=== PATIENT | male | born 1945 | race Caucasian/White ===

== ENCOUNTER 2021-02-04 19:05 | Emergency (ER) | payer MEDICARE, BC, SELFPAY ==
--- NOTE | ~2021-02-04 | CT_ITS ---
EXAMINATION: CT ABDOMEN AND PELVIS WITH CONTRAST CLINICAL INFORMATION: Upper abdominal pain COMPARISON: Previous CT of the abdomen and pelvis August 2015 TECHNIQUE: Multidetector volumetric images were obtained from the superior aspect of the liver through the pubic symphysis following administration 85 mL of Omnipaque 350 intravenous contrast. Sagittal and coronal reformatted images were obtained on the technologist's workstation. Oral contrast: Yes This CT examination was performed using dose optimization techniques as appropriate, variously including the following: *Automated exposure control *Adjustment of mA and/or kV according to patient size (this includes techniques or standardized protocols for targeted exams where dose is matched to indication/reason for exam; i.e. extremities or head) *Use of iterative reconstruction technique DLP: 826 mGy-cm FINDINGS: LUNG BASES: The visualized lung bases are unremarkable. LIVER, GALLBLADDER, AND BILIARY TREE: Artery. There is a small cyst seen high in the dome of the liver measuring 1 cm. The liver is otherwise unremarkable. The gallbladder is unremarkable with no evidence of radiopaque gallstones, gallbladder wall thickening, or obvious pericholecystic inflammatory changes. PANCREAS: Unremarkable. SPLEEN: Unremarkable. ADRENAL GLANDS: Unremarkable. KIDNEYS AND URETERS: There is bilateral mild renal cortical thinning or scarring. The kidneys are otherwise unremarkable. BLADDER: Unremarkable. GASTROINTESTINAL TRACT: There are postsurgical changes to the sigmoid colon. There is diverticulosis of the colon. There is question of mild wall thickening of the right colon and transverse colon versus changes due to underdistention. The small and large bowel are otherwise unremarkable. The appendix is not seen. There are surgical clips adjacent to the GE junction region. ABDOMINAL WALL: No significant hernia is appreciated. LYMPH NODES: Normal. VASCULAR: There is evidence of atherosclerotic disease. No aneurysm is seen. PELVIC VISCERA: Unremarkable. 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 There are degenerative changes of the lumbar spine. There is a cutaneous of fluid collection over the lower sacrum and coccyx. This measures 3 x 6 x 4.5 cm and AP longitudinal and transverse dimension. This is increased in size from August [address]/CT abdomen pelvis w con IMPRESSION: Diverticulosis of the colon. No evidence of diverticulitis. Question mild wall thickening/colitis of the right colon and transverse colon versus changes due to underdistention. Postsurgical changes to the sigmoid colon. Small liver cyst. Subcutaneous cyst over the lower sacrum and coccyx measuring 3 x 6 x 4.5 cm. This is increased in size from prior exam from 2016.
--- NOTE | 2021-02-04 19:11 | ED.NAVMDI ---
HPI - Nausea/Vomiting/Diarrhea General Chief complaint: Nausea/Vomiting/Diarrhea Stated complaint: N/V Time Seen by Provider: 02/04/21 19:08 Source: patient Mode of arrival: ambulatory Limitations: no limitations History of Present Illness HPI Narrative: Patient with history of gastritis/ulcers in the past woke up at 04:00 o'clock with increased vomiting mostly clear fluid with significant epigastric pain no diarrhea no melena. 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 off and on he gets vomiting episode not been admitted to the hospital for blood transfusion or active ulcer Related Data Previous Rx's Medication Instructions Recorded ondansetron 4 mg disintegrating 4 mg PO Q6-8H PRN #14 tab 02/05/21 tablet pantoprazole 40 mg tablet,delayed 40 mg PO DAILY #30 tab 02/05/21 release (Protonix) Allergies Allergy/AdvReac Type Severity Reaction Status Date / Time No Known Allergies Allergy Unverified 01/17/20 14:50 [No Known Allergies*] Review of Systems Review of Systems: Yes all other systems are reviewed and are negative [facility] Past Medical History Medical History Hypertension Social History Social History Advance Directives: No Physical Exam Vital Signs: Vital Signs: Last Vital Signs Temp 97.8 F 02/04/21 22:41 Pulse 97 02/05/21 00:00 Resp 16 02/05/21 00:00 BP 141/74 H 02/05/21 00:00 Pulse Ox 96 02/05/21 00:00 Body Mass Index 23.7 Appearance: Alert. Oriented X3. Moderate distress with active retching and vomiting Eyes: No pallor or icterus ENT: Pharynx normal. Oral Mucosa moist Neck: Normal inspection. Neck supple. CVS: Normal heart rate and rhythm. Pulses normal. Respiratory: No respiratory distress. Equal air entry bilateral, no wheezing/rales/rhonchi Abdomen: Soft , epigastric tenderness no rebound tenderness or guarding, Bowel sounds are present, no mass palpable, no CVA tenderness Skin: Skin warm and dry. Normal skin color. Normal skin turgor. Extremities: No lower extremity edema. No calf tenderness Neuro: Oriented X 3. MDM - Nausea/Vomiting/Diarrhea MDM Narrative Medical decision making narrative: Patient with acute gastritis with history of gastric ulcer no active bleeding now H&H stable patient taking p.o. fluids will discharge patient home advised to follow with addictions therapist for further evaluation including endoscopy Medical Records Attestation: I reviewed the patient's medical records. Lab Data Attestation: I reviewed the patient's lab results. Result diagrams: 02/04/21 19:25 02/04/21 19:25 Labs: Lab Results 02/04/21 02/04/21 02/04/21 Range/Units 19:25 19:25 19:25 WBC 12.2 H (4.8-10.8) X10*3/uL RBC 5.33 (4.60-5.80) X10*6/uL Hgb 19.0 H (14.0-18.0) g/dl Hct 48.3 (42-52) % MCV 90.6 (80-98) fL MCH 35.6 H (27.0-33.0) pg MCHC 39.3 H (31.0-36.0) g/dl RDW 11.6 (11.0-16.0) % Plt Count 110 L (160-400) X10*3/uL MPV 9.4 (9.4-12.4) fL Immature Gran % (Auto) 0.3 (0.0-0.4) % Neut % (Auto) 83.2 H (45-73) % Lymph % (Auto) 10.2 L (20-40) % [place] % (Auto) 5.9 (2-11) % Eos % (Auto) 0.1 (0-4) % Baso % (Auto) 0.3 (0-2) % Lymph # (Auto) 1.3 (1.2-4.9) X10*3/uL [place] # (Auto) 0.7 (0.1-1.2) X10*3/uL Eos # (Auto) 0.0 (0.0-0.4) X10*3/uL Baso # (Auto) 0.0 (0.0-0.2) X10*3/uL Abs Immat Gran (auto) 0.04 H (0.00-0.03) X10*3/uL Absolute Neuts (auto) 10.2 H (2.0-8.3) X10*3/uL Absolute Nucleated RBC 0.000 (0.0-0.012) X10*3/uL Nucleated RBC % (auto) 0.0 (0.0-0.2) /100WBC Smear Tech's Comments VERIFIED Sodium 132 L (135-145) mmol/L Potassium 3.6 (3.3-5.1) mmol/L Chloride 91 L (96-108) mmol/L Carbon Dioxide 20 L (22-29) mmol/L Anion Gap 25 H (12-20) BUN 9 (9-16) mg/dL Creatinine 1.31 (0.5-1.4) mg/dL Estim Creat Clear Calc 53.4 Estimated GFR 54 Random Glucose 124 H (60-115) mg/dL Lactic Acid 6.4 H* (0.5-2.0) mmol/L Lactic Acid Fup @ 2Hr (0.5-2.0) mmol/L Calcium 11.1 H (8.4-10.2) mg/dL Total Bilirubin 2.3 H (0.0-1.0) mg/dL AST 49 H (5-37) U/L ALT 36 (0-40) U/L Alkaline Phosphatase 144 H (39-117) U/L Total Protein 8.5 H (6.5-8.0) g/dL Albumin 5.1 H (3.5-5.0) g/dL Lipase 34 (8-78) U/L COVID-19 (JILLIAN) (Negative) COVID-19 Clin Com 02/04/21 02/04/21 Range/Units 23:04 Unknown WBC (4.8-10.8) X10*3/uL RBC (4.60-5.80) X10*6/uL Hgb (14.0-18.0) g/dl Hct (42-52) % MCV (80-98) fL MCH (27.0-33.0) pg MCHC (31.0-36.0) g/dl RDW (11.0-16.0) % Plt Count (160-400) X10*3/uL MPV (9.4-12.4) fL Immature Gran % (Auto) (0.0-0.4) % Neut % (Auto) (45-73) % Lymph % (Auto) (20-40) % [place] % (Auto) (2-11) % Eos % (Auto) (0-4) % Baso % (Auto) (0-2) % Lymph # (Auto) (1.2-4.9) X10*3/uL [place] # (Auto) (0.1-1.2) X10*3/uL Eos # (Auto) (0.0-0.4) X10*3/uL Baso # (Auto) (0.0-0.2) X10*3/uL Abs Immat Gran (auto) (0.00-0.03) X10*3/uL Absolute Neuts (auto) (2.0-8.3) X10*3/uL Absolute Nucleated RBC (0.0-0.012) X10*3/uL Nucleated RBC % (auto) (0.0-0.2) /100WBC Smear Tech's Comments Sodium (135-145) mmol/L Potassium (3.3-5.1) mmol/L Chloride (96-108) mmol/L Carbon Dioxide (22-29) mmol/L Anion Gap (12-20) BUN (9-16) mg/dL Creatinine (0.5-1.4) mg/dL Estim Creat Clear Calc Estimated GFR Random Glucose (60-115) mg/dL Lactic Acid (0.5-2.0) mmol/L Lactic Acid Fup @ 2Hr 1.0 (0.5-2.0) mmol/L Calcium (8.4-10.2) mg/dL Total Bilirubin (0.0-1.0) mg/dL AST (5-37) U/L ALT (0-40) U/L Alkaline Phosphatase (39-117) U/L Total Protein (6.5-8.0) g/dL Albumin (3.5-5.0) g/dL Lipase (8-78) U/L COVID-19 (JILLIAN) Negative (Negative) COVID-19 Clin Com See Note Discharge Plan Discharge Clinical Impression: Gastritis Qualifiers: Gastritis type: unspecified gastritis Chronicity: acute Gastritis bleeding: without bleeding Qualified Code(s): K29.00 - Acute gastritis without bleeding Patient Disposition: Home, Self-Care Instructions: Gastritis (ED) Additional Instructions: Avoid fried food Take medication as prescribed Follow-up with addictions therapist for further evaluation Prescriptions: New pantoprazole [Protonix] 40 mg tablet,delayed release (DR/EC) 40 mg PO DAILY Qty: 30 RF: 0 ondansetron 4 mg tablet,disintegrating 4 mg PO Q6-8H PRN (Reason: nausea and vomiting) Qty: 14 RF: 0 Referrals: Hong Mares MD [Physician] - 1 week Interventions: ED Discharge Assessment Last Done: 02/05/21 00:49 Discharge Date/Time: 02/05/21 00:51
[2021-02-04 19:15] VITALS: BP 140/80; BP 173/91; PULSE 115; PULSE 86; RESP 24; TEMP 36.6; O2SAT 100; O2SAT 98; BMI 23.7
[2021-02-04] MEDS: 0.9 % Sodium Chloride 1,000 ML 999 ML IVCONT ×2 (19:23→20:31)
[2021-02-04] MEDS: Prochlorperazine Edisylate 10 MG/2 ML VIAL IVPUSH (19:30)
[2021-02-04] MEDS: Famotidine/PF 20 MG/2 ML VIAL IVPUSH (19:30)
[2021-02-04 19:39] VITALS: BP 155/70
[2021-02-04 19:44] LABS: Basophils Percent Auto 0.3 % (0-2); Eosinophils Percent Auto 0.1 % (0-4); Hematocrit 48.3 % (42-52); Imm Gran Abs Auto 0.04 X10*3/uL (0.00-0.03); Imm Gran Pct Auto 0.3 % (0.0-0.4); Lymphocytes Absolute Auto 1.3 X10*3/uL (1.2-4.9); Lymphocytes Percent Auto 10.2 % (20-40); MANUAL DIFF FLAG SCAN; Mean Corpuscular Volume 90.6 fL (80-98); Mean Platelet Volume 9.4 fL (9.4-12.4); Monocytes Absolute Auto 0.7 X10*3/uL (0.1-1.2); Monocytes Percent Auto 5.9 % (2-11); Neutrophils Absolute Auto 10.2 X10*3/uL (2.0-8.3); Neutrophils Percent Auto 83.2 % (45-73); Platelet Count 110 X10*3/uL (160-400); Red Blood Count 5.33 X10*6/uL (4.60-5.80); Red Cell Distribution Width 11.6 % (11.0-16.0); SCAN SMEAR FLAG 1; White Blood Count 12.2 X10*3/uL (4.8-10.8)
[2021-02-04 19:54] LABS: Alanine Aminotransferase 36 U/L (0-40); Albumin Level 5.1 g/dL (3.5-5.0); Alkaline Phosphatase 144 U/L (39-117); Anion Gap 25 (12-20); Aspartate Amino Transferase 49 U/L (5-37); Bilirubin Total 2.3 mg/dL (0.0-1.0); Blood Urea Nitrogen 9 mg/dL (9-16); Calcium 11.1 mg/dL (8.4-10.2); Carbon Dioxide 20 mmol/L (22-29); Chloride 91 mmol/L (96-108); Creatinine Clr Calc Pharmacy 53.4; Estimated Glomerular Filt Rate 54; Glucose Random 124 mg/dL (60-115); Lipase 34 U/L (8-78); Potassium 3.6 mmol/L (3.3-5.1); Sodium 132 mmol/L (135-145); Total Protein 8.5 g/dL (6.5-8.0)
[2021-02-04 19:57] LABS: Lactic Acid 6.4 mmol/L (0.5-2.0)
[2021-02-04 20:00] VITALS: BP 173/90; PULSE 97; RESP 18; O2SAT 98
[2021-02-04] MEDS: iohexoL 350 MG/ML 100 ML INFUS..BTL IV (20:24)
[2021-02-04 20:25] LABS: Mean Corpuscular Hemoglobin 35.6 pg (27.0-33.0)
[2021-02-04 20:26] LABS: Mean Corpuscular HGB Conc 39.3 g/dl (31.0-36.0)
[2021-02-04 20:29] LABS: SLIDE REVIEW VERIFIED
--- NOTE | 2021-02-04 20:32 | PC.NURSE ---
pt is back from ct, no n/v at this time. skin warm and dry, no longer diaphoretic. pt resting comfortably
[2021-02-04 21:40] VITALS: BP 149/70; PULSE 95; RESP 16; O2SAT 98
[2021-02-04 21:42] LABS: Reflex Lactate? Lactic Acid Added
--- NOTE | 2021-02-04 21:57 | PC.NURSE ---
pt called Norm[facility] [phone] and states that he has been having the dry heavies today and has not been sleeping well. pt was taking pepto bis. for his dry heavies and every time he took it he vomited.
[2021-02-04] MEDS: ondansetron HCL 4 MG/2 ML VIAL IVPUSH (22:19)
[2021-02-04 22:41] VITALS: BP 149/88; PULSE 101; RESP 17; TEMP 36.6; O2SAT 98
[2021-02-04 23:25] LABS: COVID-19 Test Negative (Negative)
[2021-02-05] VITALS: BP 141/74; PULSE 97; RESP 16; O2SAT 96
[2021-02-05] MEDS: ondansetron HCL 4 MG/2 ML VIAL IVPUSH (00:43)
[2021-02-05] MEDS: Magnesium Hydrox/Alum Hydrox 30 ML ORAL.SUSP PO (00:43)
[2021-02-05] MEDS: Lidocaine HCl Viscous 2 % 15 ML SOLUTION MUCOUS MEM (00:43)
== END 2021-02-05 00:51 | disposition home or self-care (01) ==
PROVIDERS: Emergency Provider Internal Medicine; PCP Internal Medicine Medical Oncology
DX: K29.00 Acute gastritis without bleeding (principal); I10 Essential (primary) hypertension; Z87.19 Personal history of other diseases of the digestive system; Z20.822 Contact with and (suspected) exposure to COVID-19
CPT/HCPCS: 36415; 74177; 80053; 83605; 83690; 85025; 87086; 87635; 96361; 96374; 96375; 96376; 99284; J2405; Q9967

== ENCOUNTER 2022-01-19 06:37 | Emergency (ER) | payer MEDICARE, BC, SELFPAY ==
[2022-01-19 06:47] VITALS: BP 155/80; PULSE 80; RESP 18; TEMP 37.2; O2SAT 99; BMI 24.4
[2022-01-19 09:34] LABS: MANUAL DIFF FLAG NO
[2022-01-19 09:36] LABS: Basophils Percent Auto 0.2 % (0-2); Eosinophils Percent Auto 0.2 % (0-4); Hematocrit 42.4 % (42.0-52.0); Hemoglobin 15.2 g/dl (14.0-18.0); Imm Gran Abs Auto 0.03 X10*3/uL (0.00-0.03); Imm Gran Pct Auto 0.3 % (0.0-0.4); Lymphocytes Absolute Auto 0.9 X10*3/uL (1.2-4.9); Lymphocytes Percent Auto 9.5 % (20-40); Mean Corpuscular HGB Conc 35.8 g/dl (31.0-36.0); Mean Corpuscular Hemoglobin 32.4 pg (27.0-33.0); Mean Corpuscular Volume 90.4 fL (80.0-98.0); Monocytes Absolute Auto 0.7 X10*3/uL (0.1-1.2); Monocytes Percent Auto 7.7 % (2-11); Neutrophils Absolute Auto 7.3 x10*3/uL (2.0-8.3); Neutrophils Percent Auto 82.1 % (45-73); Platelet Count 142 X10*3/uL (160-400); Red Blood Count 4.69 X10*6/uL (4.60-5.80); Red Cell Distribution Width 11.7 % (11.0-16.0)
[2022-01-19 09:54] LABS: Alanine Aminotransferase 24 U/L (0-40); Albumin Level 4.7 g/dL (3.5-5.0); Alkaline Phosphatase 71 U/L (39-117); Anion Gap 18 (12-20); Aspartate Amino Transferase 22 U/L (5-37); Bilirubin Total 1.7 mg/dL (0.0-1.0); Blood Urea Nitrogen 12 mg/dL (9-16); Calcium 9.5 mg/dL (8.4-10.2); Carbon Dioxide 25 mmol/L (22-29); Chloride 89 mmol/L (96-108); Creatinine Clr Calc Pharmacy 66.3; Estimated Glomerular Filt Rate > 60; Glucose Random 122 mg/dL (60-115); Potassium 3.8 mmol/L (3.3-5.1); Sodium 128 mmol/L (135-145); Total Protein 7.5 g/dL (6.5-8.0)
--- NOTE | 2022-01-19 10:07 | ED.GENADULT ---
HPI - General Adult General Chief complaint: General Medical Stated complaint: headache, fever Time Seen by Provider: 01/19/22 10:07 Source: patient Mode of arrival: ambulatory Limitations: no limitations History of Present Illness HPI narrative: patient with headache and nausea and myalgias for the past 6 days. patient states chills and bodyaches, patient took self COVID test yesterday that was negative. Denies tick bites. Patient comes in for vomiting and headache. Onset (ago): day(s) Location: head Severity: mild Pain Consistency: constant Associated symptoms: denies other symptoms Related Data Previous Rx's Medication Instructions Recorded ondansetron 4 mg disintegrating 4 mg PO Q6-8H PRN nausea and 02/05/21 tablet vomiting #14 tabs pantoprazole 40 mg tablet,delayed 40 mg PO DAILY #30 tabs 02/05/21 release (Protonix) naproxen 500 mg tablet (Naprosyn) 500 mg PO BID #20 tabs 01/19/22 ondansetron 4 mg disintegrating 4 mg PO Q8H 4 days #12 tabs 01/19/22 tablet Allergies Allergy/AdvReac Type Severity Reaction Status Date / Time No Known Allergies Allergy Unverified 01/17/20 14:50 [No Known Allergies*] Review of Systems Constitutional: Constitutional: Reports no additional constitutional complaints Eyes: Eyes: Reports no additional eye complaints ENT: Denies dizziness Cardiovascular: Cardiovascular: Reports no additional cardiovascular complaints Respiratory: Respiratory: Reports as per HPI Gastrointestinal: Gastrointestinal: Reports no additional gastrointestinal complaints Musculoskeletal: Musculoskeletal: Reports no additional musculoskeletal complaints Integumentary/Breasts: Skin/Breast: Denies rash Neurologic: Reports system reviewed and no additional complaints, except as documented, Denies dizziness and Denies Sensory deficit (Neuro) Psychiatric: Psychiatric: Denies anxiety [facility] Past Medical History Medical History Hypertension Social History Social History Advance Directives: No Advance Directives Information Provided: No Physical Exam ED Vital Signs: Vital Signs - 24 hr 01/19/22 06:47 01/19/22 10:26 Temperature 98.9 F 98.7 F Pulse Rate 80 71 Respiratory Rate 18 14 Blood Pressure 155/80 H 168/86 H Pulse Oximetry 99 99 Oxygen Delivery Method Room Air Room Air BMI result Body Mass Index 24.4 Const General: healthy appearing Nutritional Appearance: average body habitus Orientation/consciousness: oriented to person and patient oriented x3 Limitations: no limitations HENMT Head: Yes normal to inspection Ears: external ears normal General nose exam: Normal external nose present Mouth: Normal oral and palatal mucosa present and oropharynx normal Throat: Yes posterior oropharynx normal Eyes General: appearance normal, both eyes and all related structures Neck Neck: Yes normal visual inspection Chest Chest palpation & inspection: normal inspection of the chest Resp Auscultation: clear to auscultation bilaterally Cardio Jugular venous distension: no JVD Rate: regular rate Rhythm: regular rhythm Heart sounds: S1 normal heart sound present and S2 normal heart sound present GI Inspection: Yes normal to inspection Palpation (GI): Soft to palpation, nontender and No hepatosplenomegaly present Auscultation: normal bowel sounds General: Yes no CVA tenderness Back/Spine/Pelvis Back: no CVA tenderness Skin General skin exam: no rashes or lesions noted Neuro General: oriented to person and patient oriented x3 Cranial nerves: Yes CN's II-XII intact bilaterally Motor exam (neuro): 5/5 motor strength present throughout Sensory Exam: No Sensory deficit (Neuro) Extrem General: Yes normal to inspection Psych Appearance: grossly normal Course Reevaluation(s) Reevaluation #1: Patient feeling better, covid negative, will dc on naprosyn and zofran for headache Time: 11:26 Medical Decision Making Lab Data Result diagrams: 01/19/22 09:31 01/19/22 09:31 Labs: Lab Results 01/19/22 01/19/22 01/19/22 Range/Units 09:31 09:31 10:40 WBC 9.0 (4.8-10.8) X10*3/uL RBC 4.69 (4.60-5.80) X10*6/uL Hgb 15.2 (14.0-18.0) g/dl Hct 42.4 (42.0-52.0) % MCV 90.4 (80.0-98.0) fL MCH 32.4 (27.0-33.0) pg MCHC 35.8 (31.0-36.0) g/dl RDW 11.7 (11.0-16.0) % Plt Count 142 L (160-400) X10*3/uL MPV 8.0 L (9.4-12.4) fL Immature Gran % (Auto) 0.3 (0.0-0.4) % Neut % (Auto) 82.1 H (45-73) % Lymph % (Auto) 9.5 L (20-40) % [place] % (Auto) 7.7 (2-11) % Eos % (Auto) 0.2 (0-4) % Baso % (Auto) 0.2 (0-2) % Lymph # (Auto) 0.9 L (1.2-4.9) X10*3/uL [place] # (Auto) 0.7 (0.1-1.2) X10*3/uL Eos # (Auto) 0.0 (0.0-0.4) X10*3/uL Baso # (Auto) 0.0 (0.0-0.2) X10*3/uL Abs Immat Gran (auto) 0.03 (0.00-0.03) X10*3/uL Absolute Neuts (auto) 7.3 (2.0-8.3) x10*3/uL Absolute Nucleated RBC 0.000 (0.0-0.012) X10*3/uL Nucleated RBC % (auto) 0.0 (0.0-0.2) /100WBC Sodium 128 L (135-145) mmol/L Potassium 3.8 (3.3-5.1) mmol/L Chloride 89 L (96-108) mmol/L Carbon Dioxide 25 (22-29) mmol/L Anion Gap 18 (12-20) BUN 12 (9-16) mg/dL Creatinine 1.04 (0.5-1.4) mg/dL Estim Creat Clear Calc 66.3 Estimated GFR > 60 Random Glucose 122 H (60-115) mg/dL Calcium 9.5 D (8.4-10.2) mg/dL Total Bilirubin 1.7 H (0.0-1.0) mg/dL AST 22 D (5-37) U/L ALT 24 (0-40) U/L Alkaline Phosphatase 71 D (39-117) U/L Total Protein 7.5 (6.5-8.0) g/dL Albumin 4.7 (3.5-5.0) g/dL COVID-19 (JILLIAN) Negative (Negative) COVID-19 Clin Com See Note Discharge Plan Discharge Clinical Impression: Headache, Nausea & vomiting Patient Disposition: Home, Self-Care Instructions: Acute Headache (ED), Acute Nausea and Vomiting (ED) Prescriptions: New naproxen [Naprosyn] 500 mg tablet 500 mg PO BID Qty: 20 0RF ondansetron 4 mg tablet,disintegrating 4 mg PO Q8H 4 Days Qty: 12 0RF No Action pantoprazole [Protonix] 40 mg tablet,delayed release (DR/EC) 40 mg PO DAILY Qty: 30 0RF ondansetron 4 mg tablet,disintegrating 4 mg PO Q6-8H PRN (Reason: nausea and vomiting) Qty: 14 0RF Referrals: Jose Rafael Hua MD [Primary Care Provider] - 1 week
[2022-01-19 10:26] VITALS: BP 168/86; PULSE 71; RESP 14; TEMP 37.1; O2SAT 99
[2022-01-19] MEDS: 0.9 % Sodium Chloride 1,000 ML 999 ML IVCONT (10:41)
[2022-01-19] MEDS: Ketorolac Tromethamine 30 MG/ML VIAL IVPUSH (10:49)
[2022-01-19] MEDS: ondansetron HCL 4 MG/2 ML VIAL IVPUSH (10:49)
[2022-01-19 11:05] LABS: COVID-19 Test Negative (Negative)
== END 2022-01-19 11:57 | disposition home or self-care (01) ==
PROVIDERS: Emergency Provider Emergency Medicine; PCP Internal Medicine Medical Oncology
DX: R51.9 Headache, unspecified (principal); M79.10 Myalgia, unspecified site; R11.2 Nausea with vomiting, unspecified; Z20.822 Contact with and (suspected) exposure to COVID-19; Z79.899 Other long term (current) drug therapy
CPT/HCPCS: 36415; 80053; 85025; 87635; 96374; 96375; 99284; J1885; J2405

== ENCOUNTER 2022-04-20 16:24 | Emergency (ER) | payer MEDICARE, BC, SELFPAY ==
--- NOTE | ~2022-04-20 | XR_ITS ---
EXAMINATION: CR X-RAY KNEE, TIBIA/FIBULA/ANKLE LEFT CLINICAL INFORMATION: Left leg pain. COMPARISON: None TECHNIQUE: 3 views of the left knee, 2 views of the left tibia and fibula and 3 views of the left ankle were obtained. FINDINGS: Left knee: Mild tricompartmental degenerative joint changes are seen. Mild femoral-tibial chondrocalcinosis. There is no acute fracture, dislocation or joint effusion. Mild to moderate atherosclerosis. Left tibia/fibula: Old healed distal tibia and fibular fractures are seen with associated deformity. The proximal tibia and fibula are intact. The soft tissues are unremarkable. Left ankle: Mild to moderate tibiotalar degenerative joint changes are seen. The tarsal bones are normally aligned. The soft tissues are unremarkable. XR/XR knee LT 2V IMPRESSION: 1. Old healed distal tibia and fibular fractures. No acute fracture. 2. Mild to moderate tibiotalar degenerative joint changes most consistent with osteoarthritis. 3. Mild tricompartmental left knee degenerative joint changes most consistent with osteoarthritis.
--- NOTE | ~2022-04-20 | XR_ITS ---
EXAMINATION: CR X-RAY KNEE, TIBIA/FIBULA/ANKLE LEFT CLINICAL INFORMATION: Left leg pain. COMPARISON: None TECHNIQUE: 3 views of the left knee, 2 views of the left tibia and fibula and 3 views of the left ankle were obtained. FINDINGS: Left knee: Mild tricompartmental degenerative joint changes are seen. Mild femoral-tibial chondrocalcinosis. There is no acute fracture, dislocation or joint effusion. Mild to moderate atherosclerosis. Left tibia/fibula: Old healed distal tibia and fibular fractures are seen with associated deformity. The proximal tibia and fibula are intact. The soft tissues are unremarkable. Left ankle: Mild to moderate tibiotalar degenerative joint changes are seen. The tarsal bones are normally aligned. The soft tissues are unremarkable. XR/XR tibia fibula LT 2V IMPRESSION: 1. Old healed distal tibia and fibular fractures. No acute fracture. 2. Mild to moderate tibiotalar degenerative joint changes most consistent with osteoarthritis. 3. Mild tricompartmental left knee degenerative joint changes most consistent with osteoarthritis.
--- NOTE | ~2022-04-20 | XR_ITS ---
EXAMINATION: CR X-RAY KNEE, TIBIA/FIBULA/ANKLE LEFT CLINICAL INFORMATION: Left leg pain. COMPARISON: None TECHNIQUE: 3 views of the left knee, 2 views of the left tibia and fibula and 3 views of the left ankle were obtained. FINDINGS: Left knee: Mild tricompartmental degenerative joint changes are seen. Mild femoral-tibial chondrocalcinosis. There is no acute fracture, dislocation or joint effusion. Mild to moderate atherosclerosis. Left tibia/fibula: Old healed distal tibia and fibular fractures are seen with associated deformity. The proximal tibia and fibula are intact. The soft tissues are unremarkable. Left ankle: Mild to moderate tibiotalar degenerative joint changes are seen. The tarsal bones are normally aligned. The soft tissues are unremarkable. XR/XR ankle LT 2V IMPRESSION: 1. Old healed distal tibia and fibular fractures. No acute fracture. 2. Mild to moderate tibiotalar degenerative joint changes most consistent with osteoarthritis. 3. Mild tricompartmental left knee degenerative joint changes most consistent with osteoarthritis.
[2022-04-20 16:31] VITALS: BP 172/71; BP 180/80; PULSE 66; PULSE 90; RESP 17; TEMP 37.1; O2SAT 100; BMI 25.1
--- NOTE | 2022-04-20 16:42 | ECG_ITS ---
Test Reason : FALL Blood Pressure : / mmHG Vent. Rate : 052 BPM Atrial Rate : 052 BPM P-R Int : 176 ms QRS Dur : 094 ms QT Int : 460 ms P-R-T Axes : 071 002 060 degrees QTc Int : 427 ms Sinus bradycardia Otherwise normal ECG When compared with ECG of 07-JUN-2017 15:52, No significant change was found Referred By: Cheyanne Camacho Electronically Signed By:Jose Martinez
--- OUTSIDE RECORDS SUMMARY | 2022-04-20 17:08 | XMS_ITS | Continuity of Care Document ---
:[address] [facility] Care Team Providers Name Role Phone [facility] Unavailable Unavailable Problems Combined list of problems from Department of Defense and Veterans Affairs facilities. It does not include entries that were removed or entered in error. Problem Status Onset Problem Type Date of Comments Source Date Resolution History of total Active 10/01/19 Condition Dec 28, [facility] 2018 Entered WSTRN By: IRWIN TURPIN [facility] G[facility]EN F Comment: LEFT THR . 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 Nov 27, 2019 Entered By: LYNDON MEDELLIN Comment: Also Surg Repair, PUD (varices) Cocaine abuse Active Condition Jun 15, [facility] 2017 Entered By: ALETA SIMS Comment: Cocaine (Powder) Use Disorder, Mild History of Active Condition Jan 19 [facility] colonoscopy 2011 Entered WSTRN By: IRWIN TURPIN [facility] F Comment: His sister of colon cancer. Nov 27, 2019 Entered By: LYNDON MEDELLIN Comment: Last Surveil Colonsocopy 2018: +Polyps; Does Every 5 Yrs; Never CRC Low back pain Active Condition Nov 26, [facility] 2019 Entered By: LYNDON MEDELLIN Comment: Non-Radicular ; Degen Arthritis L-Spine; PT Helps Diagnosis: Active Diagnosis [place] ICD-10-CM I10 Essential (primary) hypertensionwith Provider Comments: Essential (Primary) Hypertension Diagnosis: Active Diagnosis [facility] ICD-10-CM Z46.1 WSTR N Encounter for [place] fitting and HCS adjustment of hearing aidwith Provider Comments: Encounter for Fitting and Adjustment of Hearing Aid Diagnosis: Active Diagnosis [place] ICD-10-CM Z23 Encounter for immunizationwith Provider Comments: Encounter for Immunization Diagnosis: Active Diagnosis [facility] ICD-10-CM H43.812 [place] TRN Vitreous [place] degeneration, left H CS eyewith Provider Comments: Vitreous Degeneration (PVD),Left Eye Medications Combined list of outpatient medications from Department of Defense and Veterans Affairs facilities. Medications provided include 1) outpatient medications from the last 15 months, and 2) patient-reported medications. Medication Details Route Status Patient Prescription Prescription Last Ordering Order Source Instructions Expires Number Dispense Provider Date Date HYDROCHLORO TAKE ONE ORAL ACTIVE VANWAGNER 03/02/ [place] THIAZIDE TABLET PRINCESS 2018 CNTR[facility] 25MG TAB BY MOUTH F [facility]N ONCE [place] [facility] [place] TAKE ONE ORAL ACTIVE 02/05/2023 [id number] AMPARO MEDELLIN 02/25/ [place] 25MG TAB TABLET 2 2021 IELD BY MOUTH ONCE DAILY FOR BLOOD PRESSURE /HEART [place] TAKE ONE ORAL DISCONT 01/22/2022 [id number] AMPARO MEDELLIN 01/21/ [place] 25MG TAB TABLET INUED 2020 IELD BY MOUTH ONCE DAILY FOR BLOOD PRESSURE /HEART MULTIVITAMI TAKE ONE ORAL ACTIVE VANWAGNER 01/05/ [place] NS TABLET PRINCESS 2010 CNTRL W/MINERALS BY MOUTH F [facility]N TAB DAILY [place] [facility] Allergies, Adverse Reactions, Alerts Combined list of allergies from Department of Defense and Veterans Affairs facilities. It does not include entries that were removed or entered in error. Substance Category Reaction Severity Reaction Status Date Comments S ource type Reported LISINOPRIL Propensity Cough Propensity active [facility] to adverse to adverse 4 WS TRN reactions reactions [place] to drug to drug [facility] (finding) (finding) Immunizations Combined list of available immunizations from the Department of Defense and Veterans Affairs facilities. Immunization Series Date Administered Site Reaction Lot CVX Drug St atus Comments Source Given By Number Code Fixed Capital Clerk INFLUENZA, complet [place] INJECTABLE, 2021 ed IE LD QUADRIVALENT, PRESERVATIVE FREE COVID-19 4 complet MOD; SP RINGF (MODERNA), 2021 ed [id number] IELD MRNA, LNP-S, ; PF, 100 MCG/0.5ML 2 DOSE OR 50 MCG/0.25ML DOSE COVID-19 3 complet MOD; SP RINGF (MODERNA), 2020 ed [id number]; IELD MRNA, LNP-S, 02 PF, 100 MCG 2 OR 50 MCG DOSE INFLUENZA complet S [place] VACCINE, 2020 ed IELD QUADRIVALENT, ADJUVANTED COVID-19 2 complet MOD; SP RINGF (MODERNA), 2020 ed [id number]; IELD MRNA, LNP-S, 02 PF, 100 1 MCG/0.5 ML DOSE COVID-19 1 complet MOD; SP RINGF (MODERNA), 2020 ed [id number]; IELD MRNA, LNP-S, 02 PF, 100 1 MCG/0.5 ML DOSE INFLUENZA, complet [facility] SEASONAL, 2018 ed CNTR L INJECTABLE [facility] RN [place] [facility] PNEUMOCOCCAL complet [facility] POLYSACCHARID 2018 ed CN[facility]L E PPV23 [facility] [place] [facility] INFLUENZA, complet outsid e [facility] SEASONAL, 2017 ed provider C NTRL INJECTABLE [facility] [place] [facility] ZOSTER 2 complet rite aide [facility] RECOMBINANT 2017 ed [place] CN[facility] ma [facility] [place] [facility] ZOSTER 1 complet ouitside V A RECOMBINANT 2017 ed imm CN TRL record WSTRN rite aide [place] [facility] FLU,3 YRS complet Site: V A (HISTORICAL) 2015 ed Left C NTRL Deltoid [facility] [place] [facility] FLU,3 YRS complet V A (HISTORICAL) 2014 ed C NTRL [facility] [place] [facility] FLU,3 YRS complet Site: V A (HISTORICAL) 2013 ed Right C [facility]TRL Deltoid [facility] [place] [facility] FLU,3 YRS complet Site: V A (HISTORICAL) 2012 ed Right C NTRL Deltoid [facility] [place] [facility] HEP A-HEP B 08/01/ TIEGS,VERNETT 104 compl et [place] 2012 E L ed CNTRL [facility] [place] [facility] HEP A-HEP B 03/03/ TIEGS,VERNETT 104 compl et [place] 2011 E L ed CN[facility]L [facility] [place] [facility] HEP A-HEP B 01/31/ TIEGS,VERNETT 104 compl et [place] 2011 E L ed CNTRL [facility] [place] [facility] FLU,3 YRS complet Site: V A (HISTORICAL) 2011 ed Left C NTRL Deltoid [facility] [place] [facility] DTAP, complet Site: [facility] UNSPECIFIED 2011 ed Right CN TRL FORMULATION Deltoid [facility] [place] [facility] FLU,3 YRS complet Site: V A (HISTORICAL) 2010 ed Right C NTRL Deltoid [facility] [place] [facility] PNEUMOCOCCAL, complet Sit e: [facility] UNSPECIFIED 2010 ed Left CN TRL FORMULATION Deltoid [facility]N [place] [facility] TD(ADULT) complet stated [facility] UNSPECIFIED 2007 ed CN TRL FORMULATION WS TRN [place] [facility] FLU,3 YRS 04/13/ DARIN MASSEY 88 complet [facility] (HISTORICAL) 1998 N D ed C NTRL [facility]N [place] [facility] Results Combined list of recent chemistry, hematology and other laboratory results from Department of Defense and Veterans Affairs, ranging from 15 months to all on record, depending upon the facility. Order Results Value Reference Date Interpretation Specimen Commen ts Source Name Range URIC URATE 6.4 3.5 - 7.2 01/28 Specimen Type: SERUM [place] ACID [MASS/VOLU /2021 No comment en tered. LD ME] IN Ordering Provid er: LYNDON MEDELLIN SERUM OR Report Release d Date/Time: Aug 21, 2021 09:25 AM PLASMA Reporting Lab: [place] [facility] [facility] [address] [facility] [address] Performing Lab: [facility] [place] [facility] [address] [facility] [address] LIPID CHOLESTERO 137 7 - 199 01/28 Specimen Type : SERUM [place] PANEL L /2021 No comment enter ed. LD FASTING [MASS/VOLU Ordering Pro vider: LYNDON MEDELLIN ME] IN Report Released Date/Time: Aug 21, 2021 09:25 AM SERUM OR Reporting Lab: [facility] [place] [facility] PLASMA [address] [facility] [address] Performing Lab: [place] [facility] [place] [facility] [address] [facility] [address] LIPID TRIGLYCERI 109 0 - 150 01/28 Specimen Type : SERUM [place] PANEL DE /2021 No comment enter ed. LD FASTING [MASS/VOLU Ordering Pro vider: LYNDON MEDELLIN ME] IN Report Released Date/Time: Aug 21, 2021 09:25 AM SERUM OR Reporting Lab: [place] [facility] [place] [facility] PLASMA [address] [facility] [address] Performing Lab: [place] [facility] [place] [facility] [address] [facility] [address] LIPID CHOLESTERO 71 0 - 129 01/28 Specimen Type : SERUM [place] PANEL L IN LDL /2021 No comment ente red. LD FASTING [MASS/VOLU Ordering Pro vider: LYNDON MEDELLIN ME] IN Report Released Date/Time: Aug 21, 2021 09:25 AM SERUM OR Reporting Lab: [place] [facility] [place] [facility] PLASMA BY [address] [facility] [address] CALCULATIO Performing L ab: [facility] [place] [facility] N [address] [facility] [address] LIPID CHOLESTERO 3.1 01/28 Specimen Type : SERUM [place] PANEL L.TOTAL/CH /2021 No comment en tered. LD FASTING OLESTEROL Ordering Prov ider: LYNDON MEDELLIN IN HDL Report Released Date/Time: Aug 21, 2021 09:25 AM [MASS Reporting Lab: [facility] [place] [facility] RATIO] IN [address] [facility] [address] SERUM OR Performing Lab : [facility] [place] [facility] PLASMA [address] [facility] [address] LIPID CHOLESTERO 44 40 - 60 01/28 Specimen Type : SERUM [place] PANEL L IN HDL No comment ente red. LD FASTING [MASS/VOLU Ordering Pro vider: LYNDON MEDELLIN ME] IN Report Released Date/Time: Aug 21, 2021 09:25 AM SERUM OR Reporting Lab: [facility] [place] [facility] PLASMA [address] [facility] [address] Performing Lab: [facility] [place] [facility] [address] [facility] [address] CBC LEUKOCYTES 8.20 4.50 - 01/28 Specimen Type : BLOOD [place] [#/VOLUME] 11.00 No comment en tered. LD IN BLOOD Ordering Provi anya: LYNDON MEDELLIN BY Report Released Date/Time: Aug 21, 2021 09:25 AM AUTOMATED Reporting Lab : [facility] [place] [facility] COUNT [address] [facility] [address] Performing Lab: [facility] [place] [facility] [address] [facility] [address] CBC ERYTHROCYT 4.47 4.23 - 01/28 Specimen Type : BLOOD [place] ES 5.66 No comment enter ed. LD [#/VOLUME] Ordering Pro vider: LYNDON MEDELLIN IN BLOOD Report Release d Date/Time: Aug 21, 2021 09:25 AM BY Reporting Lab: [place] [facility] [place] [facility] AUTOMATED [address] [facility] [address] COUNT Performing Lab: [facility] [place] [facility] [address] [facility] [address] CBC HEMOGLOBIN 14.6 12.8 - 17 01/28 Specimen Ty pe: BLOOD [place] [MASS/VOLU /2021 No comment en tered. LD ME] IN Ordering Provid er: LYNDON MEDELLIN BLOOD Report Released Date/Time: Aug 21, 2021 09:25 AM Reporting Lab: [facility] [place] [facility] [address] [facility] [address] Performing Lab: [facility] [place] [facility] [address] [facility] [address] CBC HEMATOCRIT 41.6 39.2 - 01/28 Specimen Type : BLOOD [place] [VOLUME 50.4 /2021 No comment enter ed. LD FRACTION] Ordering Prov ider: LYNDON MEDELLIN OF BLOOD Report Release d Date/Time: Aug 21, 2021 09:25 AM BY Reporting Lab: [facility] [place] [facility] AUTOMATED [address] [facility] [address] COUNT Performing Lab: [facility] [place] [facility] [address] [facility] [address] CBC MCV 93.1 82 - 99 01/28 Specimen Type: B LOOD [place] [ENTITIC /2021 No comment ente red. LD VOLUME] BY Ordering Pro vider: LYNDON MEDELLIN AUTOMATED Report Releas ed Date/Time: Aug 21, 2021 09:25 AM COUNT Reporting Lab: [facility] [place] [facility] [address] [facility] [address] Performing Lab: [facility] [place] [facility] [address] [facility] [address] CBC MCHC 35.1 30.8 - 01/28 Specimen Type: B LOOD [place] [MASS/VOLU 35.1 /2021 No comment en tered. LD ME] BY Ordering Provid er: LYNDON MEDELLIN AUTOMATED Report Releas ed Date/Time: Aug 21, 2021 09:25 AM COUNT Reporting Lab: [facility] [place] [facility] [address] [facility] [address] Performing Lab: [facility] [place] [facility] [address] [facility] [address] CBC PLATELETS 181 140 - 360 01/28 Specimen Typ e: BLOOD [place] [#/VOLUME] /2021 No comment en tered. LD IN BLOOD Ordering Provi ayna: LYNDON MEDELLIN BY Report Released Date/Time: Aug 21, 2021 09:25 AM AUTOMATED Reporting Lab : [facility] [place] [facility] COUNT [address] [facility] [address] Performing Lab: [facility] [place] [facility] [address] [facility] [address] CBC ERYTHROCYT 11.5 12.0 - 01/28 L Specimen Type : BLOOD [place] E 16.0 /2021 No comment enter ed. LD DISTRIBUTI Ordering Pro vider: LYNDON MEDELLIN ON WIDTH Report Release d Date/Time: Aug 21, 2021 09:25 AM [RATIO] BY Reporting La b: [facility] [place] [facility] AUTOMATED [address] [facility] [address] COUNT Performing Lab: [facility] [address] [facility] [address] CBC MCH 32.7 26.2 - 01/28 H Specimen Type: B LOOD [place] [ENTITIC 32.6 /2021 No comment ente red. LD MASS] BY Ordering Provi anya: LYNDON MEDELLIN AUTOMATED Report Releas ed Date/Time: Aug 21, 2021 09:25 AM COUNT Reporting Lab: [facility] [facility] [address] [facility] [address] Performing Lab: [facility]USE[address] [address] URINALYS COLOR OF Yellow 01/28 Specimen Type: URINE [place] IS URINE /2021 No comment enter ed. LD Ordering Provid er: LYNDON MEDELLIN Report Released Date/Time: Aug 21, 2021 09:25 AM Reporting Lab: [facility] [place] [facility] [address] [facility] [address] Performing Lab: [facility] [address] [address] URINALYS APPEARANCE Clear 01/28 Specimen Typ e: URINE [place] IS OF URINE /2021 No comment ente red. LD Ordering Provid er: LYNDON MEDELLIN Report Released Date/Time: Aug 21, 2021 09:25 AM Reporting Lab: [facility] [place] [facility] [address] [facility] [address] Performing Lab: [facility] [address] [facility] [address] URINALYS GLUCOSE Negative 01/28 Specimen Type: URINE [place] IS [MASS/VOLU /2021 No comment en tered. LD ME] IN Ordering Provid er: LYNDON MEDELLIN URINE Report Released Date/Time: Aug 21, 2021 09:25 AM Reporting Lab: [facility] [place] [facility] [address] [facility] [address] Performing Lab: [facility] [facility] [address] [facility] [address] URINALYS KETONES Negative 01/28 Specimen Type: URINE [place] IS [MASS/VOLU /2021 No comment en tered. LD ME] IN Ordering Provid er: LYNDON MEDELLIN URINE BY Report Release d Date/Time: Aug 21, 2021 09:25 AM TEST STRIP Reporting La b: [facility] [place] [facility] [address] [facility] [address] Performing Lab: [place] [facility] TRN [facility] [address] [address] URINALYS ERYTHROCYT Negative 01/28 Specimen Ty pe: URINE [place] IS ES No comment enter ed. LD [PRESENCE] Ordering Pro vider: LYNDON MEDELLIN IN URINE Report Release d Date/Time: Aug 21, 2021 09:25 AM SEDIMENT Reporting Lab: [facility] [place] [facility] BY LIGHT [address] [facility] [address] MICROSCOPY Performing L ab: [facility] [place] [facility] [address] [facility] [address] URINALYS PROTEIN Negative 01/28 Specimen Type: URINE [place] IS [MASS/VOLU /2021 No comment en tered. LD ME] IN Ordering Provid er: LYNDON MEDELLIN URINE BY Report Release d Date/Time: Aug 21, 2021 09:25 AM TEST STRIP Reporting La b: [facility] [place] [facility] [address] [facility] [address] Performing Lab: [facility] TRN [facility] [address] [facility] [address] URINALYS NITRITE Negative 01/28 Specimen Type: URINE [place] IS [PRESENCE] /2021 No comment en tered. LD IN URINE Ordering Provi anya: LYNDON MEDELLIN Report Released Date/Time: Aug 21, 2021 09:25 AM Reporting Lab: [facility] TR[facility] [address] [facility] [address] Performing Lab: [facility] [place] [facility] [address] [facility] [address] URINALYS BILIRUBIN. Negative 01/28 Specimen Ty pe: URINE [place] IS TOTAL No comment enter ed. LD [PRESENCE] Ordering Pro vider: LYNDON MEDELLIN IN URINE Report Release d Date/Time: Aug 21, 2021 09:25 AM Reporting Lab: [facility] [place] [facility] [address] [facility] [address] Performing Lab: [place] [facility] [place] [facility] [address] [facility] [address] URINALYS SPECIFIC 1.012 1.016 - 01/28 L Specimen Type: URINE [place] IS GRAVITY OF 1.022 /2021 No comment en tered. LD URINE BY Ordering Provi anya: LYNDON MEDELLIN REFRACTOME Report Relea sed Date/Time: Aug 21, 2021 09:25 AM TRY Reporting Lab: [facility] [place] [facility] [address] [facility] [address] Performing Lab: [facility] [place] [facility] [address] [facility] [address] URINALYS PH OF 8.0 5.0 - 9.0 01/28 Specimen Type : URINE [place] IS URINE BY /2021 No comment ente red. LD TEST STRIP Ordering Pro vider: LYNDON MEDELLIN Report Released Date/Time: Aug 21, 2021 09:25 AM Reporting Lab: [facility] [place] [facility] [address] [facility] [address] Performing Lab: [facility] [place] [facility] [address] [facility] [address] URINALYS UROBILINOG <2.0 <2.0 - 2.0 01/28 Specimen Type: URINE [place] IS EN /2021 No comment enter ed. LD [MASS/VOLU Ordering Pro vider: LYNDON MEDELLIN ME] IN Report Released Date/Time: Aug 21, 2021 09:25 AM URINE BY Reporting Lab: [facility] [place]N [place] [facility] TEST STRIP [address] [facility] [address] Performing Lab: [place] [facility] [place] [facility] [address] [facility] [address] URINALYS LEUKOCYTE Negative 01/28 Specimen Typ e: URINE [place] IS ESTERASE No comment ente red. LD [PRESENCE] Ordering Pro vider: LYNDON MEDELLIN IN URINE Report Release d Date/Time: Aug 21, 2021 09:25 AM BY TEST Reporting Lab: [facility] STRIP [address] [facility] [address] Performing Lab: [facility] [address] [facility] [address] CALCIUM CALCIUM 9.6 8.5 - 10.2 01/28 Specimen Type : SERUM [place] [MASS/VOLU /2021 No comment en tered. LD ME] IN Ordering Provid er: LYNDON MEDELLIN SERUM OR Report Release d Date/Time: Aug 21, 2021 09:25 AM PLASMA Reporting Lab: [facility] [address] [facility] [address] Performing Lab: [facility] [address] [facility] [address] TSH THYROTROPI 1.48 0.35 - 01/28 Specimen Type : SERUM [place] N 5.00 No comment enter ed. LD [UNITS/VOL Ordering Pro vider: LYNDON MEDELLIN UME] IN Report Released Date/Time: Aug 21, 2021 09:25 AM SERUM OR Reporting Lab: [facility] PLASMA [address] [facility] [address] Performing Lab: [facility] [address] [facility] [address] BASIC UREA 12 7 - 25 01/28 Specimen Type: S AKI [place] METABOLI NITROGEN No comment ent ered. LD C PANEL [MASS/VOLU Ordering Pro vider: LYNDON MEDELLIN (fasting ME] IN Report Release d Date/Time: Aug 21, 2021 09:25 AM ) SERUM OR Reporting Lab: [facility] PLASMA [address] [facility] [address] Performing Lab: [facility] [address] [facility] [address] BASIC GLUCOSE 97 65 - 100 01/28 Specimen Type: SERUM [place] METABOLI [MASS/VOLU /2021 No comment e ntered. LD C PANEL ME] IN Ordering Provid er: LYNDON MEDELLIN (fasting SERUM OR Report Releas ed Date/Time: Aug 21, 2021 09:25 AM ) PLASMA Reporting Lab: [facility] [address] [facility] [address] Performing Lab: [facility] [address] [facility] [address] BASIC SODIUM 135 135 - 145 01/28 Specimen Type: SERUM [place] METABOLI [MOLES/VOL /2021 No comment e ntered. LD C PANEL UME] IN Ordering Provid er: LACIELYNDON (fasting SERUM OR Report Releas ed Date/Time: Aug 21, 2021 09:25 AM ) PLASMA Reporting Lab: [facility] [address] [facility] [address] Performing Lab: [facility] [address] [facility] [address] BASIC POTASSIUM 4.3 3.5 - 5.0 01/28 Specimen Typ e: SERUM [place] METABOLI [MOLES/VOL No comment e ntered. LD C PANEL UME] IN Ordering Provid er: LACIELYNDON (fasting SERUM OR Report Releas ed Date/Time: Aug 21, 2021 09:25 AM ) PLASMA Reporting Lab: [facility] [address] [facility] [address] Performing Lab: [facility] [address] [facility] [address] BASIC CHLORIDE 97 100 - 110 01/28 L Specimen Type : SERUM [place] METABOLI [MOLES/VOL /2021 No comment e ntered. LD C PANEL UME] IN Ordering Provid er: LYNDON MEDELLIN (fasting SERUM OR Report Releas ed Date/Time: Aug 21, 2021 09:25 AM ) PLASMA Reporting Lab: [facility] [address] [facility] [address] Performing Lab: [facility] [address] [facility] [address] BASIC CARBON 27 20 - 30 01/28 Specimen Type: S AKI [place] METABOLI DIOXIDE, /2021 No comment ent ered. LD C PANEL TOTAL Ordering Provid er: LYNDON MEDELLIN (fasting [MOLES/VOL Report Rele ased Date/Time: Aug 21, 2021 09:25 AM ) UME] IN Reporting Lab: [facility] [place] [facility] SERUM OR [address] [facility] [address] PLASMA Performing Lab: [place] [facility] [place] [facility] [address] [facility] [address] BASIC CREATININE 1.10 0.50 - 01/28 Specimen Type : SERUM [place] METABOLI [MASS/VOLU 1.40 /2021 No comment e ntered. LD C PANEL ME] IN Ordering Provid er: LYNDON MEDELLIN (fasting SERUM OR Report Releas ed Date/Time: Aug 21, 2021 09:25 AM ) PLASMA Reporting Lab: [facility] [place] [facility] [address] [facility] [address] Performing Lab: [place] [facility] [place] [facility] [address] [facility] [address] BASIC GLOMERULAR 70 60 01/28 Specimen Type : [facility] [place] MET[place]OLI FILTRATION /2021 No comment e ntered. LD C PANEL RATE/1.73 Ordering Prov ider: LYNDON MEDELLIN (fasting SQ Report Release d Date/Time: Aug 21, 2021 09:25 AM ) CONSTANZA Reporting La b: [facility] [place] [facility] D [VOLUME [address] [facility] [address] RATE/AREA] Performing L ab: [facility] [place] [facility] IN SERUM, [address] [address] PLASMA OR BLOOD BY CREATININE -BASED FORMULA (CKD-EPI) LIVER PROTEIN 7.4 6.0 - 8.3 01/28 Specimen Type: [facility] [place] FUNCTION [MASS/VOLU /2021 No comment e ntered. LD ME] IN Ordering Provid er: LYNDON MEDELLIN SER[facility] OR Report Release d Date/Time: Aug 21, 2021 09:25 AM PLASMA Reporting Lab: [facility] [place] [facility] [address] [facility] [address] Performing Lab: [facility] [place] [facility] [address] [facility] [address] LIVER ALBUMIN 4.2 3.5 - 5.0 01/28 Specimen Type: [facility] [place] FUNCTION [MASS/VOLU /2021 No comment e ntered. LD [place]] [place] Ordering Provid er: LYNDON MEDELLIN SERUM OR Report Release d Date/Time: Aug 21, 2021 09:25 AM PLASMA Reporting Lab: [facility] [place] [facility] [address] [address] Performing Lab: [facility] [place] [facility] [address] [address] LIVER ALKALINE 74 40 - 150 01/28 Specimen Type: SERUM [place] FUNCTION PHOSPHATAS No comment e ntered. LD E Ordering Provid er: LYNDON MEDELLIN [ENZYMATIC Report Relea sed Date/Time: Aug 21, 2021 09:25 AM ACTIVITY/V Reporting [place] b: [facility] [place]] [place] [address] [facility] [address] SERUM OR Performing Lab : [facility] [place] [facility] PLASMA [address] [address] LIVER ASPARTATE 19 5 - 34 01/28 Specimen Type: SERUM [place] FUNCTION AMINOTRANS No comment e ntered. LD FERASE Ordering Provid er: LYNDON MEDELLIN [ENZYMATIC Report Relea sed Date/Time: Aug 21, 2021 09:25 AM ACTIVITY/V Reporting [place] b: [facility] [place]] [place] [address] [facility] [address] SERUM OR Performing Lab : [facility] [place] [facility] PLASMA [address] [address] LIVER ALANINE 20 6 - 55 01/28 Specimen Type: S AKI [place] FUNCTION AMINOTRANS No comment e ntered. LD FERASE Ordering Provid er: LYNDON MEDELLIN [ENZYMATIC Report Relea sed Date/Time: Aug 21, 2021 09:25 AM ACTIVITY/V Reporting [place] b: [facility] [place] [facility] [place]] [place] [address] [facility] [address] SERUM OR Performing Lab : [facility] [place] [facility] PL[facility]MA [address] [address] LIVER BILIRUBIN. 1.7 0.2 - 1.2 01/28 H Specimen Ty pe: SERUM [place] FUNCTION TOTAL /2021 No comment ente red. LD [MASS/VOLU Ordering Pro vider: LYNDON MEDELLIN [place]] IN Report Released Date/Time: Aug 21, 2021 09:25 AM SERUM OR Reporting Lab: [facility] PLASMA [address] [address] [facility] [address] [address] VITAMIN 25-HYDROXY 45 20 - 50 01/28 Specimen Type : SERUM [place] D VITAMIN D3 /2021 No comment en tered. ROB (25-[place]) [MASS/VOLU Ordering Pro vider: LYNDON MEDELLIN ME] IN Report Released Date/Time: Aug 21, 2021 09:25 AM SERUM OR Reporting Lab: [facility] PLASMA [address] [address] Performing Lab: [facility] [address] [address] VITAMIN COBALAMIN 335 200 - 900 01/28 Specimen Typ e: [facility] ([facility]ITAMIN /2021 No comment entsusana red. LD B12) Ordering Provid er: LYNDON MEDELLIN [MASS/VOLU Report Relea sed Date/Time: Aug 21, 2021 09:25 AM ME] IN Reporting Lab: [facility] SERUM [place] [address] [address] PLASMA Performing Lab: [facility] [address] [facility] [address] Vital Signs Combined list of inpatient and outpatient Vital Signs from Department of Defense and Veterans Affairs, ranging from 12 months to all on record, depending upon the facility. Vital Sign Value Date Comments Source SYSTOLIC BLOOD PRESSURE 149 02/04/2022 10:20:26 [place] DIASTOLIC BLOOD PRESSURE 84 02/04/2022 10:20:26 [place] PULSE OXIMETRY 98% 02/04/2022 10:20:26 [facility] WEIGHT 182 02/04/2022 10:20:26 [place] BMI 27kg/m2 02/04/2022 10:20:26 [place] HEIGHT 69 02/04/2022 10:20:26 [place] TEMPERATURE 97.4 02/04/2022 10:20:26 [place] PULSE 82 02/04/2022 10:20:26 [place] RESPIRATION 18 02/04/2022 10:20:26 [place] SYSTOLIC BLOOD PRESSURE 131 08/21/2021 09:09:45 [place] DIASTOLIC BLOOD PRESSURE 86 08/21/2021 09:09:45 [place] PULSE OXIMETRY 9% 08/21/2021 09:09:45 [place] WEIGHT 176 08/21/2021 09:09:45 [place] BMI 26kg/m2 08/21/2021 09:09:45 [place] HEIGHT 69 08/21/2021 09:09:45 [place] TEMPERATURE 98 08/21/2021 09:09:45 [place] PULSE 84 08/21/2021 09:09:45 [place] RESPIRATION 18 08/21/2021 09:09:45 [place] Encounters Combined list of: 1) Encounters from Department of Veterans Affairs facilities going back up to the last 18 months. 2) Encounters from the Department of Defense facilities going back up to 280 months. 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 Diagnos KIAN,C 11/10 [facility] A[facility] [id number] is: DOMINICK E CNTRL REPAIR/MOD ICD-10- [place] IFYING CM [place] Z46.1 [facility] for fitting and adjustm ent of hearing aid<br/ >with Provide r Comment s: Encount er for Fitting and Adjustm ent of Hearing Aid OFFICE O/P 41874-6.63 [facility]21 [facility] EST LOW [id number] is: N IELD 20-29 MIN 33 ICD-10- CM I10 Essenti al (primar y) hyperte nsion<b r/>with Provide r Comment s: Essolman al (Primar y) Hyperte nsion Outpatient [id number] 03/04 [facility] [id number] [facility] [place] [facility] Outpatient [id number] 04/01 [facility] En[facility] [id number] /2021 [facility] [place] [facility] ADM [id number] Diagnos KATE,J 04/11 [facility] RINGF SARSCOV2 [id number] is: OANNE IELD 50MCG/0.25 05 ICD-10- MLBST CM Z23 Encount er for immuniz ation<b r/>with Provide r Comment s: Encount er for Immuniz ation OFFICE O/P 37687-6.63 Diagnos [facility] 08/21 [facility] EST LOW [id number] is: N IELD 20-29 MIN 38 ICD-10- CM I10 Joey al (primar y) hyperte nsion<b r/>with Provide r Comment s: Joey al (Primar y) Hyperte nsion Outpatient [id number] 09/18 [facility] [id number] [facility] [place] [facility] OFFICE O/P 52684-6.63 Diagnos ROSANA, 10/20 [facility] EST [id number] is: OLGA IELD MINIMAL 47 ICD-10- PROB CM Z23 Encount er for immuniz ation<b r/>with Provide r Comment s: Encount er for Immuniz ation BATTERY [id number] Diagnos Jamilah LANGSTON 01/25 [facility] FOR [id number] is: DOMINICK E CNTRL HEARING ICD-10- WSTRN DEVICE CM [place] Z46.1 SETS En[facility] er for fitting and adjustm ent of hearing aid<br/ >with Provide r Comment s: Encount er for Fitting and Adjustm ent of Hearing Aid OFFICE O/P 27819-3.63 BELIA Rhodes 02/04 [facility] EST MOD [id number] is: N IELD 30-39 MIN 98 ICD-10- CM I10 Jeoy al (primar y) hyperte nsion<b r/>with Provide r Comment s: Joey vyas (Primar y) Hyperte nsion Social History Combined list of available smoking, tobacco, and other [facility]. [facility] Response Date Comment Source Type Tobacco smoking [facility] NHIS USED History of VA-TOBACCO NEVER 01/21/2021 [facility] tobacco use USED History of VA-TOBACCO QUIT 11/21/2019 [facility] tobacco use 15 YRS OR MORE History of VA-TOBACCO NEVER 08/14/2018 [facility] History of QUIT TOBACCO USE 06/15/2017 Stopped smoking [facility] tobacco use > 7 YEARS AGO cigarettes [place] approximatley 20 years ago. History of QUIT TOBACCO USE 02/03/2016 [facility] tobacco use > 7 YEARS AGO [place] History of LIFETIME 01/05/2011 [facility] tobacco use [facility] History of CURRENT SMOKER 08/01/2000 10-15 CIGS/DAY [facility] Plan of Care List of future care activities from Department of Veterans Affairs facilities. Additional future care activities may be listed in the Assessment and Plan section. Date/Time Care Activity Care Activity Detail Facility 10/04/2022 AMBULATORY - MEDICINE AMBULATORY - [facility]INE [facility]
--- OUTSIDE RECORDS SUMMARY | 2022-04-20 17:09 | XMS_ITS | Encounter Summary ---
:1945 Author Organization [facility] Address [address] [place] [id number] Support Name Relationship Address Phone HERMAN HOOKS Unavailable [address] [place] [address] HERMAN HOOKS Unavailable [address] [place] [address] Insurance Providers: All historical and current Section Date Range: From patient's date of to the date document was created.This section includes the names of all active insurance providers for the patient. Insurance Type of Plan Start of End of Group Member Insurance Policy P atient's Provider Coverage Name Policy Policy Number ID Provider's Garrett's Relationship Coverage Coverage Telephone Name to Policy Number Garrett BCBS [place] PREFERRED BASIC May 08 [id number] [phone] JESSEE, SONG SPOUSE FEP PROVIDER SELF 2017 [id number] ICE ORGANIZAT PLUS ION (PPO) ONE BCBS OF PREFERRED STAND May 07 [id number] [phone] JESSEE, SONG SPOUSE MASS FEP PROVIDER ANABELA 2006 [id number] ICE ORGANIZAT FAMIL ION (PPO) Y CAREMARK PRESCRIPT CAREM Jul 31 [id number] [phone] BANK S,SONG SPOUSE FEP BCBS ION ARK 2010 0 [id number] 1 ICE FEPRX PLAN CAREMARK-F PRESCRIPT FEP May 02 [id number] [phone] BA NKS,SONG SPOUSE EP BCBS ION CAREM 2010 0 [id number] 1 ICE ARK MEDICARE MEDICARE PART Jun 30, PART A [id number] [phone] ERON HOOKS PATIENT (WNR) (M) A 2012 [id number] NARD MEDICARE MEDICARE PART Jun 30, PART B [id number] [phone] ERON HOOKS PATIENT (WNR) (M) B 2012 [id number] NARD Selected Encounter This section includes the information on record at MD for the Encounter. Date/Time Encounter Type Encounter Reason Provider Source Description Feb 04, 2022 OFFICE O/P EST PRIMARY ICD-10-CM I10 LYNDON MEDELLIN 10:00 AM MOD 30-39 MIN CARE/MEDICINE Essential (primary) hypertension with Provider Comments: Essential (Primary) Hypertension IHE Encounter Template Text not used by [facility] Assessments - Encounter Diagnoses This section includes the primary and secondary diagnoses documented for the Encounter. Date/Time Primary/Secondary Diagnosis Name Provider Source Diagnosis Feb 17, 2022 PRIMARY Essential (primary) LYNDON MEDELLIN LILIAND 03:18 PM hypertension Feb 17, 2022 SECONDARY Encounter for LYNDON MEDELLIN 03:18 PM immunization Feb 17, 2022 SECONDARY Hepatic fibrosis, LYNDON MEDELLIN D 03:18 PM unspecified Lab Results: +/- 30 days of the encounter This section includes the Chemistry and Hematology Lab Results on record with MD for the patient. Radiology Reports and Pathology Reports are provided separately, in subsequent sections.Lab Results This section contains the Chemistry/Hematology Results that were resulted 30 days before or 30 daysafter the date of the Encounter. Date/Time Source Result Type Result - Unit Interpretation Reference Range Comment Jan 28, 2022 07:32 AM [facility] URIC ACID Specimen Type: SERUM No comment enter ed. Ordering Provid er: LYNDON MEDELLIN Report Released Date/Time: Aug 21, 2021 09:25 AM Reporting Lab: [facility] [address] [address] Performing Lab: [facility] [address] [address] URIC ACID 6.4 3.5-7.2 Jan 28, 2022 07:32 AM [facility] LIPID PANEL FASTING Speci men Type: SERUM No comment enter ed. Ordering Provid er: LYNDON MEDELLIN Report Released Date/Time: Aug 21, 2021 09:25 AM Reporting Lab: [facility] [address] [address] Performing Lab: [address] [address] CHOLESTEROL 137 <7-199 TRIGLYCERIDE 109 0-150 LDL calculated 71 0-129 CHOL/HDL 3.1 HDL CHOLESTEROL 44 40-60 Jan 28, 2022 07:32 AM [facility] CBC Specimen Type: BLOOD No comment enter ed. Ordering Provid er: LYNDON MEDELLIN Report Released Date/Time: Aug 21, 2021 09:25 AM Reporting Lab: [facility] [address] [address] Performing Lab: [facility] [address] [address] WBC 8.20 4.50-11.00 RBC 4.47 4.23-5.66 HGB 14.6 12.8-17 HCT 41.6 39.2-50.4 MCV 93.1 82-99 MCHC 35.1 30.8-35.1 PLT 181 140-360 RDW-CV 11.5 L 12.0-16.0 MCH 32.7 H 26.2-32.6 Jan 28, 2022 07:32 AM [facility] URINALYSIS Specimen Type: URINE No comment enter ed. Ordering Provid er: LYNDON MEDELLIN Report Released Date/Time: Aug 21, 2021 09:25 AM Reporting Lab: [facility] [address] [facility] [address] Performing Lab: [facility] [address] [address] UA COLOR Yellow Yellow UA APPEARANCE Clear Clear UA GLUCOSE Negative Negative UA KETONES Negative Neg UA BLOOD Negative Neg UA PROTEIN Negative Neg UA NITRITE Negative Neg UA BILIRUBIN Negative Neg UA SPECIFIC GRAVITY 1.012 L 1.016-1.02 2 UA pH 8.0 5.0-9.0 UA UROBILINOGEN <2.0 <2.0 UA LEUKOCYTE ESTERASE Negative Neg Jan 28, 2022 07:32 AM [place] LIVER FUNCTION Specimen Type: SERUM No comment enter ed. Ordering Provid er: LYNDON MEDELLIN Report Released Date/Time: Aug 21, 2021 09:25 AM Reporting Lab: [facility] [address] [address] Performing Lab: [address] [address] PROTEIN,TOTAL 7.4 6.0-8.3 ALBUMIN 4.2 3.5-5.0 ALKALINE PHOSPHATASE 74 40-150 AST 19 5-34 ALT 20 <6-55 BILIRUBIN, TOTAL 1.7 H 0.2-1.2 Jan 28, 2022 07:32 AM [facility] CALCIUM Specimen Type: SERUM No comment enter ed. Ordering Provid er: LYNDON MEDELLIN Report Released Date/Time: Aug 21, 2021 09:25 AM Reporting Lab: [facility] [place] [facility] [address] [address] Performing Lab: [facility] [place] [facility] [address] [address] CALCIUM 9.6 8.5-10.2 Jan 28, 2022 07:32 AM [facility] TSH Specimen Type: SERUM No comment enter ed. Ordering Provid er: LYNDON MEDELLIN Report Released Date/Time: Aug 21, 2021 09:25 AM Reporting Lab: [facility] [place] [facility] [address] [address] Performing Lab: [facility] [place] [facility] [address] [address] TSH 1.48 0.35-5.00 Jan 28, 2022 07:32 AM [facility] BASIC METABOLIC PANEL Spe cimen Type: SERUM (fasting) No comment enter ed. Ordering Provid er: LYNDON MEDELLIN Report Released Date/Time: Aug 21, 2021 09:25 AM Reporting Lab: [facility] [place] [facility] [address] [address] Performing Lab: [facility] [place] [facility] [address] [address] UREA NITROGEN 12 7-25 GLUCOSE 97 65-100 SODIUM 135 135-145 POTASSIUM 4.3 3.5-5.0 CHLORIDE 97 L 100-110 CO2 27 20-30 CREATININE, Serum 1.10 0.50-1.40 eGFR(CKD-EPI 2020) 70 >60 Jan 28, 2022 07:32 AM [place] VITAMIN D (25-[place]) Specime n Type: SERUM No comment enter ed. Ordering Provid er: LYNDON MEDELLIN Report Released Date/Time: Aug 21, 2021 09:25 AM Reporting Lab: [facility] [place] [facility] [address] [address] Performing Lab: [facility] [place] [facility] [address] [facility] [address] VITAMIN D (25-[place]) 45 20-50 Jan 28, 2022 07:32 AM [facility] VITAMIN B12 Specimen Type: SERUM No comment enter ed. Ordering Provid er: LYNDON MEDELLIN Report Released Date/Time: Aug 21, 2021 09:25 AM Reporting Lab: [facility] [place] [facility] [address] [address] Performing Lab: [facility] [place] [facility] [address] [address] VITAMIN B12 335 200-900 Jan 28, 2022 07:32 AM [facility] FERRITIN Specimen Type: SERUM No comment enter ed. Ordering Provid er: LYNDON MEDELLIN Report Released Date/Time: Aug 21, 2021 09:25 AM Reporting Lab: [facility] [place] [facility] [address] [address] Performing Lab: [facility] [place] [facility] [address] [facility] [address] FERRITIN 322.5 H 20-300 Jan 28, 2022 07:32 AM [facility] BILIRUBIN, DIRECT Specime n Type: SERUM No comment enter ed. Ordering Provid er: LYNDON MEDELLIN Report Released Date/Time: Aug 21, 2021 09:25 AM Reporting Lab: [facility] [place] [facility] [address] [address] Performing Lab: [facility] [place] [facility] [address] [address] BILIRUBIN, DIRECT 0.6 H 0-0.5 Vital Signs: All taken on the encounter date This section contains inpatient and outpatient Vital Signs collected on the date of the Encounter. Date/Time Temperature Pulse Blood Respiratory SP02 Pain Height Weight Gonzalez dy Source Pressure Rate Mass Index Feb 04, 130/78 2021 10:25 mm[Hg] IELD AM Feb 04, 97.4 F 82 149/84 18 /min 98 % 69 in 182 lb 27 2021 10:20 /min mm[Hg] IELD AM Immunizations: All administered on the encounter date This section contains immunizations associated to the Encounter. Immunization Series Date Issued Reaction Comments INFLUENZA, INJECTABLE, QUADRIVALENT, Feb 04, 2022 PRESERVATIVE FREE Social History: Smoking Status (Most current) and Tobacco Use (All prior to encounter date) This section includes the most current, and the historical, smoking and tobacco-related health factors from the MD facility where the Encounter took place.Current Smoking Status This section includes the most current smoking, or tobacco-related health factor, from the MD facility where the Encounter took place. Date/Time Current Smoking Status Comment [facility] Feb 04, 2022 10:00 AM VA-TOBACCO NEVER USED [facility] Tobacco Use History This section includes a history of the smoking, or tobacco- related health factors, that were collected on or before the date of the Encounter. The data comes from the [facility] where the Encounter took place. Date/Time Smoking Status/Tobacco Use Comment [facility] Jan 21, 2021 09:00 AM VA-TOBACCO NEVER USED [facility] Nov 21, 2019 11:06 AM VA-TOBACCO FORMER USER [facility] Nov 21, 2019 11:06 AM VA-TOBACCO QUIT 15 YRS OR MORE [facility] Encounter Notes: All associated encounter notes This section contains the clinical notes associated to the Encounter. Date/Time Encounter Note(s) Provider Source Feb 04, 2022 10:14 AM PREVENTIVE MEDICINE NURSING NOTE: DELON GALLOWAY [facility] LOCAL TITLE: CLINICAL REMINDERS/NURSING STANDARD TITLE: PREVENTIVE MEDICINE NURSING NOTE DATE OF NOTE: FEB 04, 2022@10:14 ENTRY DATE: FEB 04, 2022@10:14:13 AUTHOR: DELON ULGO EXP COSIGNER: URGENCY: STATUS: COMPLETED Influenza Immunization: The patient was given the influenza VIS which l ists the benefits and side effects of the vaccine and which reviews the ri sks of not receiving the flu vaccine. The VIS was reviewed with the patient and they were given an opportunity to ask questions. The patient was p rovided education on how to decrease the risk of influenza infection inc luding social distancing and use of good hand hygiene. The patient denied an y prior severe reaction to the flu vaccine or its components. The patient gave verbal consent to receive the vaccine. The seasonal influenza vaccine VIS given to the patient: VIS version date Nov. The patient received seasonal influenza vaccine today - Influenza, Quadrivalent preservative free (Afluria) 0.5 ml IM today in Right Deltoid. 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 Td / Tdap Immunization: Prior Td vaccination The patient has been vaccinated in the past but written documentation of vaccination is not available today. COVID-19 Immunization Booster: Refused COVID-19 booster Reason: will get out in community // DELON LUGO LPN LICENSED PRACTICAL NURSE Signed: 02/04/2022 10:20 Feb 04, 2022 10:07 AM PHYSICIAN SALES ENABLEMENT SPECIALIST NOTE: LYNDON MEDELLIN LOCAL TITLE: [place] NOTE STANDARD TITLE: PHYSICIAN SALES ENABLEMENT SPECIALIST NOTE DATE OF NOTE: FEB 04, 2022@10:07 ENTRY DATE: FEB 04, 2022@10:07:05 AUTHOR: LYNDON MEDELLIN EXP COSIGNER: URGENCY: STATUS: COMPLETED S - CC: check bp check lipids check sugar HPI: bp controlled lipids controlled sugar controlled ROS: constitutional sx? fever? no rigor? no night sweat? no atypical fatigue? no new or persistent cough? no unintentional, unexplained wt loss? no change; loss appetite? no nausea/vomiting? no easy bruising? no excessive bleeding? no new swelling ; i.e., generalized or localized lymphadenopathy? no denies almeida, tia sx denies ch pn, sob denies melena denies uts O - coop A&Ox3 NAD W-N/H/D HEENT: benign NECK: is supple mobile no bruits NT, no adeno LYMPH: head - no neck - no LUNGS: Resp full reg unlabored; CTA B/L COR: RRR, no M ABD: no bruits soft, NT no mass no hepato-spleno megaly RECTAL: defer EXT: no LLE no calf tenderness LABS: reviewed, discussed w/ pt RADS: reviewed, discussed w/ pt A/P - 1) Normoglycemic 2) HTN - BP 130/78 3) Kidney Function Intact - eGFR 70 and Creat 1 .0 in JAN 21; K 4.3 - cont Cozaar - cont HCTZ - diet: *DASH (Dietary Approach Stop HTN) *Na Consumption: about one teaspoon a day (arou nd 2,300 MG) is OK - wt and aerobic exercise 4) C/V Stable - never [place] 5) Neuro Stable - never CVA/TIA 6) On Anti-Coagulation? 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 no H/H - 14.6 / 41.6 10) UA - Heme? no 11) Fall Risk - no 12) Urinary Incontinence - no 13) Health Maintenance - cont the great job you are doing; no more i jennifer RTC OCTOBER 22; fast labs few days before MEDS: All Meds Reconciled, Discussed, Review ed with Patient; Patient Appraised of Any Changes, e.g., Dosi ng, Additions to Current Regimens, or Discontinuance of Any Medi cations; Meds Received from Doctors in Private Sector Reconciled in Similar Fashion as Well; Patient Verbalizs Understanding of All the A jacquelyn; Meds List Printed for Patient's Benefit, Unl ess Not Deemed Necessary PROBLEM LIST: Reviewed and Updated as is Releva nt to Today's Visit Suicide Screen: C-SSRS Screening [place]-Suicide Severity Rating Scale (C-SSRS Screener) 1. Over the past month, have you wished you wer e or wished you could go to sleep and not wake up? No 2. Over the past month, have you had any actual thoughts of killing yourself? No 3. Over the past month, have you been thinking about how you might do this? Response not required due to responses to other questions. 4. Over the past month, have you had these thou ghts and had some intention of acting on them? Response not required due to responses to other questions. 5. Over the past month, have you started to wor k out or worked out the details of how to kill yourself? Response not required due to responses to other questions. 6. If yes, at any time in the past month did yo u intend to carry out this plan? Response not required due to responses to other questions. 7. In your lifetime, have you ever done anythin g, started to do anything, or prepared to do anything to end you r life (for example, collected pills, obtained a gun, gave away valu megan, went to the roof but didn't jump)? No 8. If YES, was this within the past 3 months? Response not required due to responses to other questions. Depression Screening: Perform PHQ-2 A PHQ-2 screen was performed. The score was 0 w hich is a negative screen for depression. Over the past two weeks, how often have you bee n bothered by the following problems? 1. Little interest or pleasure in doing things Not at all 2. Feeling down, depressed, or hopeless Not at all Relationship Health & Safety Screen: Environment is safe to proceed INFORMED CONSENT TO SCREEN & DOCUMENT: Individual consents to documentation? Yes Individual consents to proceed with screening? Yes PRIMARY SCREEN: In the past 12 months, how often did a current or former intimate partner (e.g., boyfriend, girlfriend, , , se xual partner): Scream or curse at you: Never Insult or talk down to you: Never Threaten you with harm: Never Physically hurt you: Never In the past 12 months, how often did a current or former intimate partner force or pressure you to have sexual co ntact against your will, or when you were unable to say no? Never PRIMARY SCREEN RESULTS: The individual denied all forms of IPV above (i .e., answered never to all 5 items above). no Tobacco Use Screening: The patient has never used tobacco. Medication Reconciliation: Outpatient: Has the patient been taking medications as docu mented in the EMLR? YES: The patient has been taking medications as documented in the EMLR. Essential Medication List for Review used to co mplete this medication reconciliation. INCLUDED IN THIS LIST: Alphabetical list of act yadira outpatient prescriptions dispensed from this [facility] (local) an d dispensed from another VA or DoD facility (remote) as well as inpatien t orders (local, pending and active), local clinic medications, locally documented non-VA medications, and local prescriptions that have or been discontinued in the past 90 days. - All changes in medications, including all non -VA/Herbal/OTC medications were entered into CPRS. Changes: noter - If there were any medications the patient hermes uld no longer take, they were discontinued. - The patient/caregiver was instructed to updat e this list, discard old lists, and take this list to the next appointme nt, whether with a VA or non-VA provider. Alcohol Use Screen (AUDIT-C): Alcohol Screen: quit entirely Sexual Orientation: The patient thinks of their sexual orientation as: Straight or Heterosexual /es/ LYNDON MEDELLIN PA-C STAFF PHYSICIAN SALES ENABLEMENT SPECIALIST Signed: 02/04/2022 10:40
--- OUTSIDE RECORDS SUMMARY | 2022-04-20 17:09 | XMS_ITS ---
:1945 Author Organization [facility] rs Address [address] [place] [address] Support Name Relationship Address Phone HERMAN HOOKS Unavailable [address] [place] [address] HERMAN HOOKS Unavailable [address] [phone] [place] [address] Insurance Providers: All historical and current Section [...] Garrett BCBS MA PREFERRED BASIC May 08 [id number] [phone] JESSEE, SONG SPOUSE FEP PROVIDER SELF 2017 85 [id number] ICE ORGANIZAT PLUS ION (PPO) ONE BCBS OF PREFERRED STAND May 07 [id number] [phone] JESSEE, SONG SPOUSE MASS FEP PROVIDER ANABELA 2006 85 6 ICE ORGANIZAT FAMIL ION (PPO) Y CAREMARK PRESCRIPT CAREM Jul 31 [id number] [phone] BANK S,SONG SPOUSE FEP BCBS ION ARK 2010 0 85 1 ICE FEPRX PLAN CAREMARK-F PRESCRIPT FEP May [id number] [phone] BA NKS,SONG SPOUSE EP BCBS ION CAREM 2010 0 85 1 ICE ARK MEDICARE MEDICARE PART Jun 30, PART A [id number] [phone] ERON HOOKS PATIENT (WNR) (M) A 2012 [id number] NARD MEDICARE MEDICARE PART Jun 30, PART B [id number] [phone] ERON HOOKS PATIENT (WNR) (M) B 2012 [id number] NARD Selected Encounter This section includes the information on record at [place] for the Encounter. Date/Time Encounter Type Encounter Reason Provider Source Description Jan 25, 2022 [facility]TER[place] FOR AUDIOLOGY ICD-10-CM Z46.1 CRAMELITA LANGSTON 09:00 AM HEARING DEVICE Encounter for E fitting and adjustment of hearing aid with Provider Comments: Encounter for Fitting and Adjustment of Hearing Aid IHE Encounter Template Text not used by [facility] Assessments - Encounter Diagnoses This section includes the primary and secondary diagnoses documented for the Encounter. Date/Time Primary/Secondary Diagnosis Name Provider Source Diagnosis Jan 25, 2022 PRIMARY Encounter for COLBY BAKER [place] [facility] 09:38 AM fitting and [facility] adjustment of hearing aid Jan 25, 2022 SECONDARY Sensorineural COLBY BAKER [place] [facility] 09:38 AM hearing loss, [facility] [place] [facility] bilateral Plan of Treatment: Future Appointments (+ 6 months) and Future Tests (+/- 45 days) The Plan of Treatment section includes future care activities for the patient from all [place] treatmentfacilities. This section includes future appointments and future orders which are active, pending orscheduled.Future Appointments This section includes appointments that were scheduled to occur 6 months from the date of the Encounter, up to a maximum of 20 appointments. The data comes from all [place] treatment facilities. Appointment Date/Time Appointment Type Appointment Facili ty Name Feb 04, 2022 10:00 AM AMBULATORY - MEDICINE [place] Lab Results: +/- 30 days of the encounter This section includes the Chemistry and Hematology Lab Results on record with [place] for the patient. Radiology Reports and Pathology Reports are provided separately, in subsequent sections.Lab Results This section contains the Chemistry/Hematology Results that were resulted 30 days before or 30 daysafter the date of the Encounter. Date/Time Source Result Type Result - Unit Interpretation Reference Range Comment Jan 28, 2022 07:32 AM [place] URIC ACID Specimen Type: SERUM No comment enter ed. Ordering Provid er: LYNDON MEDELLIN Report Released Date/Time: Aug 21, 2021 09:25 AM Reporting Lab: [facility] [address] [address] Performing Lab: [facility] [address] [address] URIC ACID 6.4 3.5-7.2 Jan 28, 2022 07:32 AM [place] LIPID PANEL FASTING Speci men Type: SERUM No comment enter ed. Ordering Provid er: LYNDON MEDELLIN Report Released Date/Time: Aug 21, 2021 09:25 AM Reporting Lab: [facility] [address] [address] Performing Lab: [facility] [address] [address] CHOLESTEROL 137 <7-199 TRIGLYCERIDE 109 0-150 LDL calculated 71 0-129 CHOL/HDL 3.1 HDL CHOLESTEROL 44 40-60 Jan 28, 2022 07:32 AM [place] CBC Specimen Type: BLOOD No comment enter ed. Ordering Provid er: LYNDON MEDELLIN Report Released Date/Time: Aug 21, 2021 09:25 AM Reporting Lab: [facility] [address] [address] Performing Lab: [facility] [address] [address] WBC 8.20 4.50-11.00 RBC 4.47 4.23-5.66 HGB 14.6 12.8-17 HCT 41.6 39.2-50.4 MCV 93.1 82-99 MCHC 35.1 30.8-35.1 PLT 181 140-360 RDW-CV 11.5 L 12.0-16.0 MCH 32.7 H 26.2-32.6 Jan 28, 2022 07:32 AM [place] LIVER FUNCTION Specimen Type: SERUM No comment enter ed. Ordering Provid er: LYNDON MEDELLIN Report Released Date/Time: Aug 21, 2021 09:25 AM Reporting Lab: [facility] [address] [address] Performing Lab: [address] [address] PROTEIN,TOTAL 7.4 6.0-8.3 ALBUMIN 4.2 3.5-5.0 ALKALINE PHOSPHATASE 74 40-150 AST 19 5-34 ALT 20 <6-55 BILIRUBIN, TOTAL 1.7 H 0.2-1.2 Jan 28, 2022 07:32 AM [place] URINALYSIS Specimen Type: URINE No comment enter ed. Ordering Provid er: LYNDON MEDELLIN Report Released Date/Time: Aug 21, 2021 09:25 AM Reporting [facility] [place] [facility] [address] [address] Performing [facility]: [facility] [place] [facility] [address] [address] UA COLOR Yellow Yellow UA APPEARANCE Clear Clear UA GLUCOSE Negative Negative UA KETONES Negative Neg UA BLOOD Negative Neg UA PROTEIN Negative Neg UA NITRITE Negative Neg UA BILIRUBIN Negative Neg UA SPECIFIC GRAVITY 1.012 L 1.016-1.02 2 UA pH 8.0 5.0-9.0 UA UROBILINOGEN <2.0 <2.0 UA LEUKOCYTE ESTERASE Negative Neg Jan 28, 2022 07:32 AM [place] CALCIUM Specimen Type: SERUM No comment enter ed. Ordering Provid er: LYNDON MEDELLIN Report Released Date/Time: Aug 21, 2021 09:25 AM Reporting [facility] [address] [address] Performing [facility]: [facility] [address] [address] CALCIUM 9.6 8.5-10.2 Jan 28, 2022 07:32 AM [place] TSH Specimen Type: SERUM No comment enter ed. Ordering Provid er: LYNDON MEDELLIN Report Released Date/Time: Aug 21, 2021 09:25 AM Reporting Lab[facility] [place] [facility] [address] [address] Performing [facility]: [facility] [address] [address] TSH 1.48 0.35-5.00 Jan 28, 2022 07:32 AM [place] BASIC METABOLIC PANEL Spe cimen Type: SERUM (fasting) No comment enter ed. Ordering Provid er: LYNDON MEDELLIN Report Released Date/Time: Aug 21, 2021 09:25 AM Reporting Lab[facility] [address] [address] Performing [facility]: [facility] [address] [address] UREA NITROGEN 12 7-25 GLUCOSE 97 65-100 SODIUM 135 135-145 POTASSIUM 4.3 3.5-5.0 CHLORIDE 97 L 100-110 CO2 27 20-30 CREATININE, Serum 1.10 0.50-1.40 eGFR(CKD-EPI 2020) 70 >60 Jan 28, 2022 07:32 AM [place] VITAMIN B12 Specimen Type: SERUM No comment enter ed. Ordering Provid er: LYNDON MEDELLIN Report Released Date/Time: Aug 21, 2021 09:25 AM Reporting Lab: [facility] [address] [address] Performing Lab: [place] [facility] [place] [facility] [address] [address] VITAMIN B12 335 200-900 Jan 28, 2022 07:32 AM [place] VITAMIN D (25-[place]) Specime n Type: SERUM No comment enter ed. Ordering Provid er: LYNDON MEDELLIN Report Released Date/Time: Aug 21, 2021 09:25 AM Reporting Lab: [facility] [address] [address] Performing Lab: [place] [facility] [place] [facility] [address] [address] VITAMIN D (25-[place]) 45 20-50 Jan 28, 2022 07:32 AM [place] FERRITIN Specimen Type: SERUM No comment enter ed. Ordering Provid er: LYNDON MEDELLIN Report Released Date/Time: Aug 21, 2021 09:25 AM Reporting Lab: [facility] [address] [address] Performing Lab: [facility] [address] [address] FERRITIN 322.5 H 20-300 Jan 28, 2022 07:32 AM [place] BILIRUBIN, DIRECT Specime n Type: SERUM No comment enter ed. Ordering Provid er: LYNDON MEDELLIN Report Released Date/Time: Aug 21, 2021 09:25 AM Reporting Lab: [place] [facility] [place] [facility] [address] [address] Performing Lab: [place] [facility] [address] [address] BILIRUBIN, DIRECT 0.6 H 0-0.5 Social History: Smoking Status (Most current) and Tobacco Use (All prior to encounter date) This section includes the most current, and the historical, smoking and tobacco-related health factors from the [place] facility where the Encounter took place.Current Smoking Status This section includes the most current smoking, or tobacco-related health factor, from the [place] facility where the Encounter took place. Date/Time Current Smoking Status Comment Facility Aug 14, 2018 10:27 AM VA-TOBACCO NEVER USED [place] C [facility] Tobacco Use History This section includes a history of the smoking, or tobacco- related health factors, that were collected on or before the date of the Encounter. The data comes from the [place] facility where the Encounter took place. Date/Time Smoking Status/Tobacco Comment Facility Use Jun 15, 2017 08:59 QUIT TOBACCO USE > 7 [place] [facility] AM YEARS AGO Stopped smoking cigarettes appro ximatley 20 years ago. [facility] Feb 03, 2016 09:05 QUIT TOBACCO USE > 7 [place] [facility] AM YEARS AGO [facility] Jan 05, 2011 10:55 LIFETIME NON-TOBACCO [place] [facility] AM USER [facility] Aug 01, 2000 01:55 CURRENT SMOKER [place] [facility] N PM 10-15 CIGS/DAY [facility] Encounter Notes: All associated encounter notes This section contains the clinical notes associated to the Encounter. Date/Time Encounter Note(s) Provider Source Jan 25, 2022 06:39 AM AUDIOLOGY NOTE: COLBY BAKER [place] [facility] LOCAL TITLE: AUDIOLOGY [facility] STANDARD TITLE: AUDIOLOGY NOTE DATE OF NOTE: JAN 25, 2022@06:39 ENTRY DATE: JAN 25, 2022@06:39:48 AUTHOR: COLBY BAKER EXP COSIGNER: Jamilah LANGSTON URGENCY: STATUS: COMPLETED Evans was seen today, January 25, 2022 for h earing aid problems/maintenance. SENSORINEURAL HEARING LOSS, BILATERAL Hearing Aid(s): Miguelito CARMONA CIC ITEs Date Issued: 06/18/2020 requested: [X]Hearing aid is not working- LEFT [X]Hearing aid maintenance Action Taken: Initial inspection reveale d 2 wax guards were inserted into the left supervisory clerk tubing. [X]Cleaned and checked hearing aids [X]Cleaned receivers [X]Replaced microphone covers [X]Replaced wax guards [X]Replaced batteries Bilateral sound check was positive. Otoscopy: Completely occluding cerumen present, JOSE MARTIN [X] will request to have cerumen removal at his upcoming Primary Care appointment on 02/04/22. He c onfirmed to have Debrox ear wax softening drops and will use them for 1 week daily before his physic al. Plan: [X]Evans to call jovanna /mercy/ COLBY BAKER AUDIOLOGY HEALTH SCREW DOWN Signed: 01/25/2022 09:38 /mercy/ Dexter MANCIA, [facility]-A STAFF MANAGER OF PROGRAM Cosigned: 01/25/2022 09:49
--- OUTSIDE RECORDS SUMMARY | 2022-04-20 17:09 | XMS_ITS | Encounter Summary ---
:1945 Author Organization [facility] rs Address [address] [place] [address] Support Name Relationship Address Phone HERMAN HOOKS Unavailable [address] [phone] [place] [address] HERMAN HOOKS Unavailable [address] [place] [address] Insurance Providers: All historical and current Section [...] Garrett BCBS MA PREFERRED BASIC May 08 [id number] [phone] JESSEE, SONG SPOUSE FEP PROVIDER SELF 2017 85 123 ICE ORGANIZAT PLUS ION (PPO) ONE BCBS OF PREFERRED STAND May 07 [id number] [phone] JESSEE, SONG SPOUSE MASS FEP PROVIDER DAREN 2006 85 6 ICE ORGANIZAT FAMIL ION (PPO) Y CAREMARK PRESCRIPT CAREM Jul 31 [id number] BANK S,SONG SPOUSE FEP BCBS ION ARK 2010 0 85 1 ICE FEPRX PLAN CAREMARK-F PRESCRIPT FEP May 02, [id number] [phone] BA NKS,SONG SPOUSE EP BCBS ION CAREM 2010 0 85 1 ICE ARK MEDICARE MEDICARE PART Jun 30, PART A [id number] [phone] ERON HOOKS PATIENT (WNR) (M) A 2012 [id number] NARD MEDICARE MEDICARE PART Jun 30, PART B [id number] [phone] ERON HOOKS PATIENT (WNR) (M) B 2012 [id number] NARD Selected Encounter This section includes the information on record at [place] for the Encounter. Date/Time Encounter Type Encounter Reason Provider Source Description Oct 20, 2021 OFFICE O/P EST PRIMARY ICD-10-CM Z23 PAVAN WAYNE 01:30 PM [address] [facility] CARE/MEDICINE Encounter for HELLE immunization with Provider Comments: Encounter for Immunization IHE Encounter Template Text not used by [facility] Assessments - Encounter Diagnoses This section includes the primary and secondary diagnoses documented for the Encounter. Date/Time Primary/Secondary Diagnosis Name Provider Source Diagnosis Oct 20, 2021 PRIMARY Encounter for DOMINIK WAYNE [place] 02:07 PM immunization TRES Plan of Treatment: Future Appointments (+ 6 months) and Future Tests (+/- 45 days) The Plan of Treatment section includes future care activities for the patient from all [place] treatmentfacilities. This section includes future appointments and future orders which are active, pending orscheduled.Future Appointments This section includes appointments that were scheduled to occur 6 months from the date of the Encounter, up to a maximum of 20 appointments. The data comes from all [place] treatment facilities. Appointment Date/Time Appointment Type Appointment Facili ty Name Jan 25, 2022 09:00 AM AMBULATORY - [place] [facility] [place] [facility] Feb 04, 2022 10:00 AM AMBULATORY - MEDICINE [place] Immunizations: All administered on the encounter date This section contains immunizations associated to the Encounter. Immunization Series Date Issued Reaction Comments COVID-19 (MODERNA), MRNA, 4 Oct 20, 2021 MO D; [id number]; 01/09/2022 LNP-S, PF, 100 MCG/0.5ML DOSE OR 50 MCG/0.25ML DOSE Social History: Smoking Status (Most current) and Tobacco Use (All prior to encounter date) This section includes the most current, and the historical, smoking and tobacco-related health factors from the [place] facility where the Encounter took place.Current Smoking Status This section includes the most current smoking, or tobacco-related health factor, from the [facility] facility where the Encounter took place. Date/Time Current Smoking Status Comment Facility Jan 21, 2021 09:00 AM VA-TOBACCO NEVER USED [facility] Tobacco Use History This section includes a history of the smoking, or tobacco- related health factors, that were collected on or before the date of the Encounter. The data comes from the [place] facility where the Encounter took place. Date/Time Smoking Status/Tobacco Use Comment Facil ity Nov 21, 2019 11:06 AM VA-TOBACCO FORMER USER [facility] Nov 21, 2019 11:06 AM VA-TOBACCO QUIT 15 YRS OR MORE [place] Radiology Reports: +/- 30 days of the encounter Radiology Reports For cases when an order for radiology services may have been completed prior to the date of the Encounter, the report list includes the Radiology Reports that were completed up to 30 days before date of the Encounter. For cases when an order for radiology services may have been completed after the date of the Encounter, the report list also includes the Radiology Reports that were completed up to 30days after date of the Encounter. The data comes from all [place] treatment facilities. Date/Time Radiology Report Provider Source September 24, 2021 08:23 AM ABDOMINAL ULTRASOUND: LYNDON STOLL [place] Jamilah NTR[facility] W[facility]N SAFIA HOOKS [id number] -1945 [facility] Ex Date: SEPTEMBER 24, 2021@08:23 Req Phys: LYNDON MEDELLIN Loc: CWM/SO/PACT 3 WH (Req'g Loc) Img Loc: ULTRASOUND Service: Unknown (Case 157 COMPLETE) ULTRASOUND ABDOMEN (US Detai led) CPT:66383 Reason for Study: h/o esophageal varices (Case 158 COMPLETE) ULTRASOUND BLADDER (US Detai led) CPT:47893 (Case 159 COMPLETE) ULTRASOUND ELASTOGRAPHY PARE NCHYM(US Detailed) CPT:96339 (Case 160 COMPLETE) ULTRASOUND DOPPLER (US Detai led) CPT:53303 Clinical History: lft's normal a reminder for liver cancer screening pops up on cprs Report Status: Verified Date Reported: SEPTEMBER 24, 2021 Date Verified: SEPTEMBER 24, 2021 Geothermal Hvac Technician E-Sig:/ES/Lyndon Stoll MD Report: EXAM: ULTRASOUND ABDOMEN, LIMITED DOPPLER DUPLE X. Ultrasound pelvis. COMPARISON: 01/24/2012. HISTORY: Esophageal vari raúl, hematuria. TECHNIQUE:Transabdominal ultrasound, 2-D, High- resolution static grayscale & Color Doppler and spectral w aveform analysis. Imaging in orthogonal planes. Shear-wave elastography (SWE) was performed. Li lis stiffness measurements were obtained on a Yeh deborah e following the Society of Radiology of Ultrasound (SRU) guidel adi.* 10 measurements were obtained using a 2D-SWE metho d. FINDINGS: Mildly echogenic liver parenchyma. Ri ght hepatic lobe 1 cm cyst was seen but no suspicious hepatic lesi on. Normal portal vein flow direction. Normal gallbladder. Normal CBD diameter is 3.9 mm. Pancreas, as seen, was normal. Normal s ize spleen, measuring 9.2 cm. Normal caliber abdominal aort a. The left kidney measured 9.7 cm. The right kidney measured 10 c m. No hydronephrosis. Urinary bladder prevoid volume of 250 mL. Urina ry post void bladder volume of 82 mL. The bilateral ureteral jets are noted. No bladder masses or calculi seen. The prostate volume was calculated at 34 mL, mildly enlarged with paren chymal calcifications. ULTRASOUND LIVER ELASTOGRAPHY: Liver stiffness values: Stiffness median 1.42 m/s. Liver EQI IQR/Med Yang 17%, les s than 30% indicative of good quality data set. Impression: 1. No suspicious hepatic liver lesion. Small he patic cyst noted. 2. Echogenic liver-hepatic steatosis and/or fib rosis. 3. Median liver stiffness value of 1.42 m/s. In the absen ce of other known clinical signs, rules out compensated advanced chronic liver disease. If there are known clinical signs, may need further testing for confirmation. 4. Mildly enlarged pr ostate. Note: A) Factors that may increase liver stiffness in clude elevated liver function tests, non-fasting state, vascul ar congestion, acute hepatitis, infiltrative liver diseases, a nd intense physical exercise. In this setting, the stage o f liver fibrosis may be overestimated. However, in all these con ditions, stiffness values within the normal range exclude signific ant liver fibrosis. B) In some patients with NAFLD, the cutoff valu es for cACLD may be lower (7-9 kPa). C) In etiologies other than viral hepatitis and NAFLD, inclusive of but not limited to alcoholic hepatitis, prim ghazal biliary cirrhosis, autoimmune hepatitis, sclerosing cho langitis and drug-induced liver diseases, the cutoff values are not well established. D) In patients with chronic viral hepatitis B o r hepatitis C that are successfully treated, the baseline liver st iffness should be that obtained after viral eradication or suppre ssion. E) The percentage change in liver stiffness ove r time, and not absolute values, should be used. On follow-up s tudies to evaluate for efficacy of treatment or progression of dis ease, a 10% difference in liver stiffness should be conside red clinically significant. * Update to the Society of Radiologists in Ultr asound Liver Elastography Consensus Statement. Radiology 202 0; 296:263-274. SRU Recommendations for interpretations of Live r Stiffness Values Obtained Using ARFI Techniques in Patients with Viral Hepatitis and NAFLD Liver Stiffness Value.....Recommendation <=5kPa (1.3 m/s).........High probability of be ing normal < 9kPa (1.7 m/s)..........In the absence of oth er known clinical signs, rules out cACLD. If there are known clin ical signs, may need further testing for confirmation. 9 kPa-13 kPa (1.7 to 2.1 m/s) ...Suggestive of cACLD but need further testing for confirmation. > 13 kPa (2.1 m/s) Likely confirming cACLD. > 17 kPa (2.4 m/s) Suggestive of CSPH. ARFI = acoustic radiation force impulse cACLD = (compensated) advanced chronic liver disease, CSPH = clinical ly significant portal hypertension NAFLD = non-alcoholic fatty liver disease Primary Diagnostic Code: No immediate attention required Primary Interpreting Staff: Lyndon Stoll MD, Chief of Imaging (Geothermal Hvac Technician ) /[facility] Encounter Notes: All associated encounter notes This section contains the clinical notes associated to the Encounter. Date/Time Encounter Note(s) Provider Source Oct 20, 2021 02:06 PM PREVENTIVE MEDICINE NURSING NOTE: OLGA JEWELL LOCAL TITLE: CLINICAL REMINDERS/NURSING STANDARD TITLE: PREVENTIVE MEDICINE NURSING NOTE DATE OF NOTE: OCT 20, 2021@14:06 ENTRY DATE: OCT 20, 2021@14:06:11 AUTHOR: OLGA WAYNE EXP COSIGNER: URGENCY: STATUS: COMPLETED COVID-19 Immunization: The patient was given the vaccine information f act sheet for this vaccine which lists the benefits and side effects of th e vaccine and which reviews the risks of the vaccine. The fact sheet was re viewed with the patient and they were given an opportunity to ask questions . The patient denied any prior severe reaction to this vaccine or its co mponents or a severe allergic reaction such as anaphylaxis to any va ccine or to any injectable therapy. The patient gave verbal consent to rec eive the vaccine. Booster Dose (half-dose): The patient received Moderna COVID-19 Vaccine 0 .25 ml IM. Series: Series 4 MVX (Manuf); Lot#; Exp Date: MOD; [id number]; Administration Anatomic site: Right Deltoid Vaccine administered without complications. The patient was advised to remain in the facility for 15 minutes post vacc ination. The patient was given a completed COVID-19 vaccination record c daren, a copy of the [facility] Side Effects and Adverse Events Reporting Fact Sheet and instructed on how to report any adverse reactions. /mercy/ OLGA WAYNE RN REGISTERED NURSE Signed: 10/20/2021 14:07
--- OUTSIDE RECORDS SUMMARY | 2022-04-20 17:10 | XMS_ITS | Encounter Summary ---
:1945 Author Organization [facility] Address [address] [place] [id number] Support Name Relationship Address Phone HERMAN HOOKS Unavailable [address] [place] [address] HERMAN HOOKS Unavailable [address] [place] [address] Insurance Providers: All historical and current Section [...] Garrett BCBS MA PREFERRED BASIC May 08 [id number] [phone] JESSEE, SONG SPOUSE FEP PROVIDER SELF 2017 85 [id number] ICE ORGANIZAT PLUS ION (PPO) ONE BCBS OF PREFERRED STAND May 07 [id number] [phone] JESSEE, SONG SPOUSE MASS FEP PROVIDER ANABELA 2006 85 6 ICE ORGANIZAT FAMIL ION (PPO) Y CAREMARK PRESCRIPT CAREM Jul 31 [id number] [phone] BANK S,SONG SPOUSE FEP BCBS ION ARK 2010 0 85 1 ICE FEPRX PLAN CAREMARK-F PRESCRIPT FEP May [id number] [phone] BA NKS,SONG SPOUSE EP BCBS ION CAREM 2010 0 85 1 ICE ARK MEDICARE MEDICARE PART Jun 30, PART A [id number] [phone] ERON HOOKS PATIENT (WNR) (M) A 2012 [id number] NARD MEDICARE MEDICARE PART Jun 30, PART B [id number] [phone] ERON HOOKS PATIENT (WNR) (M) B 2012 [id number] NARD Selected Encounter This section includes the information on record at [place] for the Encounter. Date/Time Encounter Type Encounter Description Reason Provider Source September 18, 2021 02:10 Outpatient Encounter HEPATOLOGY CLINIC PM IHE Encounter Template Text not used by [place] Plan of Treatment: Future Appointments (+ 6 months) and Future Tests (+/- 45 days) The Plan of Treatment section includes future care activities for the patient [facility] [place] [facility] This section includes future appointments and future orders which are active, pending orscheduled.Future Appointments This section includes appointments that were scheduled to occur 6 months from the date of the Encounter, up to a maximum of 20 appointments. The data comes from all [place] treatment facilities. Appointment Date/Time Appointment Type Appointment Facili ty Name September 24, 2021 09:00 AM AMBULATORY - NONE [place] [facility] Oct 20, 2021 01:30 PM AMBULATORY - MEDICINE [place] [facility] Jan 25, 2022 09:00 [facility] Feb 04, 2022 10:00 AM AMBULATORY - MEDICINE [place] Social History: Smoking Status (Most current) and Tobacco Use (All prior to encounter date) This section includes the most current, and the historical, smoking and tobacco-related health factors from the [place] facility where the Encounter took place.Current Smoking Status This section includes the most current smoking, or tobacco-related health factor, from the [place] facility where the Encounter took place. Date/Time Current Smoking Status Comment Facility Aug 14, 2018 10:27 AM VA-TOBACCO NEVER USED [facility] Tobacco Use History This section includes a history of the smoking, or tobacco- related health factors, that were collected on or before the date of the Encounter. The data comes from the [place] facility where the Encounter took place. Date/Time Smoking Status/Tobacco Comment Facility Use Jun 15, 2017 08:59 QUIT TOBACCO USE > 7 [place] CNTR[facility] AM YEARS AGO Stopped smoking cigarettes appro ximatley 20 years ago. [facility] Feb 03, 2016 09:05 QUIT TOBACCO USE > 7 [place] CN[facility] AM YEARS AGO [facility] Jan 05, 2011 10:55 LIFETIME NON-TOBACCO [place] [facility] AM USER [facility] Aug 01, 2000 01:55 CURRENT SMOKER [place] [facility] N PM 10-15 CIGS/DAY [facility] Radiology Reports: +/- 30 days of the [...] the Encounter. The data comes from all [place] treatment facilities. Date/Time Radiology Report Provider Source September 24, 2021 08:23 AM ABDOMINAL ULTRASOUND: LYNDON STOLL [facility] NTRL W[facility] SAFIA HOOKS [id number] -1945 [facility] Exm Date: SEPTEMBER 24, 2021@08:23 Req Phys: LYNDON MEDELLIN Loc: CWM/SO/PACT 3 WH (Req'g Loc) Img Loc: ULTRASOUND Service: Unknown (Case [id number] COMPLETE) ULTRASOUND ABDOMEN (US Detai led) CPT:26095 Reason for Study: h/o esophageal varices (Case 158 COMPLETE) ULTRASOUND BLADDER (US Detai led) CPT:39178 (Case 159 COMPLETE) ULTRASOUND ELASTOGRAPHY PARE NCHYM(US Detailed) CPT:84258 (Case 160 COMPLETE) ULTRASOUND DOPPLER (US Detai led) CPT:60869 Clinical History: lft's normal a reminder for liver cancer screening pops up on cprs Report Status: Verified Date Reported: SEPTEMBER 24, 2021 Date Verified: SEPTEMBER 24, 2021 Herb Doctor E-Sig:/ES/Lyndon Stoll MD Report: EXAM: ULTRASOUND ABDOMEN, [...] Staff: Lyndon Stoll MD, Chief of Imaging (Herb Doctor ) /[facility] Encounter Notes: All associated encounter notes This section contains the clinical notes associated to the Encounter. Date/Time Encounter Note(s) Provider Source September 18, 2021 02:10 PM ADMINISTRATIVE NOTE: JANA MORRIS [place] [facility] LOCAL TITLE: ADMINISTRATIVE NOTE [facility] STANDARD TITLE: ADMINISTRATIVE NOTE DATE OF NOTE: SEPTEMBER 18, 2021@14:10 ENTRY DATE: SEPTEMBER 18, 2021@14:10:16 AUTHOR: JANA MORRIS EXP COSIGNER: URGENCY: STATUS: COMPLETED Advanced Liver Disease Liver RN Chart Review: Reason for review: This patient SAFIA HOOKS has been flagged by denice [facility] Advanced Liver Disease (ALD) Dashboard by either lab values indicative of ALD or by diagnosis placed in CPRS by a [place] provider. This patient ma y be at increased risk for Hepatocellular Carcinoma (HCC). Per AASLD guidelines, patients should be screene d for HCC every 6 months with lab work and liver imaging. [place] quidelines that c an be found at: https://www.hepatitis.va.gov/provider/guidelines /cirrhosis-quicknotes.asp Per chart review this author is unable t o locate documentation of screening in patient records, to include non-VA records avail able. Additional information at a glance: FIB-4= 3.13 https://www.hepatitisc..edu/page/clinical-calc ulators/fib-4 Interpretation: Using a lower cutoff value of 1.45, a FIB-4 scor e <1.45 had a negative predictive value of 90% for advanced fibrosis (I noy fibrosis score 4-6 which includes early bridging fibr osis to cirrhosis). In contrast, a FIB-4 >3.25 would have a 97% specificity and a positive predictive value of 65% for advanced fibrosis. In the patient cohort in which this fo rmula was first validated, at least 70% patients had values <1.45 or >3.25. Leslie hamilton argued that these individuals could potentiall y have avoided liver biopsy with an overall accuracy of 86%. IMAGING= Type/Date: Ultrasound vs. CT Scan vs. MRI Results: ??2011 u/a apt upcoming 09/24 LABS= Platelets (140-360): 145 Liver Enzymes AST /ALT (20-30): Liver Function T ests Collection DT Spec AST ALT ALK ELVIRA ALBUMIN T VICTOR MANUEL I T. PROT 08/19/2021 07:38 SERUM 33 29 85 4.3 1.4 H 7.5 Albumin (liver protein) (>4.0): ALBUMIN Collection DT Specimen Test Name Result Units Re f Range 08/19/2021 07:38 SERUM ALBUMIN 4.3 g/dL 3.5 - 5. 0 A1c (<5.7): No data for HEMOGLOBIN A1C INR (liver clotting factor) (<1.1): PT INR TREND no data AFP: No data available for: ALPHA-FETOPROTEIN FIBROSCAN= n/a PLAN= Emailed Lilliam in radi ology to request elastography added to 09/24 abd u/s. Will follow up after u/s. /mercy/ Jana Morrsi, MSN RN Specialty Care Nurse Signed: 09/18/2021 14:40
--- OUTSIDE RECORDS SUMMARY | 2022-04-20 17:10 | XMS_ITS | Encounter Summary ---
:1945 Author Organization [facility] Address [address] [place] [address] Support Name Relationship Address Phone HERMAN HOOKS Unavailable [address] [phone] [place] [address] HERMAN HOOKS Unavailable [address] [place] [address] Insurance Providers: All historical and current Section [...] Garrett BCBS MA PREFERRED BASIC May 08 [id number] [phone] JESSEE, SONG SPOUSE FEP PROVIDER SELF 2017 85 123 ICE ORGANIZAT PLUS ION (PPO) ONE BCBS OF PREFERRED STAND May 07 [id number] [phone] JESSEE, SONG SPOUSE MASS FEP PROVIDER ANABELA 2006 85 6 ICE ORGANIZAT FAMIL ION (PPO) Y CAREMARK PRESCRIPT CAREM Jul 31 [id number] [phone] BANK S,SONG SPOUSE FEP BCBS ION ARK 2010 0 85 1 ICE FEPRX PLAN CAREMARK-F PRESCRIPT FEP May 02 [id number] [phone] BA NKS,SONG SPOUSE EP BCBS ION CAREM 2010 0 85 1 ICE ARK MEDICARE MEDICARE PART Jun 30, PART A [id number] [phone] ERON HOOKS PATIENT (WNR) (M) A 2012 [id number] 7 NARD MEDICARE MEDICARE PART Jun 30, PART B [id number] [phone] ERON HOOKS PATIENT (WNR) (M) B 2012 [id number] NARD Selected Encounter This section includes the information on record at [place] for the Encounter. Date/Time Encounter Type Encounter Reason Provider Source Description Aug 21, 2021 OFFICE O/P EST PRIMARY ICD-10-CM I10 LYNDON MEDELLIN 09:00 AM LOW 20-29 MIN CARE/MEDICINE Essential (primary) hypertension with Provider Comments: Essential (Primary) Hypertension IHE Encounter Template Text not used by [place] Assessments - Encounter Diagnoses This section includes the primary and secondary diagnoses documented for the Encounter. Date/Time Primary/Secondary Diagnosis Name Provider Source Diagnosis September 02, 2021 PRIMARY Essential (primary) LYNDON MEDELLIN ELD 11:27 AM hypertension Plan of Treatment: Future Appointments (+ 6 [...] 24, 2021 09:00 AM AMBULATORY - NONE [place] [facility] Oct 20, 2021 01:30 PM [facility] Jan 25, 2022 09:00 AM [facility] Feb 04, 2022 10:00 AM AMBULATORY - MEDICINE [place] Lab Results: +/- 30 days of the encounter This section includes the Chemistry and Hematology Lab Results on record with [place] for the patient. Radiology Reports and Pathology Reports are provided separately, in subsequent sections.Lab Results This section contains the Chemistry/Hematology Results that were resulted 30 days before or 30 daysafter the date of the Encounter. Date/Time Source Result Type Result - Unit Interpretation Reference Range Comment Aug 19, 2021 07:38 AM [place] URIC ACID Specimen Type: SERUM No comment enter ed. Ordering Provid er: LYNDON MEDELLIN Report Released Date/Time: Jan 21, 2021 10:01 AM Reporting Lab: [address] [address] Performing Lab: [address] [address] URIC ACID 6.5 3.5-7.2 Aug 19, 2021 07:38 AM [place] FERRITIN Specimen Type: SERUM No comment enter ed. Ordering Provid er: LYNDON MEDELLIN Report Released Date/Time: Jan 21, 2021 10:01 AM Reporting Lab: [facility] [place] [facility] [address] [facility] [address] Performing Lab: [facility] [place] [facility] [address] [address] FERRITIN 419.3 H 20-300 Aug 19, 2021 07:38 AM [place] PSA Specimen Type: SERUM No comment enter ed. Ordering Provid er: LYNDON MEDELLIN Report Released Date/Time: Jan 21, 2021 10:01 AM Reporting Lab: [facility] [place] [facility] [address] [facility] [address] Performing Lab: [facility] [address] [address] PSA 0.47 0.00-4.00 Aug 19, 2021 07:38 AM [place] CBC Specimen Type: BLOOD No comment enter ed. Ordering Provid er: LYNDON MEDELLIN Report Released Date/Time: Jan 21, 2021 10:01 AM Reporting Lab: [facility] [place] [facility] [address] [facility] [address] Performing Lab: [facility] [place] [facility] [address] [facility] [address] WBC 4.43 L 4.50-11.00 RBC 4.62 4.23-5.66 HGB 15.2 12.8-17 HCT 43.0 39.2-50.4 MCV 93.1 82-99 MCHC 35.3 H 30.8-35.1 PLT 145 140-360 RDW-CV 11.9 L 12.0-16.0 MCH 32.9 H 26.2-32.6 Aug 19, 2021 07:38 AM [place] VITAMIN D (25-OH) Specime n Type: SERUM No comment enter ed. Ordering Provid er: LYNDON MEDELLIN Report Released Date/Time: Jan 21, 2021 10:01 AM Reporting Lab: [place] [facility] [place] [facility] [address] [facility] [address] Performing Lab: [place] [facility] [facility] [address] [facility] [address] VITAMIN D (25-OH) 45 20-50 Aug 19, 2021 07:38 AM [place] BASIC METABOLIC PANEL Spe cimen Type: SERUM (fasting) No comment enter ed. Ordering Provid er: LYNDON MEDELLIN Report Released Date/Time: Jan 21, 2021 10:01 AM Reporting Lab: [place] [facility] [place] [facility] [address] [facility] [address] Performing Lab: [place] [facility] [place] [facility] [address] [facility] [address] UREA NITROGEN 13 7-25 GLUCOSE 92 65-100 SODIUM 133 L 135-145 POTASSIUM 4.0 3.5-5.0 CHLORIDE 95 L 100-110 CO2 29 20-30 CREATININE, Serum 1.10 0.50-1.40 eGFR(CKD-EPI 2020) 70 >60 Aug 19, 2021 07:38 AM [place] LIPID PANEL FASTING Speci men Type: SERUM No comment enter ed. Ordering Provid er: LYNDON MEDELLIN Report Released Date/Time: Jan 21, 2021 10:01 AM Reporting Lab: [place] [facility] [place] [facility] [address] [facility] [address] Performing Lab: [place] [facility] [place] [facility] [address] [facility] [address] CHOLESTEROL 175 <7-199 TRIGLYCERIDE 305 H 0-150 LDL calculated Reflex to dLDL 0-129 CHOL/HDL 3.5 HDL CHOLESTEROL 50 40-60 Aug 19, 2021 07:38 AM [place] LIVER FUNCTION Specimen Type: SERUM No comment enter ed. Ordering Provid er: LYNDON MEDELLIN Report Released Date/Time: Jan 21, 2021 10:01 AM Reporting Lab: [place] [facility] [place] [facility] [address] [facility] [address] Performing Lab: [place] [facility] [place] [facility] [address] [facility] [address] PROTEIN,TOTAL 7.5 6.0-8.3 ALBUMIN 4.3 3.5-5.0 ALKALINE PHOSPHATASE 85 40-150 AST 33 5-34 ALT 29 <6-55 BILIRUBIN, TOTAL 1.4 H 0.2-1.2 Aug 19, 2021 07:38 AM [place] CALCIUM Specimen Type: SERUM No comment enter ed. Ordering Provid er: LYNDON MEDELLIN Report Released Date/Time: Jan 21, 2021 10:01 AM Reporting Lab: [facility] [place] [facility] [address] [facility] [address] Performing Lab: [facility] [place] [facility] [address] [facility] [address] CALCIUM 9.1 8.5-10.2 Aug 19, 2021 07:38 AM [place] BILIRUBIN, DIRECT Specime n Type: SERUM No comment enter ed. Ordering Provid er: LYNDON MEDELLIN Report Released Date/Time: Jan 21, 2021 10:01 AM Reporting Lab: [facility] [place] [facility] [address] [facility] [address] Performing Lab: [facility] [address] [facility] [address] BILIRUBIN, DIRECT 0.5 0-0.5 Aug 19, 2021 07:38 AM [place] MICROSCOPIC AUTOMATED, Sp ecimen Type: URINE URINE No comment enter ed. Ordering Provid er: LYNDON MEDELLIN Report Released Date/Time: Jan 21, 2021 10:01 AM Reporting Lab: [facility] [place] [facility] [address] [facility] [address] Performing Lab: [facility] [address] [facility] [address] UA MUCUS FEW Trace UA RBC 3-5 0-3 Aug 19, 2021 07:38 AM [place] URINALYSIS Specimen Type: URINE No comment enter ed. Ordering Provid er: LYNDON MEDELLIN Report Released Date/Time: Jan 21, 2021 10:01 AM Reporting Lab: [facility] [place] [facility] [address] [facility] [address] Performing Lab: [facility] [place] [facility] [address] [facility] [address] UA COLOR Yellow Yellow UA APPEARANCE Clear Clear UA GLUCOSE Negative Negative UA KETONES Negative Neg UA BLOOD Small Neg UA PROTEIN Negative Neg UA NITRITE Negative Neg UA BILIRUBIN Negative Neg UA SPECIFIC GRAVITY 1.010 L 1.016-1.02 2 UA pH 8.0 5.0-9.0 UA UROBILINOGEN <2.0 <2.0 UA LEUKOCYTE ESTERASE Negative Neg Aug 19, 2021 07:38 AM [place] LDL DIRECT Specimen Type: SERUM No comment enter ed. Ordering Provid er: LYNDON MEDELLIN Report Released Date/Time: Jan 21, 2021 10:01 AM Reporting Lab: [facility] [address] [facility] [address] Performing Lab: [facility] [address] [address] LDL DIRECT 67 <10-120 Vital Signs: All taken on the encounter date This section contains inpatient and outpatient Vital Signs collected on the date of the Encounter. Date/Time Temperature Pulse Blood Respiratory SP02 Pain Height Weight Gonzalez dy Source Pressure Rate Mass Index Aug 21 F 84 131/86 18 /min 9 % 69 in 176 lb 26 2021 09:09 /min mm[Hg] IELD AM Social History: Smoking Status (Most current) and Tobacco Use (All prior to encounter date) This section includes the most current, and the historical, smoking and tobacco-related health factors from the [place] facility where the Encounter took place.Current Smoking Status This section includes the most current smoking, or tobacco-related health factor, from the [place] facility where the Encounter took place. Date/Time Current Smoking Status Comment Facility Jan 21, 2021 09:00 AM VA-TOBACCO NEVER USED [facility] Tobacco Use History This section includes a history of the smoking, or tobacco- related health factors, that were collected on or before the date of the Encounter. The data comes from the [place] facility where the Encounter took place. Date/Time Smoking Status/Tobacco Use Comment [facility] Nov 21, 2019 11:06 AM VA-TOBACCO FORMER USER [facility] Nov 21, 2019 11:06 AM [place]-TOBACCO QUIT 15 YRS OR MORE [place] Encounter Notes: All associated encounter notes This section contains the clinical notes associated to the Encounter. Date/Time Encounter Note(s) Provider Source Aug 21, 2021 09:10 AM PREVENTIVE MEDICINE NURSING NOTE: DELON GALLOWAY [place] LOCAL TITLE: CLINICAL REMINDERS/NURSING STANDARD TITLE: PREVENTIVE MEDICINE NURSING NOTE DATE OF NOTE: AUG 21, 2021@09:10 ENTRY DATE: AUG 21, 2021@09:10:29 AUTHOR: DELON LUGO EXP COSIGNER: URGENCY: STATUS: COMPLETED Advance Directive Screen: Patient has an up-to-date Advance Directive doc ument, but it is not on file at this [facility]. Patient has been requested t o forward a copy to his/her clinician. The patient received education about advance di rectives as well as written notification of his/her rights. Td / Tdap Immunization: The patient declines to receive the recommended dose of Tetanus/Diphtheria vaccine (Td). Comment: [place] my outsdie office did it COVID-19 Immunization: The patient declines an additional dose of vacc ine at this time. Comment: will get on the outside /es/ DELON LUGO LPN LICENSED PRACTICAL NURSE Signed: 08/21/2021 09:11 Aug 21, 2021 09:10 AM PHYSICIAN [employer] SUPERVISOR NOTE: LYNDON MEDELLIN LOCAL TITLE: PA NOTE STANDARD TITLE: PHYSICIAN [employer] SUPERVISOR NOTE DATE OF NOTE: AUG 21, 2021@09:10 ENTRY DATE: AUG 21, 2021@09:10:20 AUTHOR: LYNDON MEDELLIN EXP COSIGNER: URGENCY: STATUS: [...] tenderness LABS: reviewed, discussed w/ pt RADS: none germane to today's visit A/P - 1) Normoglycemic 2) HTN - BP 132/86 3) Kidney Function Intact - eGFR 70 and Creat 1 .0 in AUG 21; K 4.0 - cont Cozaar (switched to ARB because ACEI cau sed Cough) - cont HCTZ - diet: *DASH (Dietary Approach Stop HTN) *Na Consumption: about one teaspoon a day (arou nd 2,300 MG) is OK - wt and aerobic exercise 4) C/V Stable - never MO 5) Neuro Stable - never CVA/TIA 6) Lipid Profile - LDL 67 in AUG 21 - diet, wt 7) LFT's WNL Never Had Hepatic Disease Liver Cancer Screen Reminder Pops Up Did Have Surg Intervention PUD and Esophag Vari raúl Yrs Ago - RADS: US, ABD (but I think his liver is ok) 8) CBC Profile; Anything Worrisome? no 9) UA - Heme? yes 3-5 RBC's - RADS: US, Renals, Bladder 10) Fall Risk - no 11) Urinary Incontinence - no RTC JAN 21; fast labs few days prior MEDS: Reconciled Medication Reconciliation: Outpatient: Has the patient been taking medications as docu mented in the EMLR? YES: The patient has been taking medications as documented in the EMLR. Essential Medication List for Review used to co mplete this medication reconciliation. INCLUDED IN THIS LIST: Alphabetical list of act yadira outpatient prescriptions dispensed from this [facility] (local) an d dispensed from another [place] or [facility] facility (remote) as well as inpatien t orders (local, pending and active), local clinic medications, locally documented non-VA medications, and local prescriptions that have or been discontinued in the past 90 days. - All changes in medications, including all non -VA/Herbal/OTC medications were entered into CPRS. Changes: nb - If there were any medications the patient hermes uld no longer take, they were discontinued. D/C'd meds: lll - The patient/caregiver was instructed to updat e this list, discard old lists, and take this list to the next appointme nt, whether with a VA or non-VA provider. HTN Assess for Elevated BP>=140/90: Other Reason: nl today /es/ LYNDON MEDELLIN PA-C STAFF PHYSICIAN [employer] SUPERVISOR Signed: 08/21/2021 09:28
[2022-04-20] MEDS: Morphine Sulfate 4 MG/ML CARTRIDGE IM (17:25)
[2022-04-20 17:30] LABS: MANUAL DIFF FLAG NO
[2022-04-20 17:33] LABS: Basophils Absolute Auto 0.1 X10*3/uL (0.0-0.2); Basophils Percent Auto 0.8 % (0-2); Eosinophils Absolute Auto 0.2 X10*3/uL (0.0-0.4); Eosinophils Percent Auto 2.7 % (0-4); Hematocrit 39.4 % (42.0-52.0); Hemoglobin 13.7 g/dl (14.0-18.0); Imm Gran Abs Auto 0.02 X10*3/uL (0.00-0.03); Imm Gran Pct Auto 0.3 % (0.0-0.4); Lymphocytes Absolute Auto 1.7 X10*3/uL (1.2-4.9); Lymphocytes Percent Auto 21.7 % (20-40); Mean Corpuscular HGB Conc 34.8 g/dl (31.0-36.0); Mean Corpuscular Hemoglobin 31.2 pg (27.0-33.0); Mean Corpuscular Volume 89.7 fL (80.0-98.0); Mean Platelet Volume 8.7 fL (9.4-12.4); Monocytes Absolute Auto 0.8 X10*3/uL (0.1-1.2); Monocytes Percent Auto 9.8 % (2-11); Neutrophils Absolute Auto 5.1 x10*3/uL (2.0-8.3); Neutrophils Percent Auto 64.7 % (45-73); Platelet Count 118 X10*3/uL (160-400); Red Blood Count 4.39 X10*6/uL (4.60-5.80); White Blood Count 7.9 X10*3/uL (4.8-10.8)
[2022-04-20 17:51] LABS: COVID-19 Test Negative (Negative); IDNOW Serial# 16C4AD1C
[2022-04-20 18:04] LABS: Alanine Aminotransferase 26 U/L (0-40); Albumin Level 4.4 g/dL (3.5-5.0); Alkaline Phosphatase 87 U/L (39-117); Anion Gap 12 (12-20); Aspartate Amino Transferase 27 U/L (5-37); Bilirubin Direct 0.2 mg/dL (0.0-0.5); Bilirubin Total 0.8 mg/dL (0.0-1.0); Blood Urea Nitrogen 15 mg/dL (9-16); Carbon Dioxide 29 mmol/L (22-29); Chloride 99 mmol/L (96-108); Creatinine Clr Calc Pharmacy 66.3; Estimated Glomerular Filt Rate > 60; Glucose Random 101 mg/dL (60-115); Potassium 4.3 mmol/L (3.3-5.1); Sodium 136 mmol/L (135-145)
[2022-04-20] MEDS: oxyCODONE HCl Immed Release 5 MG TABLET PO (18:58)
--- NOTE | 2022-04-20 19:12 | ED.LOWEXIN ---
HPI - Extremity Injury (Lower) General Chief Complaint: Extremity Injury, Lower Stated Complaint: LEG PAIN/DEFORMITY FROM URGENT CARE PER EMS Time Seen by Provider: 04/20/22 16:32 Source: patient and EMS Mode of arrival: EMS Limitations: no limitations History of Present Illness HPI Narrative: Patient comes to the emergency room complaining of left lower extremity pain. Patient states that [place], there was uneven pavement and patient tripped and fell. Patient states that he was able to get up, walked back home. An hour later history complaining of pain in the [place] area. Patient states that 20+ years ago he fractured his tibia/fibula. Patient denies hitting his head or losing consciousness, patient denies being on blood thinners. Related Data Previous Rx's Medication Instructions Recorded ondansetron 4 mg disintegrating 4 mg PO Q6-8H PRN nausea and 02/05/21 tablet vomiting #14 tabs pantoprazole 40 mg tablet,delayed 40 mg PO DAILY #30 tabs 02/05/21 release (Protonix) naproxen 500 mg tablet (Naprosyn) 500 mg PO BID #20 tabs 01/19/22 ondansetron 4 mg disintegrating 4 mg PO Q8H 4 days #12 tabs 01/19/22 tablet oxycodone 5 mg tablet 5 mg PO BID PRN pain #7 tabs 04/20/22 Allergies Allergy/AdvReac Type Severity Reaction Status Date / Time No Known Allergies Allergy Unverified 01/17/20 14:50 [No Known Allergies*] Review of Systems Review of Systems: Constitutional : No Weight loss, No Fever, No Chills, No Night Sweats, No Fatigue, No Malaise ENT/Mouth : No Hearing loss, No Ear Pain, No Nasal Congestion, No Sinus Pain, No Hoarseness, No sore throat, No Rhinorrhea, No Swallowing Difficulty Eyes: No Eye Pain, No Swelling, No Redness, No Foreign Body, No Discharge, No Vision Changes Cardiovascular : No Chest Pain, No SOB, No Dyspnea on Exertion, No Orthopnea, No Edema, No Palpitations Respiratory : No Cough, No Sputum, No Wheezing, No Smoke Exposure, No Dyspnea Gastrointestinal : No Nausea, No Vomiting, No Diarrhea, No Constipation, No abdominal Pain, No Hematochezia, No Melena Genitourinary : no irregular bleeding, No Dysuria, No Urinary Frequency, No Hematuria, No Urinary Incontinence, No Urgency, No Flank Pain, No Urinary Flow Changes, No Hesitancy Musculoskeletal : Complaining of right lower extremity pain Skin : No Skin Lesions, No rash Neuro : No Weakness, No Numbness, No Paresthesias, No Loss of Consciousness, No Dizziness, No Headache Psych : No Anxiety/Panic, No Depression, No SI/HI/AH/VH, No Social Issues, Heme/Lymph: No Bruising, No Bleeding,No Lymphadenopathy Endocrine : No Polyuria, No Polydipsia, No Temperature Intolerance [facility] Past Medical History Medical History Hypertension Social History Social History Alcohol intake: never Smoked in Last 30 Days: No Use of substances other than those prescribed or required for medical reasons: No Advance Directives: No Advance Directives Information Provided: No Physical Exam Vital Signs: Vital Signs: Last Vital Signs Temp 98.7 F 04/20/22 16:31 Pulse 66 04/20/22 16:31 Resp 17 04/20/22 16:31 BP 172/71 H 04/20/22 16:31 Pulse Ox 100 04/20/22 16:31 O2 Del Method 04/20/22 16:31 BMI result Body Mass Index 25.1 Const: Other: Appearance: Alert. Oriented X3. No acute distress. Eyes: Pupils equal, round and reactive to light. ENT: Pharynx normal. Neck: Normal inspection. Neck supple. No lymph nodes noted. No crepitus CVS: Normal heart rate and rhythm. Pulses normal. Normal S1 and S2 Respiratory: No respiratory distress. Breath sounds normal. No Wheezing. No rales Abdomen: Soft and nontender. No rigidity. No distention. Skin: Skin warm and dry. Normal skin color. Normal skin turgor. Extremities: Patient has no calf tenderness, no full leg swelling, only echymosis and on the lateral aspect, pain over calh[place]/tibia arae Neuro: Oriented X 3. No motor deficit. No sensory deficit. Moving all extremities. No slurred speech. CN 2 through 12 grossly intact Psych: calm, cooperative, normal affect Course Course Course Narrative: Patient has localized pain, DVT suspected. X-ray negative for fracture. Patient instructed to follow-up with his primary care physician and with orthopedics if needed. In the emergency room, patient had 1 dose of 4 mg morphine, 1 dose of oxycodone p.o.. Medications Administered Discontinued Medications Generic Name Dose Route Start Last Admin Trade Name Nabeel PRN Reason Stop Dose Admin Morphine Sulfate 4 mg 04/20/22 16:38 04/20/22 17:25 Morphine Sulfate 4 Mg/Ml Cartridge IM 04/20/22 16:39 4 mg ONCE ONE Administration Protocol Oxycodone HCl 5 mg 04/20/22 18:25 04/20/22 18:58 Oxycodone Hcl Immed Release 5 Mg Tablet PO 04/20/22 18:26 5 mg ONCE ONE Administration Medical Decision Making Lab Data [facility] Lab Attestation statement: I reviewed the patient's lab results. Result Diagrams: 04/20/22 17:24 04/20/22 17:24 Labs: Lab Results 04/20/22 04/20/22 04/20/22 Range/Units 17:09 17:24 17:24 WBC 7.9 (4.8-10.8) X10*3/uL RBC 4.39 L (4.60-5.80) X10*6/uL Hgb 13.7 L (14.0-18.0) g/dl Hct 39.4 L (42.0-52.0) % MCV 89.7 (80.0-98.0) fL MCH 31.2 (27.0-33.0) pg MCHC 34.8 (31.0-36.0) g/dl RDW 12.0 (11.0-16.0) % Plt Count 118 L (160-400) X10*3/uL MPV 8.7 L (9.4-12.4) fL Immature Gran % (Auto) 0.3 (0.0-0.4) % Neut % (Auto) 64.7 (45-73) % Lymph % (Auto) 21.7 (20-40) % [place] % (Auto) 9.8 (2-11) % Eos % (Auto) 2.7 (0-4) % Baso % (Auto) 0.8 (0-2) % Lymph # (Auto) 1.7 (1.2-4.9) X10*3/uL [place] # (Auto) 0.8 (0.1-1.2) X10*3/uL Eos # (Auto) 0.2 (0.0-0.4) X10*3/uL Baso # (Auto) 0.1 (0.0-0.2) X10*3/uL Abs Immat Gran (auto) 0.02 (0.00-0.03) X10*3/uL Absolute Neuts (auto) 5.1 (2.0-8.3) x10*3/uL Absolute Nucleated RBC 0.000 (0.0-0.012) X10*3/uL Nucleated RBC % (auto) 0.0 (0.0-0.2) /100WBC Sodium 136 (135-145) mmol/L Potassium 4.3 (3.3-5.1) mmol/L Chloride 99 (96-108) mmol/L Carbon Dioxide 29 (22-29) mmol/L Anion Gap 12 (12-20) BUN 15 (9-16) mg/dL Creatinine 1.04 (0.5-1.4) mg/dL Estim Creat Clear Calc 66.3 Estimated GFR > 60 Random Glucose 101 (60-115) mg/dL Calcium 10.0 (8.4-10.2) mg/dL Total Bilirubin 0.8 (0.0-1.0) mg/dL Direct Bilirubin 0.2 (0.0-0.5) mg/dL AST 27 (5-37) U/L ALT 26 (0-40) U/L Alkaline Phosphatase 87 (39-117) U/L Total Protein 7.0 (6.5-8.0) g/dL Albumin 4.4 (3.5-5.0) g/dL COVID-19 (JILLIAN) Negative (Negative) COVID-19 Clin Com See Note Independent Interpretation I performed an independent interpretation of an: Plain X-Ray (Tibia/fibula x-ray negative for fracture, old fracture) Radiology Impression Discussion of test interpretation with radiology: I have reviewed the radiologist's reading. Radiologist Impression: Left knee, tibia fibula, ankle x-ray: INDINGS: Left knee: Mild tricompartmental degenerative joint changes are seen. Mild femoral-tibial chondrocalcinosis. There is no acute fracture, dislocation or joint effusion. Mild to moderate atherosclerosis. Left tibia/fibula: Old healed distal tibia and fibular fractures are seen with associated deformity. The proximal tibia and fibula are intact. The soft tissues are unremarkable. Left ankle: Mild to moderate tibiotalar degenerative joint changes are seen. The tarsal bones are normally aligned. The soft tissues are unremarkable. XR/XR tibia fibula LT 2V IMPRESSION: 1.? Old healed distal tibia and fibular fractures. No acute fracture. 2.? Mild to moderate tibiotalar degenerative joint changes most consistent with osteoarthritis. 3.? Mild tricompartmental left knee degenerative joint changes most consistent with osteoarthritis. ? Discharge Plan Discharge Clinical Impression: Contusion of left lower leg Patient Disposition: Home, Self-Care Instructions: Leg Pain (ED) Additional Instructions: Please follow-up with your primary care physician tomorrow. If you have any worsening or new symptoms, please return to the emergency room or call 911 Prescriptions: New oxycodone 5 mg tablet 5 mg PO BID PRN (Reason: pain) Qty: 7 0RF Rx Instructions: Partial Fill upon patient request. No Action naproxen [Naprosyn] 500 mg tablet 500 mg PO BID Qty: 20 0RF ondansetron 4 mg tablet,disintegrating 4 mg PO Q8H 4 Days Qty: 12 0RF pantoprazole [Protonix] 40 mg tablet,delayed release (DR/EC) 40 mg PO DAILY Qty: 30 0RF ondansetron 4 mg tablet,disintegrating 4 mg PO Q6-8H PRN (Reason: nausea and vomiting) Qty: 14 0RF Referrals: Aye Currie PA-C [Physician Leather Staker] - 2 days
== END 2022-04-20 19:40 | disposition home or self-care (01) ==
PROVIDERS: Emergency Provider Emergency Medicine
DX: S80.12XA Contusion of left lower leg, initial encounter (principal); W01.0XXA Fall on same level from slipping, tripping and stumbling without subsequent striking against object, initial encounter; I10 Essential (primary) hypertension; Z20.822 Contact with and (suspected) exposure to COVID-19; Y93.01 Activity, walking, marching and hiking; Y92.89 Other specified places as the place of occurrence of the external cause; Y99.8 Other external cause status
CPT/HCPCS: 36415; 73560; 73590; 73600; 80048; 80076; 85025; 87635; 93005; 96372; 99284; 99285; J2270

== ENCOUNTER 2022-05-21 08:57 | Outpatient (RCR) | payer MEDICARE, BC, SELFPAY | END 2022-06-01 13:59 | disposition home or self-care (01) | LOC: HO.WCC 08:57 | PROVIDERS: PCP Internal Medicine Medical Oncology; Visit Provider Physician Assistant | DX: S80.12XA Contusion of left lower leg, initial encounter (principal); I10 Essential (primary) hypertension; F12.90 Cannabis use, unspecified, uncomplicated; Z87.891 Personal history of nicotine dependence | CPT/HCPCS: 99212 ==

== ENCOUNTER 2022-07-21 06:45 | Outpatient (REF) | payer MEDICARE, BC, SELFPAY ==
[2022-07-21 11:52] LABS: MANUAL DIFF FLAG NO
[2022-07-21 12:09] LABS: Basophils Absolute Auto 0.1 X10*3/uL (0.0-0.2); Basophils Percent Auto 0.9 % (0-2); Eosinophils Absolute Auto 0.4 X10*3/uL (0.0-0.4); Eosinophils Percent Auto 6.6 % (0-4); Hematocrit 44.9 % (42.0-52.0); Hemoglobin 15.4 g/dl (14.0-18.0); Imm Gran Abs Auto 0.02 X10*3/uL (0.00-0.03); Imm Gran Pct Auto 0.4 % (0.0-0.4); Lymphocytes Absolute Auto 1.4 X10*3/uL (1.2-4.9); Mean Corpuscular HGB Conc 34.3 g/dl (31.0-36.0); Mean Corpuscular Hemoglobin 31.3 pg (27.0-33.0); Mean Corpuscular Volume 91.3 fL (80.0-98.0); Mean Platelet Volume 10.2 fL (9.4-12.4); Monocytes Absolute Auto 0.5 X10*3/uL (0.1-1.2); Neutrophils Percent Auto 56.1 % (45-73); Platelet Count 110 X10*3/uL (160-400); Red Blood Count 4.92 X10*6/uL (4.60-5.80); Red Cell Distribution Width 12.5 % (11.0-16.0); White Blood Count 5.3 X10*3/uL (4.8-10.8)
[2022-07-21 13:07] LABS: Alanine Aminotransferase 22 U/L (0-40); Albumin Level 4.3 g/dL (3.5-5.0); Alkaline Phosphatase 82 U/L (39-117); Anion Gap 13 (12-20); Aspartate Amino Transferase 24 U/L (5-37); Bilirubin Total 1.1 mg/dL (0.0-1.0); Blood Urea Nitrogen 15 mg/dL (9-16); Calcium 9.5 mg/dL (8.4-10.2); Carbon Dioxide 27 mmol/L (22-29); Chloride 104 mmol/L (96-108); Cholesterol 160 mg/dL; Estimated Glomerular Filt Rate > 60; Glucose Fasting 95 mg/dL (60-99); HDL Cholesterol 36 mg/dL; LDL Cholesterol Calculated 88 mg/dl; Prostate Specific Antigen 0.52 ng/mL (<0.05-4.0); Sodium 140 mmol/L (135-145); Total Protein 6.9 g/dL (6.5-8.0); Triglycerides 183 mg/dL
== END 2022-07-21 06:46 | disposition home or self-care (01) ==
LOC: HO.HMGCLDS 06:45
PROVIDERS: PCP Internal Medicine Medical Oncology; Visit Provider Internal Medicine Medical Oncology
DX: Z00.00 Encounter for general adult medical examination without abnormal findings (principal); Z12.5 Encounter for screening for malignant neoplasm of prostate; D69.6 Thrombocytopenia, unspecified; I10 Essential (primary) hypertension
CPT/HCPCS: 36415; 80053; 80061; 84153; 85025

== ENCOUNTER 2023-04-04 06:36 | Outpatient (REF) | payer MEDICARE, BC, SELFPAY ==
[2023-04-04 11:29] LABS: MANUAL DIFF FLAG NO
[2023-04-04 11:37] LABS: Basophils Percent Auto 0.5 % (0-2); Eosinophils Absolute Auto 0.3 X10*3/uL (0.0-0.4); Eosinophils Percent Auto 5.5 % (0-4); Hematocrit 43.2 % (42.0-52.0); Imm Gran Abs Auto 0.02 X10*3/uL (0.00-0.03); Imm Gran Pct Auto 0.4 % (0.0-0.4); Lymphocytes Absolute Auto 1.4 X10*3/uL (1.2-4.9); Lymphocytes Percent Auto 25.7 % (20-40); Mean Corpuscular HGB Conc 34.7 g/dl (31.0-36.0); Mean Corpuscular Hemoglobin 31.7 pg (27.0-33.0); Mean Corpuscular Volume 91.3 fL (80.0-98.0); Mean Platelet Volume 9.4 fL (9.4-12.4); Monocytes Absolute Auto 0.6 X10*3/uL (0.1-1.2); Monocytes Percent Auto 10.2 % (2-11); Neutrophils Absolute Auto 3.2 x10*3/uL (2.0-8.3); Neutrophils Percent Auto 57.7 % (45-73); Platelet Count 154 X10*3/uL (160-400); Red Blood Count 4.73 X10*6/uL (4.60-5.80); Red Cell Distribution Width 11.9 % (11.0-16.0); White Blood Count 5.6 X10*3/uL (4.8-10.8)
[2023-04-04 11:59] LABS: Alanine Aminotransferase 22 U/L (0-40); Albumin Level 4.3 g/dL (3.5-5.0); Alkaline Phosphatase 78 U/L (39-117); Anion Gap 11 (12-20); Aspartate Amino Transferase 25 U/L (5-37); Blood Urea Nitrogen 15 mg/dL (9-16); Calcium 9.9 mg/dL (8.4-10.2); Carbon Dioxide 28 mmol/L (22-29); Chloride 101 mmol/L (96-108); Cholesterol 168 mg/dL (<200); Estimated Glomerular Filt Rate > 60; Glucose Fasting 101 mg/dL (60-99); HDL Cholesterol 36 mg/dL (>40); LDL Cholesterol Calculated 100 mg/dL (<100); Potassium 4.1 mmol/L (3.3-5.1); Sodium 136 mmol/L (135-145); Total Protein 7.4 g/dL (6.5-8.0); Triglycerides 163 mg/dL (<150)
[2023-04-04 12:06] LABS: Prostate Specific Antigen 1.02 ng/mL (<0.05-4.0)
== END 2023-04-04 06:37 | disposition home or self-care (01) ==
LOC: HO.HMGCLDS 06:36
PROVIDERS: PCP Internal Medicine Medical Oncology; Visit Provider Internal Medicine Medical Oncology
DX: Z12.5 Encounter for screening for malignant neoplasm of prostate (principal); R35.1 Nocturia; E66.3 Overweight; I10 Essential (primary) hypertension; D69.6 Thrombocytopenia, unspecified; I49.8 Other specified cardiac arrhythmias
CPT/HCPCS: 36415; 80053; 80061; 84153; 85025

== ENCOUNTER 2023-08-17 06:33 | Outpatient (REF) | payer MEDICARE, BC, SELFPAY ==
[2023-08-17 10:22] LABS: MANUAL DIFF FLAG NO
[2023-08-17 10:32] LABS: Basophils Absolute Auto 0.1 X10*3/uL (0.0-0.2); Basophils Percent Auto 0.8 % (0-2); Eosinophils Absolute Auto 0.3 X10*3/uL (0.0-0.4); Eosinophils Percent Auto 4.7 % (0-4); Hematocrit 45.3 % (42.0-52.0); Hemoglobin 15.7 g/dl (14.0-18.0); Imm Gran Abs Auto 0.02 X10*3/uL (0.00-0.03); Imm Gran Pct Auto 0.3 % (0.0-0.4); Lymphocytes Absolute Auto 1.6 X10*3/uL (1.2-4.9); Lymphocytes Percent Auto 24.3 % (20-40); Mean Corpuscular HGB Conc 34.7 g/dl (31.0-36.0); Mean Corpuscular Hemoglobin 31.6 pg (27.0-33.0); Mean Corpuscular Volume 91.1 fL (80.0-98.0); Monocytes Absolute Auto 0.6 X10*3/uL (0.1-1.2); Monocytes Percent Auto 8.5 % (2-11); Neutrophils Percent Auto 61.4 % (45-73); Platelet Count 183 X10*3/uL (160-400); Red Blood Count 4.97 X10*6/uL (4.60-5.80); Red Cell Distribution Width 12.3 % (11.0-16.0); White Blood Count 6.6 X10*3/uL (4.8-10.8)
[2023-08-17 10:59] LABS: Alanine Aminotransferase 26 U/L (0-40); Albumin Level 4.5 g/dL (3.5-5.0); Alkaline Phosphatase 78 U/L (39-117); Anion Gap 11 (12-20); Aspartate Amino Transferase 25 U/L (5-37); Blood Urea Nitrogen 14 mg/dL (9-16); Calcium 10.1 mg/dL (8.4-10.2); Carbon Dioxide 29 mmol/L (22-29); Chloride 100 mmol/L (96-108); Cholesterol 202 mg/dL (<200); Estimated Glomerular Filt Rate > 60; Glucose Fasting 100 mg/dL (60-99); HDL Cholesterol 34 mg/dL (>40); LDL Cholesterol Calculated 110 mg/dL (<100); Sodium 136 mmol/L (135-145); Total Protein 7.7 g/dL (6.5-8.0); Triglycerides 292 mg/dL (<150)
== END 2023-08-17 06:34 | disposition home or self-care (01) ==
LOC: HO.HMGCLDS 06:33
PROVIDERS: PCP Internal Medicine Medical Oncology; Visit Provider Internal Medicine Medical Oncology
DX: I10 Essential (primary) hypertension (principal); E66.3 Overweight
CPT/HCPCS: 36415; 80053; 80061; 85025

== ENCOUNTER 2023-10-03 07:24 | Day surgery (SDC) | payer MEDICARE, BC, SELFPAY ==
--- NOTE | 2023-09-30 09:50 | P.CONAN_ITS ---
Documented by User: Francy Baeza NP 09/30/23 09:51 HPI - Anesthesia Eval Consult details Narrative: 78yo M for Colonoscopy [facility] Past Medical History Medical History (Updated 09/30/23 @ 08:13 by Yisel Love, SATISH) Diverticulitis Anxiety Hypertension Surgical History Surgical History (Updated 09/30/23 @ 08:13 by Yisel Love, RN) History of surgery on lower extremity History of colostomy reversal H/O vasectomy Hx of colonoscopy Social History Social History (System 05/24/23 @ 13:43 by Sonia Duarte) Alcohol intake: never Patient Tobacco Use Status: Former Tobacco user Use of substances other than those prescribed or required for medical reasons: Yes Are you DNR?: Yes Advance Directives: No Advance Directives Information Provided: Yes Meds Allergies Allergy/AdvReac Type Severity Reaction Status Date / Time No Known Allergies Allergy Unverified 05/24/23 13:43 [No Known Allergies*] Home Medications ?Medication ?Instructions ?Recorded ?Confirmed ?Last Taken ?Type cyclobenzaprine 10 mg tablet 10 mg PO TID 09/30/23 09/30/23 Unknown History gabapentin 300 mg capsule 300 mg PO TID 09/30/23 Unknown History hydrochlorothiazide 25 mg tablet 25 mg PO QAM 09/30/23 09/30/23 Unknown History losartan 25 mg tablet 25 mg PO DAILY 10/03/23 10/03/23 10/03/23 History Exam Pertinent Lab Results Pertinent Lab Results: Laboratory Tests 08/17/23 06:38 WBC 6.6 Hgb 15.7 Hct 45.3 Plt Count 183 Sodium 136 Potassium 4.0 Chloride 100 Carbon Dioxide 29 BUN 14 Creatinine 1.00 Assessment and Plan Assessment Anesthesia Assessment: Chart Reviewed Documented by User: Mike Duarte MD 10/03/23 08:05 [facility] Past Medical History Medical History (Updated 09/30/23 @ 08:13 by Yisel Love RN) Diverticulitis Anxiety Hypertension Family History Family history of problems with anesthesia: No Surgical History Surgical History (Updated 09/30/23 @ 08:13 by Yisel Love RN) History of surgery on lower extremity History of colostomy reversal H/O vasectomy Hx of colonoscopy History of Problems with Anesthesia: No Social History Social History (System 05/24/23 @ 13:43 by Sonia Duarte) Alcohol intake: never Patient Tobacco Use Status: Former Tobacco user Use of substances other than those prescribed or required for medical reasons: Yes Are you DNR?: Yes Advance Directives: No Advance Directives Information Provided: Yes Meds Allergies Allergy/AdvReac Type Severity Reaction Status Date / Time No Known Allergies Allergy Unverified 05/24/23 13:43 [No Known Allergies*] Home Medications ?Medication ?Instructions ?Recorded ?Confirmed ?Last Taken ?Type cyclobenzaprine 10 mg tablet 10 mg PO TID 09/30/23 09/30/23 Unknown History gabapentin 300 mg capsule 300 mg PO TID 09/30/23 Unknown History hydrochlorothiazide 25 mg tablet 25 mg PO QAM 09/30/23 09/30/23 Unknown History losartan 25 mg tablet 25 mg PO DAILY 10/03/23 10/03/23 10/03/23 History Exam Airway Mallampati Class: II TM Dist: >3cm Neck ROM: Limited Loose/Missing/Broken Teeth: No Heart: rrr Lungs: cta Assessment and Plan Assessment Anesthesia Assessment: Anesthesia Plan Discussed Final Anesthetic Review Family History of Problems with Anesthesia: No History of Problems with Anesthesia: No NPO: Yes ASA Class: II Final Preanesthetic Review: No Changes in Pt Med Stat, Meds/Allgs Chart Reviewed, Consent Obtained/Reviewed, Anes Risks/Benef Reviewed and DNR Form (If Appl.) Patient Risk: Intermediate Procedure Risk: Intermediate Anesthetic Plan Anesthetic Plan: TIVA Disposition: Standard PACU
[2023-10-03 07:56] VITALS: BP 116/75; PULSE 85; RESP 16; TEMP 36.2; O2SAT 98; BMI 26.3
[2023-10-03] MEDS: Lactated Ringers 1,000 ML 100 ML IVCONT (08:12)
[2023-10-03 09:36] VITALS: BP 107/68; PULSE 88; RESP 16; TEMP 36.3; O2SAT 97
--- NOTE | 2023-10-03 09:41 | PM.OP ---
Brief Operative Note Date of Service: 10/03/23 Pre-op diagnosis: Screening Post-op diagnosis: other (Diverticulosis) Procedure: Colonoscopy to the cecum and TI Surgeon: Jose Rafael Luo MD Anesthesia: MAC Was an Occupational Therapy Supervisor used for this Procedure?: No Estimated blood loss (mL): 0 Pathology: none sent Condition: stable Disposition: PACU
[2023-10-03 09:52] VITALS: BP 150/95; PULSE 82; RESP 18; TEMP 36.4; O2SAT 98
--- NOTE | 2023-10-03 10:01 | OP_ITS ---
DATE OF SERVICE: 10/03/2023 SURGEON: Jose Rafael Luo MD INDICATIONS: The patient presents for evaluation of personal history of tubular adenoma of the colon, family history of colon cancer, and need for colorectal cancer screening. Full consent has been obtained from him for this, including risks of bleeding and perforation. PREOPERATIVE DIAGNOSIS: POSTOPERATIVE DIAGNOSIS: PROCEDURE PERFORMED: Colonoscopy to cecum and terminal ileum. ESTIMATED BLOOD LOSS: COMPLICATIONS: ANESTHESIA: Monitored anesthesia care. ASSISTANTS: SPECIMENS: PREOPERATIVE DIAGNOSES: Colorectal cancer screening, personal history of tubular adenoma of the colon, family history of colon cancer. POSTOPERATIVE DIAGNOSES: Colorectal cancer screening, personal history of tubular adenoma of the colon, family history of colon cancer, diverticulosis, and internal hemorrhoids. DESCRIPTION OF PROCEDURE: The patient was placed in the left lateral decubitus position. The digital rectal exam revealed no abnormalities. The Olympus video pediatric colonoscope was then entered into the rectum and advanced easily to the cecum. Once in the cecum, I did identify normal-appearing cecal pouch with appendiceal orifice and a normal-appearing ileocecal valve. The terminal ileum was cannulated and appeared normal. The scope was withdrawn back in the colon. The entire cecum and ileocecal valve appeared normal. The scope was slowly withdrawn assessing all mucosal surfaces carefully. Preparation was excellent. I did not visualize any sign of polyps, colitis, nor angiodysplasia. There was a moderate amount of sigmoid diverticulosis. In the rectum, scope was retroflexed, visualizing small internal hemorrhoids, but no other pathology. The rectal mucosa appeared normal. Scope was straightened and withdrawn from the patient. He tolerated the procedure well and was returned to the recovery area in stable condition. IMPRESSION: 1. Diverticulosis. 2. Internal hemorrhoids. PLAN: Given today's negative exam, his negative colonoscopy in 2018, and his age, I do not think he would need any further screening colonoscopies. As such, he will see me on a p.r.n. basis. MD MERLE Waddell/JOSE ANGEL / [phone]
== END 2023-10-03 10:46 | disposition home or self-care (01) ==
PROVIDERS: PCP Internal Medicine Medical Oncology; Visit Provider Internal Medicine
PROC: 0DJD8ZZ Inspection of Lower Intestinal Tract, Via Natural or Artificial Opening Endoscopic (ICD-10-PCS; CPT 45378; principal; 2023-10-03 08:40)
DX: Z12.11 Encounter for screening for malignant neoplasm of colon (principal); K57.30 Diverticulosis of large intestine without perforation or abscess without bleeding; K64.8 Other hemorrhoids; Z86.010 Personal history of colon polyps; Z80.0 Family history of malignant neoplasm of digestive organs; I10 Essential (primary) hypertension; Z79.899 Other long term (current) drug therapy
CPT/HCPCS: G0105; J1596; J2704

== ENCOUNTER 2023-12-01 08:11 | Outpatient (AMB) | payer MEDICARE, BC, SELFPAY ==
[2023-12-01 08:18] VITALS: BP 136/84; PULSE 76; TEMP 36.7; O2SAT 98; BMI 26.2
--- NOTE | 2023-12-01 08:18 | MHC.OFFWIV ---
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 While every effort has been made to ensure accuracy, management nurse rn errors may have been included. The patient is a 79 year old male who presents to the clinic today with concern for cerumen impaction bilaterally. He notes that he was seen by his maintenance mechanic millwright for a hearing aid adjustment, and he was advised to get the cerumen irrigated as he is impacted. He notes that his hearing is slightly worse than his normal. He has no pain, fever, cough, shortness of breath, or any other complaints. [facility] Medical History (Updated 10/03/23 @ 08:25 by Vane Boss) Diverticulitis Hypertension Surgical History (Updated 10/03/23 @ 08:26 by Vane Boss) History of surgery on lower extremity History of colostomy reversal H/O vasectomy Hx of colonoscopy Social History (System 05/24/23 @ 13:43 by Sonia Duarte) Alcohol intake: never Patient Tobacco Use Status: Former Tobacco user Review of Systems Const All systems reviewed & are unremarkable except as noted in HPI and below Physical Exam Vital Signs: Last Vital Signs Temp 98.1 F 12/01/23 08:18 Pulse 76 12/01/23 08:18 BP 136/84 12/01/23 08:18 Pulse Ox 98 12/01/23 08:18 BMI result Body Mass Index 26.2 Const General: cooperative, healthy appearing, comfortable and no acute distress Orientation/consciousness: patient oriented x3 HEENT Head: Yes normal to inspection and Yes normocephalic Ears: EAC's normal, mastoids normal and unable to visualize TM (cerumen impaction) bilaterally General nose exam: Normal external nose present Face and sinus: Yes normal facial exam Resp Effort & Inspection: normal respiratory effort and able to speak in complete sentences Neuro General: patient oriented x3 Office Procedures Cerumen Removal From which ear canal was the cerumen removed: bilateral Removal: irrigation Notes: patient tolerated procedure well, no complications and ear canal clear [id number] Irrigation/Lavage Assessment & Plan Assessment & Plan (1) Impacted cerumen of both ears: Code(s): H61.23 - Impacted cerumen, bilateral Plan: In office irrigation successful. Advised patient to trial debrox ear drops as needed to avoid impaction. (2) Hearing loss due to cerumen impaction: Code(s): H61.20 - Impacted cerumen, unspecified ear Qualifiers: Laterality: bilateral Qualified Code(s): H61.23 - Impacted cerumen, bilateral Plan: In office irrigation successful. Advised patient to trial debrox ear drops as needed to avoid impaction. Advised patient to return to audiology for additional follow up if needed. Plan See above for full details and plan. Medications: Discontinued pantoprazole (Protonix) Discontinued Reason: Patient Completed Course 40 mg PO DAILY 30 tabs 0RF oxycodone Partial Fill upon patient request. Discontinued Reason: Patient Completed Course 5 mg PO BID PRN 7 tabs 0RF pain ondansetron Discontinued Reason: Patient Completed Course 4 mg PO Q6-8H PRN 14 tabs 0RF nausea and vomiting naproxen (Naprosyn) Discontinued Reason: Patient Completed Course 500 mg PO BID 20 tabs 0RF ondansetron Discontinued Reason: Patient Completed Course 4 mg PO Q8H 4 days 12 tabs 0RF Coding Level of Care Code New Pt Level 4 (45739) Diagnoses Impacted cerumen of both ears H61.23 Hearing loss of both ears due to cerumen impaction H61.23 Laterality: bilateral CPT Codes Office Procedure - CPT: 26508-Iar Irrigation/Lavage ([id number])
== END 2023-12-01 09:02 | disposition home or self-care (01) ==
PROVIDERS: PCP Internal Medicine Medical Oncology; Visit Provider Registered Nurse
DX: H61.23 Impacted cerumen, bilateral (principal)
CPT/HCPCS: 69209; 99204

== ENCOUNTER 2024-04-04 06:27 | Outpatient (REF) | payer MEDICARE, BC, SELFPAY ==
[2024-04-04 10:19] LABS: MANUAL DIFF FLAG NO
[2024-04-04 10:34] LABS: Basophils Percent Auto 0.7 % (0-2); Eosinophils Absolute Auto 0.3 X10*3/uL (0.0-0.4); Eosinophils Percent Auto 4.8 % (0-4); Hematocrit 42.6 % (42.0-52.0); Hemoglobin 14.7 g/dl (14.0-18.0); Imm Gran Abs Auto 0.02 X10*3/uL (0.00-0.03); Imm Gran Pct Auto 0.4 % (0.0-0.4); Lymphocytes Absolute Auto 1.4 X10*3/uL (1.2-4.9); Lymphocytes Percent Auto 25.9 % (20-40); Mean Corpuscular HGB Conc 34.5 g/dl (31.0-36.0); Mean Corpuscular Volume 92.8 fL (80.0-98.0); Mean Platelet Volume 8.9 fL (9.4-12.4); Monocytes Absolute Auto 0.6 X10*3/uL (0.1-1.2); Monocytes Percent Auto 10.8 % (2-11); Neutrophils Absolute Auto 3.1 x10*3/uL (2.0-8.3); Neutrophils Percent Auto 57.4 % (45-73); Platelet Count 205 X10*3/uL (160-400); Red Blood Count 4.59 X10*6/uL (4.60-5.80); Red Cell Distribution Width 11.9 % (11.0-16.0); White Blood Count 5.4 X10*3/uL (4.8-10.8)
[2024-04-04 10:53] LABS: Alanine Aminotransferase 21 U/L (0-40); Albumin Level 4.3 g/dL (3.5-5.0); Alkaline Phosphatase 73 U/L (39-117); Anion Gap 13 (12-20); Aspartate Amino Transferase 28 U/L (5-37); Bilirubin Total 0.9 mg/dL (0.0-1.0); Blood Urea Nitrogen 12 mg/dL (9-16); Calcium 10.4 mg/dL (8.4-10.2); Carbon Dioxide 27 mmol/L (22-29); Chloride 100 mmol/L (96-108); Cholesterol 150 mg/dL (<200); Estimated Glomerular Filt Rate > 60; Glucose Fasting 96 mg/dL (60-99); HDL Cholesterol 40 mg/dL (>40); LDL Cholesterol Calculated 91 mg/dL (<100); Potassium 4.5 mmol/L (3.3-5.1); Sodium 135 mmol/L (135-145); Total Protein 7.6 g/dL (6.5-8.0); Triglycerides 95 mg/dL (<150)
[2024-04-04 11:09] LABS: Prostate Specific Antigen 0.52 ng/mL (<0.05-4.0)
== END 2024-04-04 06:28 | disposition home or self-care (01) ==
LOC: HO.HMGCLDS 06:27
PROVIDERS: PCP Internal Medicine Medical Oncology; Visit Provider Internal Medicine Medical Oncology
DX: I10 Essential (primary) hypertension (principal); E66.9 Obesity, unspecified; N40.0 Benign prostatic hyperplasia without lower urinary tract symptoms; Z12.5 Encounter for screening for malignant neoplasm of prostate
CPT/HCPCS: 36415; 80053; 80061; 84153; 85025

== ENCOUNTER 2024-04-20 08:03 | Outpatient (AMB) | payer MEDICARE, BC, SELFPAY ==
[2024-04-20 08:07] VITALS: BP 132/80; PULSE 63; O2SAT 97
--- NOTE | 2024-04-20 08:07 | MHC.OFFWIV ---
Intake Vital Signs 04/20/24 08:07 Weight 190 lb BP 132/80 Blood Pressure Location Lt brachial Position Sitting Pulse 63 Pulse Source Pulse Oximeter Pulse Oximetry (%) 97 Oxygen Delivery Method Room Air Intake Visit Reasons: EP-ear wax removal Intake Note: Patient here for bilat ear blockage. Patient Tobacco Use Status: Former Tobacco user Allergies No Known Allergies [No Known Allergies*] Allergy (Verified 04/20/24 08:18) Do you need a note to return to daycare/school/sports/work: No HPI HPI Comments History of Present Illness Details History The patient is a 78-year-old male presenting with cerumen impaction requiring removal. He reports having the procedure performed six months ago and that his regular physician advised biannual cleaning. The patient denies any current symptoms such as pain or changes in hearing. He confirms previous use of [id number] ear drops for ear wax removal. Physical Exam General: Cooperative, healthy appearing, comfortable and no acute distress Orientation/consciousness: Patient oriented x3 Limitations: No limitations Head: Normal to inspection Ears: Hearing grossly normal bilaterally, external ears normal and TM's normal left ear, cerumen blockage right ear Nose: Normal external nose present Face and sinus: Normal facial exam Eyes: Appearance normal, both eyes and all related structures Neck: Normal visual inspection Respiratory: . Normal respiratory effort, able to speak in complete sentences, Skin: No rashes or lesions noted Neuro: Patient oriented x3 Extremities: Normal to inspection and Yes no clubbing, cyanosis or edema PFSH Medical History (Updated 04/20/24 @ 08:32 by Sonia Calhoun PA-C) Diverticulitis Hypertension Surgical History (Updated 10/03/23 @ 08:26 by Vane Boss) History of surgery on lower extremity History of colostomy reversal H/O vasectomy Hx of colonoscopy Social History (System 05/24/23 @ 13:43 by Sonia Duarte) Alcohol intake: never Patient Tobacco Use Status: Former Tobacco user Review of Systems Const All systems reviewed & are unremarkable except as noted in HPI and below Physical Exam Vital Signs: Last Vital Signs Pulse 63 04/20/24 08:07 BP 132/80 04/20/24 08:07 Pulse Ox 97 04/20/24 08:07 Oxygen Delivery Method Room Air 04/20/24 08:07 Office Procedures Cerumen Removal From which ear canal was the cerumen removed: right Removal: irrigation Notes: patient tolerated procedure well, no complications and ear canal clear [id number] Irrigation/Lavage Assessment & Plan Assessment & Plan (1) Impacted cerumen of right ear: Code(s): H61.21 - Impacted cerumen, right ear Plan: Plan - Perform ear irrigation to remove cerumen from the right ear. - Perform a brief irrigation of the left ear to clear minor remnants. - Reassess post-procedure to ensure clearance of cerumen and evaluate for symptom resolution. Patient was informed and verbally consented to the use of an ambient scribe for clinic note documentation during this visit Coding Level of Care Code New Pt Level 4 (11141) Diagnoses Impacted cerumen of right ear H61.21 CPT Codes Office Procedure - CPT: 22159-Lah Irrigation/Lavage ([id number])
== END 2024-04-20 08:55 | disposition home or self-care (01) ==
PROVIDERS: PCP Internal Medicine Medical Oncology; Visit Provider Physician Assistant
DX: H61.21 Impacted cerumen, right ear (principal)

== ENCOUNTER → 2024-04-20 08:03 | Outpatient (BNVA) | payer MEDICARE, BC, SELFPAY | PROVIDERS: PCP Internal Medicine Medical Oncology; Visit Provider Physician Assistant | DX: H61.21 Impacted cerumen, right ear (principal) | CPT/HCPCS: 69209; 99202 ==

== ENCOUNTER 2024-11-28 07:43 | Outpatient (AMB) | payer MEDICARE, BC, SELFPAY ==
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
--- OUTSIDE RECORDS SUMMARY | 2024-11-28 07:45 | XMS_ITS | Patient Health Record ---
Author Organization [facility] Address [address] [place] [address] Care Team Providers Care Industrial Cafeteria Manager Name Role Phone Jose Rafael Hua MD Primary Care Provider UnavailMariya Mendoza Unavailable [phone] Allergies No Known Allergies Reason For Referral No Information Medications Medication SIG (Take, Route, Frequency, Duration) Notes Start Date End Date Status Ciclopirox Olamine 0.77 % 1 application Externally Twice a day to skin of feet including between the toes; Duration: 30 days Active hydroCHLOROthiazide Active Losartan Potassium A ctive Gabapentin Active Social History Tobacco Use: Social History Observation Description Date Details (start date - stop date) Never Smoker NA - NA Alcohol Screen Question Answer Notes Did you have a drink containing alcohol in the p ast year? No Points 0 Interpretation Negative Tobacco use other than smoking: Question Answer Notes Are you an other tobacco user? Yes V ape Tobacco Control (Standard) Question Answer Notes Tobacco use: Nonsmoker Problems Problem Type SNOMED Code ICD Code Onset Dates Problem Status W/U Status Risk Notes Problem Neuropathy ([id number]) Neuropathy (G62.9) Active confirmed Vital Signs Blood pressure diastolic 70 mm Hg 10/03/2024 Height 5 ft 11 in in 10/03/2024 Blood pressure systolic 125 mm Hg 10/03/2024 Weight 190 lbs 10/03/2024 BMI 26.5 kg/m2 10/03/2024 Encounters Encounter Location Date Provider Diagnosis [facility] [address] [place] [address] 05/11/2024 Mariya Wells Onychomycosis B35.1 ; Tinea pedis of both feet B35.3 ; Pain in right toe(s) M79.674 and Pain in left toe(s) M79.[address] [address] 07/27/2024 Mariya Perica Tinea pedis of both feet B35.3 ; Neuropathy G62.9 ; Onychomycosis B35.1 ; Pain in right toe(s) M79.674 and Pain in left toe(s) M79.[address] [address] 10/03/2024 Mariya Perica Pain in right toe(s) M79.674 ; Onychomycosis B35.1 and Pain in left toe(s) M79.[address] [address] 01/30/2024 Mariya Perica Assessments Encounter Date Diagnosis (ICD Code) Assessment Notes Treatment Notes Treatment Clinical Notes Section Notes 05/11/2024 Onychomycosis (ICD-10 - B35.1) 05/11/2024 Tinea pedis of both feet (ICD-10 - B35.3) 07/27/2024 Neuropathy (ICD-10 - G62.9) 07/27/2024 Tinea pedis of both feet (ICD-10 - B35.3) 10/03/2024 Pain in right toe(s) (ICD-10 - M79.674) 10/03/2024 Onychomycosis (ICD-10 - B35.1) 07/27/2024 Onychomycosis (ICD-10 - B35.1) 05/11/2024 Pain in right toe(s) (ICD-10 - M79.674) 05/11/2024 Pain in left toe(s) (ICD-10 - M79.675) 10/03/2024 Pain in left toe(s) (ICD-10 - M79.675) 07/27/2024 Pain in right toe(s) (ICD-10 - M79.674) 07/27/2024 Pain in left toe(s) (ICD-10 - M79.675) Plan Of Treatment Next Appt Details Provider Name:Mariya Jacob tapia, 01/04/2025 09:00:00 AM, [address] [facility], [place], [address], Insurance Providers Payer Name Payer Address Payer Phone Subscriber Number Group Number Insured Name Patient Relationship to Insured Coverage Start Date Coverage End Date Medicare National [employer] [address] [place] [address] [id number] Gary Mckoy Self - patient is the insured [address] [place] [address] [address] [place] [address] [id number] Gary Mckoy Self - patient is the insured Medical (General) History Medical History History ICD Code Arthritis Back pain covid-19 Diverticulosis High Blood Pressure Numbness Reflux Measles Mumps Chicken pox Joint implants/screws Surgical History Surgery Date(Month/Year) Diverticulitis vagotomy
--- OUTSIDE RECORDS SUMMARY | 2024-11-28 07:45 | XMS_ITS | Clinical Summary ---
Author Organization [facility] ity Address [address] [place] [address] Care Team Providers Care Caster Operator Name Role Phone Unavailable Primary Care Provider Unavailabl e Social History Tobacco Use Types Packs/Day Years Used Date Smoking Tobacco: Never Assessed Sex and Gender Information Value Date Recorded Sex Assigned at Not on file Legal Sex Male 10:36 AM EST Gender Identity Not on file Sexual Orientation Not on file Plan of Treatment Health Maintenance Due Date Last Done Comments DTaP,Tdap,and Td Vaccines (1 - Tdap) 07/02/1966 Pneumococcal Vaccine: 50+ Ye ars (1 of 1 - PCV) 07/02/1997 Zoster Vaccines (1 of 2) 07/02/1997 RSV Immunization Adult Patie nts (1 - 1-dose 75+ series) 07/02/2022 COVID-19 Vaccine ( - 2023-2 5 season) 2024 Depression Screening 05/02/2024 Influenza Vaccine (#1) 2024 HIB Vaccines Aged Out No longer eligi ble based on patient's age to complete this topic HPV Vaccines Aged Out No longer eligi ble based on patient's age to complete this topic Hepatitis A Vaccines Aged Out No long er eligible based on patient's age to complete this topic Hepatitis B Vaccines Aged Out No long er eligible based on patient's age to complete this topic IPV Vaccines Aged Out No longer eligi ble based on patient's age to complete this topic MMR Vaccines Aged Out No longer eligi ble based on patient's age to complete this topic Meningococcal ACWY Vaccine Aged Out N o longer eligible based on patient's age to complete this topic Meningococcal B Vaccine Aged Out No l onger eligible based on patient's age to complete this topic RSV Immunization Patients Un anya 20 months Aged Out No longer eligible b ased on patient's age to complete this topic Varicella Vaccines Aged Out No longer eligible based on patient's age to complete this topic
--- OUTSIDE RECORDS SUMMARY | 2024-11-28 07:46 | XMS_ITS | Clinical Summary ---
Author Organization [facility] Address [address] [facility] [address] [place] [address] Phone Care Team Providers Care Gripper Installer Name Role Phone Brad Thakkar MD Primary Care Provider [phone] Allergies No known active allergies Medications hydroCHLOROthi azide (HYDRODIURIL) 25 MG tablet 0 04/20/20 17 Active chlordiazePOXI DE (LIBRIUM) 25 MG capsule TAKE ONE CAPSULE BY MOUTH EVERY 8 HOURS NEEDED FOR ANXIETY 0 06/07/19 18 Active propranolol (INDERAL) 10 MG immediate release tablet 0 07/27/19 18 Active SHINGRIX, PF, 50 mcg/0.5 mL IM injection inject 0.5 milliliter intramuscularly 0 08/12/19 18 Active Active Problems No known active problems Social History Tobacco Use Types Packs/Day Years Used Date Smoking Tobacco: Former Smokeless Tobacco: Never Alcohol Use Standard Drinks/Week Comments No 0 (1 standard drink = 0.6 oz pur e alcohol) Education Answer Date Recorded Are you interested in more education? Not on driss e 08/27/2022 Are you concerned about learning? Not on file 08/27/2022 No 08/27/2022 No 08/27/2022 Digital Access Answer Date Recorded No 09/25/2022 No 09/25/2022 No 09/25/2022 Reliable internet access at home? Not on file 09/25/2022 Device with a working camera? Not on file Sex and Gender Information Value Date Recorded Sex Assigned at Not on file Legal Sex Male 12:57 PM EDT Gender Identity Not on file Sexual Orientation Not on file Last Filed Vital Signs Vital Sign Reading Time Taken Comments Blood Pressure - - Pulse - - Temperature - - Respiratory Rate - - Oxygen Saturation - - Inhaled Oxygen Concentration - - Weight 86.2 kg (190 lb) 08/19/2017 11:08 AM EDT Height 177.8 cm (5' 10 ) 08/19/2017 11:08 AM EDT Body Mass Index 27.26 08/19/2017 11:08 AM EDT Plan of Treatment Health Maintenance Due Date Last Done Comments POTASSIUM LEVEL 1945 DEPRESSION SCREENING 1959 SMOKING Hx and SMOKELESS TOBACCO SCREENING 07/02/1960 HEPATITIS C SCREENING 07/02/1965 ZOSTER VACCINES (3 of 3) 02/22/2018 018, 12/17/2014 PNEUMOCOCCAL VACCINES (50+ years) (2 of 2 - PPSV23) 03/01/2018 03/01/2017 RSV VACCINE (1 - 1-dose 75+ series) 07/02/2022 LIPID PANEL 02/22/2023 02/22/2018 COVID-19 VACCINE (3 - 2023-2 5 season) 2024 07/31/2020, 2020 Adult Td,Tdap Booster 11/26/2026 11/26/2016 HEPATITIS A VACCINES Aged Out No long er eligible based on patient's age to complete this topic HIB VACCINES Aged Out No longer eligi ble based on patient's age to complete this topic MENINGOCOCCAL VACCINES (ACWY) Aged Out No longer eligible based on patient's age to complete this topic MENINGOCOCCAL VACCINES (B) Aged Out N o longer eligible based on patient's age to complete this topic Medical Devices Not on file Insurance MEDICARE PART A & B [facility] MEDICARE PART A & B [facility] MEDICARE PART A & B [facility] FEDERAL MEDICARE PART A & B [facility] MEDICARE PART A & B [employer] [facility] MEDICARE PART A & B [employer] [facility] MEDICARE PART A & B [facility] MEDICARE PART A & B [facility] MEDICARE PART A & B [facility] Care Teams Gripper Installer Relationship Specialty Start Date End Date Brad Thakkar MD [address] [address] PCP - General Family Medicine 05/30/17 Additional Source Comments The information contained in this document represents components of the legal health record. It is not the complete legal health record.[facility]
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
[2024-11-28 07:50] VITALS: BP 116/50; PULSE 70; TEMP 36.7; O2SAT 97; BMI 26.7
--- NOTE | 2024-11-28 07:50 | AM.OFFWIN_ITS ---
Intake Vital Signs 11/28/24 07:50 Height 5 ft 11 in Weight 191 lb 8 oz BMI 26.7 BP 116/50 L Blood Pressure Location Rt brachial Position Sitting Pulse 70 Pulse Source Pulse Oximeter Temp 98.1 F Temp Source Oral Pulse Oximetry (%) 97 Oxygen Delivery Method Room Air Intake Visit Reasons: EP Ear flushing Patient Tobacco Use Status: Former Tobacco user Account Executive Key Accounts Required: No Allergies No Known Allergies (No Known Allergies*) Allergy (Verified 11/28/24 07:54) Do you need a note to return to daycare/school/sports/work: No HPI HPI Comments History of Present Illness Details History - The patient is a 79-year-old male pres enting with cerumen impaction. - Requires ear wax removal every six mon ths. - No hearing changes or pain reported. Physical Exam General: Cooperative, healthy appearing, comfortable, no acute distress and well developed Orientation: Patient oriented x3 Limitations: No limitations Head: Normal to inspection Ears: External ears normal bilaterally, TM's with impacted cerumen right, some scant cerumen in left Face and sinus: Normal facial exam Neck: Normal visual inspection and Yes full ROM Respiratory: Normal respiratory effort and able to speak in complete sentences. Skin: No rashes or lesions noted Neuro: Patient oriented x3 Extremities: normal to inspection [facility] Medical History (Updated 04/20/24 @ 08:32 by Sonia Calhoun PA-C) Diverticulitis Hypertension Surgical History (Updated 10/03/23 @ 08:26 by Vane Boss RN) History of surgery on lower extremity History of colostomy reversal H/O vasectomy Hx of colonoscopy Social History (System 05/24/23 @ 13:43 by Sonia Duarte) Alcohol intake: never Patient Tobacco Use Status: Former Tobacco user Review of Systems Const All systems reviewed & are unremarkable except as noted in HPI and below Physical Exam Vital Signs: Last Vital Signs Temp 98.1 F 11/28/24 07:50 Pulse 70 11/28/24 07:50 BP 116/50 L 11/28/24 07:50 Pulse Ox 97 11/28/24 07:50 Oxygen Delivery Method Room Air 11/28/24 07:50 BMI result Body Mass Index 26.7 Office Procedures Cerumen Removal Details: blockage in right ear, cleared. some cerumen in left ear, also cleared but not blocked From which ear canal was the cerumen removed: bilateral Removal: irrigation Notes: patient tolerated procedure well, no complications and ear canal clear [id number] Irrigation/Lavage Assessment & Plan Assessment & Plan (1) Impacted cerumen of right ear: Code(s): H61.21 - Impacted cerumen, right ear Plan: Plan Patient was informed and verbally consented to the use of an ambient scribe for clinic note documentation during this visit Both ear canals were flushed successfully, ear canals are both clear and patient tolerated it well. Orders: Orders AMB Cerumen Removal Today H61.21 - Impacted cerumen, right ear Coding Level of Care Code New Pt Level 3 (42537) Diagnoses Impacted cerumen of right ear H61.21 CPT Codes Office Procedure - CPT: 58702-Tmy Irrigation/Lavage ([id number])
== END 2024-11-28 08:48 | disposition home or self-care (01) ==
PROVIDERS: PCP Internal Medicine Medical Oncology; Visit Provider Physician Assistant
DX: H61.21 Impacted cerumen, right ear (principal)

== ENCOUNTER → 2024-11-28 07:43 | Outpatient (BNVA) | payer MEDICARE, BC, SELFPAY | PROVIDERS: PCP Internal Medicine Medical Oncology; Visit Provider Physician Assistant | DX: H61.21 Impacted cerumen, right ear (principal) | CPT/HCPCS: 69209; 99212 ==

== ENCOUNTER 2025-04-09 06:33 | Outpatient (REF) | payer MEDICARE, BC, SELFPAY ==
--- OUTSIDE RECORDS SUMMARY | 2023-11-21 12:00 | XMS_ITS ---
Author Organization Jose Rafael Hua III, MD Address [address] [place] [address] [place] [id number] Care Team Providers Care Energy Trading Analyst Name Role Phone Dr. Jose Rafael Hua III Primary Care Provider [phone] REASON FOR VISIT Follow Up Social History Sex Assigned At : Social History Observation Description Sex Assigned At Male Encounters Encounter Location Date Provider Diagnosis Jose Rafael Hua III, MD [address] [place] [address] [place] [phone] 11/21/2023 Jose Rafael Hua Plan Of Treatment Next Appt Details Provider Name:Jose Rafael Hua , 04/10/2025 09:30:00 AM, [address] [place] [address] [place], [phone], Provider Name:Jose Rafael Hua , 06/20/2025 09:00:00 AM, [address] [place] [address] [place], [phone], Progress Notes * JESSEE TomasdarenDOB:1945 (79 yo M)Acc No.[id number]:11/21/2023 Progress Notes Patient: Gary ALFORD Provider: Keshav Hua MD :1945 A ge:78 Y S ex:Male Date:11/21/2023 Address:[address], [address], [id number] Subjective: * Chief Complaints: * 1 . Follow Up. * Medical History: Objective: * Vitals: Assessment: Plan: * Treatment: * Images: * The named appointment provid er may or may not be the originator of this progress note, and it is not deemed complete until electronically signed by the appointment provider. Sign off status: Pending * Provider: Keshav Hua MD Date: 0 11/21/2023 Generated for Yuliya joshi/Magdy/Glenn on: 06/10/2024 06:37 AM EST
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
--- OUTSIDE RECORDS SUMMARY | 2025-04-09 06:37 | XMS_ITS | Clinical Summary ---
Author Organization [facility] Address [address] [place] [address] Care Team Providers Care Provider Contracting Consultant Name Role Phone Unavailable Primary Care Provider [...] nts (1 - 1-dose 75+ series) 07/02/2022 Depression Screening 05/02/2024 COVID-19 Vaccine ( - 2024-2 6 season) 2024 Influenza Vaccine (#1) 2024 HIB Vaccines Aged [...]
--- OUTSIDE RECORDS SUMMARY | 2025-04-09 06:37 | XMS_ITS | Patient Health Record ---
Author Organization [facility] Address [address] [facility] [place] [address] Care Team Providers Care Oven Drier Tender Name Role Phone Jose Rafael Hua MD Primary Care Provider UnavailMariya Mendoza Unavailable [phone] Allergies No Known Allergies Reason For Referral No Information Medications Medication SIG (Take, Route, Frequency, Duration) Notes Start Date End Date Status Losartan Potassium A ctive Gabapentin Active hydroCHLOROthiazide Active Ciclopirox Olamine 0.77 % 1 application to affected area Externally Twice a day to effected areas on feet; Duration: 30 days 01/04/2025 Active Ciclopirox Olamine 0.77 % 1 application Externally Twice a day to skin of feet including between the toes; Duration: 30 days Active Social History Tobacco Use: Social History Observation Description Date Details (start date - stop date) Never Smoker NA - NA Tobacco use other than smoking: Question Answer Notes Are you an other tobacco user? No Tobacco Control (Standard) Question Answer Notes Tobacco use: Nonsmoker Additional Findings: Tobacco non-user Current no nsmoker AUDIT-C (Standard) Question Answer Notes Did you have a drink containing alcohol in the p ast year? No Points 0 Interpretation Negative Problems Problem Type SNOMED Code ICD Code Onset Dates Problem Status W/U Status Risk Notes Problem Neuropathy (628298232) Neuropathy (G62.9) Active confirmed Vital Signs Blood pressure diastolic 70 mm Hg 01/04/2025 Height 5 ft 11 in in 01/04/2025 Blood pressure systolic 125 mm Hg 01/04/2025 Weight 190 lbs 01/04/2025 BMI 26.5 kg/m2 01/04/2025 Encounters Encounter Location Date Provider Diagnosis [address] [address] 05/11/2024 Mariya Perica Onychomycosis B35.1 ; Tinea pedis of both feet B35.3 ; Pain in right toe(s) M79.674 and Pain in left toe(s) M79.[address] [address] 07/27/2024 Mariya Perica Tinea pedis of both feet B35.3 ; Neuropathy G62.9 ; Onychomycosis B35.1 ; Pain in right toe(s) M79.674 and Pain in left toe(s) M79.[address] [address] 10/03/2024 Mariya Perica Pain in right toe(s) M79.674 ; Onychomycosis B35.1 and Pain in left toe(s) M79.[address] [address] 01/04/2025 Mariya Perica Onychomycosis B35.1 ; Tinea pedis of both feet B35.3 ; Pain in right toe(s) M79.674 and Pain in left toe(s) M79.675 Assessments Encounter Date Diagnosis (ICD Code) Assessment Notes Treatment Notes Treatment Clinical Notes Section Notes 05/11/2024 Onychomycosis (ICD-10 - B35.1) 05/11/2024 Tinea pedis of both feet (ICD-10 - B35.3) 07/27/2024 Neuropathy (ICD-10 - G62.9) 07/27/2024 Tinea pedis of both feet (ICD-10 - B35.3) 10/03/2024 Pain in right toe(s) (ICD-10 - M79.674) 01/04/2025 Onychomycosis (ICD-10 - B35.1) 01/04/2025 Tinea pedis of both feet (ICD-10 - B35.3) Patient Educated with: ATHELETE .pdf (ATHELETE .pdf) 10/03/2024 Onychomycosis (ICD-10 - B35.1) 01/04/2025 Pain in right toe(s) (ICD-10 - M79.674) 07/27/2024 Onychomycosis (ICD-10 - B35.1) 05/11/2024 Pain in right toe(s) (ICD-10 - M79.674) 05/11/2024 Pain in left toe(s) (ICD-10 - M79.675) 10/03/2024 Pain in left toe(s) (ICD-10 - M79.675) 07/27/2024 Pain in right toe(s) (ICD-10 - M79.674) 01/04/2025 Pain in left toe(s) (ICD-10 - M79.675) 07/27/2024 Pain in left toe(s) (ICD-10 - M79.675) Plan Of Treatment Next Appt Details Provider Name:Mariya tapia, 04/09/2025 11:30:00 AM, [address] [place] [address], [phone], Insurance Providers Payer Name Payer Address Payer Phone Subscriber Number Group Number Insured Name Patient Relationship to Insured Coverage Start Date Coverage End Date Medicare National [employer] [address] [facility] [place] [address] [id number] Gary Mckoy Self - patient is the insured [address] [place] [address] [address] [place] [address] [id number] Gary Mckoy Self - patient is the insured Medical (General) History Medical History History ICD Code Arthritis Back pain covid-19 Diverticulosis High Blood Pressure Numbness Reflux Measles Mumps Chicken pox Joint implants/screws Surgical History Surgery Date(Month/Year) Diverticulitis vagotomy
--- OUTSIDE RECORDS SUMMARY | 2025-04-09 06:38 | XMS_ITS | Clinical Summary ---
Author Organization [facility] Address [address] [facility] [address] [place] [address] Phone Care Team Providers Care Pullman Car Repairer Name Role Phone Brad Thakkar MD Primary Care Provider [phone] Allergies No known active allergies Medications hydroCHLOROthi [...] 07/02/1965 ZOSTER VACCINES (3 of 3) 02/22/2018 12/28/2017, 11/30 PNEUMOCOCCAL VACCINES (50+ years) (2 of 2 - PCV20 or PCV21) 03/01/2018 03/01/2017 RSV VACCINE (1 - 1-dose 75+ series) 07/02/2022 LIPID PANEL 02/22/2023 02/22/2018 INFLUENZA VACCINE (#1) 2024 , 12/29/2018, 12/28/2017, Additional history exists COVID-19 VACCINE ( season) 2024 07/31/2020, 2020 Adult Td,Tdap Booster [...] file Insurance MEDICARE PART A & B Member Subscriber Plan / Payer (Ef fective 2012-Present) Name:Gary Hooks Member ID:[id number] Relation to Subscriber:Self Name:Gary Hooks Subscriber ID:[id number] Payer ID:[id number] Group ID:Not on file Type:Medicare Address: [employer] [address] [place] [id number] [facility] MEDICARE PART A & B [facility] MEDICARE PART A & B [facility] [place] [address] MEDICARE PART A & B [facility] [place] [address] MEDICARE PART A & B [facility] [place] [address] MEDICARE PART A & B [facility] [place] [address] MEDICARE PART A & B [facility] [place] [address] MEDICARE PART A & B [facility] MEDICARE PART A & B [facility] Care Teams Pullman Car Repairer Relationship Specialty Start Date End Date Brad Thakkar MD [address] [address] PCP - General Family Medicine 05/30/17 Additional Source Comments The information contained in this document represents components of the legal health record. It is not the complete legal health record.[facility]
--- OUTSIDE RECORDS SUMMARY | 2025-04-09 06:38 | XMS_ITS | Encounter Summary ---
Author Organization [facility] Address [address] [place] [address] Phone Care Team Providers Care Business Intelligence Director Name Role Phone Brad Thakkar MD Primary Care Provider [phone] [phone] Encounter Details Date Type Department Care Team (Late st Contact Info) Description 05/31/2017 Ancillary Orders [facility] Orthopedics & Sports Medicine [address] [place] [address] Lynsey Faria MD [address] [place] [address] Orthopedics & Sports Medicine, [facility] [place] [address] [email or web address] Social History Tobacco Use Types Packs/Day Years Used Date Smoking Tobacco: Never Assessed Sex and Gender Information Value Date Recorded Sex Assigned at Not on file Legal Sex Male 12:57 PM EDT Gender Identity Not on file Sexual Orientation Not on file documented as of this encounter Plan of Treatment Not on file documented as of this encounter Visit Diagnoses Not on filedocumented in this encounter Care Teams Business Intelligence Director Relationship Specialty Start Date End Date Brad Thakkar MD [address] [address] PCP - General Family Medicine 05/30/17 documented as of this encounter Additional Source Comments The information contained in this document represents components of the legal health record. It is not the complete legal health record.[facility]
--- OUTSIDE RECORDS SUMMARY | 2025-04-09 06:38 | XMS_ITS | Encounter Summary ---
Author Organization [facility] Address [address] [facility] [address] [place] [address] Phone Care Team Providers Care Intern Brand Name Role Phone Brad Thakkar MD Primary Care Provider [phone] Encounter Details Date Type Department Care Team (Late st Contact Info) Description 05/31/2017 Ancillary Orders [address] [address] Lynsey Faria MD [address] [place] [address] Orthopedics & Sports Medicine, [place] [address] [email or web address] Left hip pain Social History Tobacco Use Types Packs/Day Years Used Date Smoking Tobacco: Never Assessed Sex and Gender Information Value Date Recorded Sex Assigned at Not on file Legal Sex Male 12:57 PM EDT Gender Identity Not on file Sexual Orientation Not on file documented as of this encounter Plan of Treatment Pending Results Name Type Priority Associated Diagnoses Date /Time FL Guidance Needle Placement Non-Spine Imaging Routine Left hip pain 05/31/2017 8:29 AM EST Scheduled Orders Name Type Priority Associated Diagnoses Orde r Schedule FL Guidance Needle Placement Non-Spine Imaging Routine Left hip pain Expected: 05/31/2017, Expires: 05/31/2018 documented as of this encounter Visit Diagnoses Diagnosis Left hip pain Pain in joint, pelvic region and thigh documented in this encounter Care Teams Intern Brand Relationship Specialty Start Date End Date Brad Thakkar MD [address] [address] PCP - General Family Medicine 1/29/18 documented as of this encounter Additional Source Comments The information contained in this document represents components of the legal health record. It is not the complete legal health record.[facility]
--- OUTSIDE RECORDS SUMMARY | 2025-04-09 06:38 | XMS_ITS | Data Portability ---
Author Organization [facility] [address] Address [address] [place] [address] Assessment No assessment recorded. Plan of Treatment Reminders Order Date Submit Date Provider Last Modified By Organization Details Last Modified Time Details Appointments None recorded. Lab None recorded. Referral emergency medicine referral 2021 022 [email or web address] Not available 17:28:17 Procedures None recorded. Surgeries None recorded. Imaging None recorded. Medication Orders None recorded. Patient TargetsNo targets recorded. Patient Instructions Encounter Date Encounter Id Patient Instructions Last Modified By Organization Details Last Modified Time 04/20/2022 [id number] learning about rice (rest, ice, compression, and elevation) [email or web address] Not available 04/20/2022 15:59:57 EMS called, transferred to the ER. When EMS arrived, patient was informed that they would come into the room shortly. He attempted to wheel himself in the wheelchair out of the room. I advised the patient to stay seated and we would come into the room. [facility] them to the room, and when I arrived patient was attempting to ambulate toward the door and almost fell. I advised him to sit in the chair, and he continued to try to walk, falling into the counter, and said that EMS was not coming fast enough for him. I caught the patient as he began to fall from the counter, and was able to move him into the stretcher, where he continued to try and move and get up for EMS staff. Eventually we did get patient settled into the stretcher and he was taken via EMS, but he was not cooperative at all. [email or web address] Not available 04/20/2022 16:21:49 Reason for Referral Emergency Medicine Referral for Pain in left lower limb Referring Physician: Yo Varela, Urgent Care, Encounter Date: 04/20/2022 Problems Name Problem SNOMED Code Status Onset Date Resolution Date Notes Provider Name and Address Organization Details Recorded Time Hypertensive disorder 79022859 Active 2021 GERMAN li [place] - [facility] 2 15:47:48 Problem Notes None recorded. Procedures Surgical History Date Name Laterality Status Provider Name and Address Organization Details Recorded Time leg repair completed GERMAN ROWE - [facility] 04/20/2022 15:48:33 Imaging Results None recorded. Procedure Notes None recorded. Medical Equipment None Reported. Allergies No known drug allergies Medications Name Sig Start Date Stop Date Status Note LastModified by Organization Details LastModified Time hydrochlorothiazide active Not Availab le Not Available Not Available atenolol active Not Available Not Avai lable Not Available Vitals Date Recorded Body height Body mass index (BMI) Body weight Heart rate Respiratory rate Oxygen saturation Body temperature Systolic And Diastolic Provider Name and Address Organization Details Last Updated DateTime 2 180.34 cm 25.1 kg/m2 62582.6 3 g 76 /min 20 /min 99 % 97.5 [degF] 188/93 mm[Hg] GERMAN GONZALES [place] - [facility] 2 15:51:25 Social History Question Answer Notes LastModified by [employer] Details LastModified Time Tobacco Smoking Status Former Smoker GERMAN li [place] - [facility] 04/20/2022 15:49:00 Which Illicit Or Recreational Drugs Have You Used? Marijuana [email or web address] Information not available 04/20/2022 When Did You Quit Smoking? 16+yearssincel astcigarette Information not available 04/20/2022 Have You Recently Traveled Abroad? No Information not available 04/20/2022 Sex: Unknown Functional Status Question Answer Note LastModified by Organizat ion Details LastModified Time Do you use any illicit or recreational drugs? Yes Information not available 04/20/2022 Do you or have you ever used any other forms of tobacco or nicotine? No Information not available 04/20/2022 What is your level of alcohol consumption? None [email or web address] Information not available 04/20/2022 Mental Status None recorded. Family History Relationship Description Onset Age of this Age Resolved Age Notes LastModified by Organization Details LastModified Time Father No current problems or disability [email or web address] Not available 04/20 15:47:58 Mother No current problems or disability [email or web address] Not available 04/20 15:47:58 Medical History No medical history recorded. Past Encounters Encounter ID Performer Location Encounter Start Date Encounter Closed Date Diagnosis/Indication Diagnosis SNOMED-CT Code Diagnosis ICD10 Code Diagnosis IMO Codes Diagnosis Note [id number] [address] [place] [address] 02/14/2017 09:29:09 02/14/2017 11:16:43 [id number] [address] [place] [address] 02/02/2015 08:38:19 02/02/2015 09:05:19 [id number] [address] [place] [address] 12/02/2018 08:13:36 12/02/2018 08:38:39 [id number] [address] [place] [address] 07/28/2020 08:01:21 07/28/2020 08:39:20 [id number] [address] [place] [address] 02/18/2020 09:14:10 02/18/2020 10:04:32 [id number] [address] [place] [address] 01/31/2015 08:18:24 01/31/2015 09:12:04 [id number] [address] [facility] [place] [address] 01/25/2017 09:24:32 01/25/2017 10:41:06 [id number] [address] [facility] [place] [address] 01/26/2016 08:48:21 01/26/2016 09:36:19 [id number] [address] [facility] [place] [address] 06/28/2018 08:03:39 06/28/2018 08:48:01 [id number] [address] [facility] [place] [address] 01/29/2022 08:12:16 01/29/2022 09:10:14 [id number] [address] [address] [address] 09/07/2019 08:14:04 09/07/2019 09:24:05 [id number] [address] [place] [address] 05/24/2018 11:11:16 05/24/2018 13:02:19 [id number] [address] [place] [address] 01/28/2015 08:27:05 01/28/2015 09:03:01 [id number] [address] [facility] [place] [address] 02/21/2019 09:47:13 02/21/2019 10:53:36 [id number] [address] [facility] [place] [address] 09/12/2015 07:54:08 09/12/2015 08:44:35 [id number] [address] [place] [address] 07/11/2019 09:47:03 07/11/2019 10:31:09 [id number] [address] [place] [address] 04/05/2018 08:44:33 04/05/2018 08:47:31 [id number] [address] [place] [address] 05/04/2019 08:13:10 05/04/2019 08:59:42 [id number] [address] [place] [address] 03/27/2018 10:13:22 03/27/2018 11:21:43 [id number] [facility] [address] [place] [address] 04/20/2022 12:52:54 04/20/2022 16:37:27 Pain in left lower limb 766824830 M79.605 Health Concerns Section Related Observation LastModified by Organization Detai ls LastModified Time None Recorded Concern Status LastModified by Organization Details LastModified Time None Recorded Advance Directives Directive None Recorded Payers Insurance Date Sequence Insurance Name Policy Number Policy Garrett Covered Member ID Garrett Member ID Guarantor Name 04/20/2022 1 [place] [employer] Gary Mckoy [id number] Gary Mckoy 06/19/2022 2 [place] Norma Jacob Ean [id number] Gary Mckoy Notes Date Note Type Note Provider Name and Address Organization Details Recorded Time 04/20/2022 text/html Lower Leg UCReported by PatientPt reports he fell earlier today and thinks his leg is broken. He is unable to move or walk. He was made aware at initial check in that we do not have x-ray. Denies numbness, tingling, weakness. Did not hit his head or LOC. Requesting we call ems for him. He will not let us examine or touch the leg. [facility] Delvalle [address] [place], [address], [place] - [facility] 04/20/2022 16:25:35
--- OUTSIDE RECORDS SUMMARY | 2025-04-09 06:38 | XMS_ITS | Encounter Summary ---
Author Organization [facility] Address [address] [place] [address] Phone Care Team Providers Care Musculoskeletal Physician Name Role Phone Brad Thakkar MD Primary Care Provider [phone] [phone] Encounter Details Date Type Department Care Team (Late st Contact Info) Description 03/27/2018 Procedure Pass OR Admitting Dept - [facility] Department [address] [place] [address] Social History Tobacco Use Types Packs/Day Years Used Date Smoking Tobacco: Former Smokeless Tobacco: Never Alcohol Use Standard Drinks/Week Comments No 0 (1 standard drink = 0.6 oz pur e alcohol) Sex and Gender Information Value Date Recorded Sex Assigned at Not on file Legal Sex Male 12:57 PM EDT Gender Identity Not on file Sexual Orientation Not on file documented as of this encounter Plan of Treatment Not on file documented as of this encounter Visit Diagnoses Not on filedocumented in this encounter Care Teams Musculoskeletal Physician Relationship Specialty Start Date End Date Brad Thakkar MD [facility] [address] [address] PCP - General Family Medicine 05/30/17 documented as of this encounter Additional Source Comments The information contained in this document represents components of the legal health record. It is not the complete legal health record.[facility]
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
[2025-04-09 10:46] LABS: MANUAL DIFF FLAG NO
[2025-04-09 10:51] LABS: Hematocrit 45.5 % (42.0-52.0); Hemoglobin 15.6 g/dl (14.0-18.0); Imm Gran Abs Auto 0.02 X10*3/uL (0.00-0.03); Imm Gran Pct Auto 0.3 % (0.0-0.4); Lymphocytes Absolute Auto 1.6 X10*3/uL (1.2-4.9); Mean Corpuscular HGB Conc 34.3 g/dl (31.0-36.0); Mean Corpuscular Hemoglobin 31.6 pg (27.0-33.0); Mean Corpuscular Volume 92.1 fL (80.0-98.0); NRBC Abs Auto 0.000 X10*3/uL (0.0-0.012); NRBC Pct Auto 0.0 /100WBC (0.0-0.2); Platelet Count 178 X10*3/uL (160-400); Red Blood Count 4.94 X10*6/uL (4.60-5.80); White Blood Count 7.0 X10*3/uL (4.8-10.8)
[2025-04-09 11:22] LABS: Alanine Aminotransferase 29 U/L (0-40); Albumin Level 4.8 g/dL (3.5-5.0); Alkaline Phosphatase 86 U/L (39-117); Anion Gap 14 (12-20); Aspartate Amino Transferase 33 U/L (5-37); Blood Urea Nitrogen 17 mg/dL (9-16); Calcium 9.9 mg/dL (8.4-10.2); Carbon Dioxide 26 mmol/L (22-29); Chloride 101 mmol/L (96-108); Cholesterol 172 mg/dL (<200); Estimated Glomerular Filt Rate > 60; HDL Cholesterol 33 mg/dL (>40); Potassium 3.9 mmol/L (3.3-5.1); Sodium 137 mmol/L (135-145); Total Protein 7.7 g/dL (6.5-8.0); Triglycerides 228 mg/dL (<150)
[2025-04-09 11:59] LABS: Prostate Specific Antigen 0.54 ng/mL (<0.05-4.0)
== END 2025-04-09 06:34 | disposition home or self-care (01) ==
LOC: HO.HMGCLDS 06:33
PROVIDERS: PCP Internal Medicine Medical Oncology; Visit Provider Internal Medicine Medical Oncology
DX: I10 Essential (primary) hypertension (principal); E66.3 Overweight; D69.6 Thrombocytopenia, unspecified; N40.0 Benign prostatic hyperplasia without lower urinary tract symptoms; Z12.5 Encounter for screening for malignant neoplasm of prostate
CPT/HCPCS: 36415; 80053; 80061; 84153; 85025